=== PATIENT | female | born 1955 | race Caucasian/White ===

== ENCOUNTER 2017-10-01 16:46 | Emergency (ER) | payer OTHER, SELFPAY ==
[~2017-10-01] VITALS: Ht 177.8 cm; Wt 106.6 kg
[~2017-10-01 16:46] MED LIST: ACEASPCAF; ALBU3IS INH; ALBU90OI INH; ALPR.25; ALPR.25 PO; ALUMAG30SU PO; AMIT10; AMIT10 PO; ATEN25; ATEN50; ATOR40TA PO; BUPR100 PO; BUPR100ER PO; CEPH500 PO; CYAN500 PO; CYCL10 PO; DAYQUIL; DEPAKOTE; DIAZ5 PO; DILT240; DILT360ER; DILTIAZEM HCL; DIOVAN; DIVA125EC PO; DOCU100 PO; Detrol1 MG PO; Diovan Hct 1601 EACH PO; EFFEXOR; ERGO400 PO; ESZO3 PO; ETOD500; FAMO20 PO; FLUDROCORT PO; FLUSAL2505 INH; FURO20 PO; FURO40; Fludrocortison0.1 MG PO; GABA600 PO; GLIM2 PO; GLIP5; HYDACE5 PO; LEVFLO500 PO; LEVO750 PO; LEVSOD100 PO; LEVSOD112; LEVSOD125; LEVSOD125 PO; LEVSOD137 PO; LEVSOD150; LEVSOD150 PO; LEVSOD50; LORA.5 PO; LORA1 PO; LUNESTA; LYRICA; MECL25 PO; Micro-K10 MEQ PO; NAPR250 PO; NISO10ER; NISO10ER PO; NISOLDIPINE 34 MG PO; OMEP20ER PO; OXYACE5T; OXYACE5T PO; OXYB5; OXYB5 PO; OXYB5ER; OXYBUTIN; Omeprazole20 M1 PO; PANT20; PARO10 PO; PARO20; PARO20 PO; PAXIL; PIOG15; POTASSIUM PO; POTCHL20ER; POTCHL20ER PO; PRED5; PRED5 PO; PREDNISONE; PREG150 PO; PREG25 PO; PRIM50 PO; PROM25 PO; Percocet 5-3251 EACH PO; Prednisone20 MG; RISP2 PO; SULAR; SYNTHROID; Synthroid112 MCG PO; TOPI100 PO; TOPI25; TRAZ100; TRAZ100 PO; TRAZ150T57 PO; TRAZ50; TRAZADONE; VALS80; VALS80 PO; ZALE10; [UNRECOGNIZED DRUG - OTHER]
[2017-10-01 17:47] LABS: BASOPHILS ABSOLUTE AUTO 0.03 K/mm3 (0.00-0.23); BASOPHILS PERCENT AUTO 0 % (0-2); EOSINOPHILS ABSOLUTE AUTO 0.15 K/mm3 (0.00-0.68); EOSINOPHILS PERCENT AUTO 2 % (0-6); Hematocrit 36.5 % (33.0-51.0); Hemoglobin 11.1 g/dL (11.5-16.0); IMMATURE GRAN ABSOLUTE AUTO 0.04 K/mm3 (0.00-0.10); IMMATURE GRAN PERCENT AUTO 0 % (0-1); LYMPHOCYTES ABSOLUTE AUTO 1.96 K/mm3 (0.84-5.20); LYMPHOCYTES PERCENT AUTO 20 % (21-46); MONOCYTES ABSOLUTE AUTO 0.31 K/mm3 (0.16-1.47); MONOCYTES PERCENT AUTO 3 % (4-13); Mean Corpuscular HGB Conc 30.4 g/dL (31.5-36.5); Mean Corpuscular Volume 89 fL (80-100); Mean Platelet Volume 9.1 fL (9.1-12.4); NEUTROPHILS ABSOLUTE AUTO 7.19 K/mm3 (1.96-9.15); NEUTROPHILS PERCENT AUTO 74 % (41-73); Platelet Count 464 K/mm3 (150-400); RDW Coefficient Variation 15.5 % (11.7-14.2); RDW Standard Deviation 49.8 fL (35.1-46.3); Red Blood Cell Count 4.11 M/mm3 (3.80-5.20); White Blood Cell Count 9.68 K/mm3 (4.00-11.30)
[2017-10-01 18:00] LABS: Alanine Aminotransfer (ALT/SGP 13 U/L (12-78); Albumin, Blood 3.4 g/dL (3.4-5.0); Albumin/Globulin Ratio 0.8 (0.8-1.8); Alk Phos 146 U/L (50-136); Anion Gap 10 mmol/L (6-16); Aspartate Aminotrans (AST/SGOT 13 U/L (12-37); Bilirubin, Total 0.2 mg/dL (0.1-1.0); Blood Urea Nitrogen 14 mg/dL (8-24); Bun/Creatinine Ratio 13.5 (12.0-20.0); CO2, Blood 26 mmol/L (21-32); Calcium, Blood 8.8 mg/dL (8.5-10.1); Chloride, Blood 101 mmol/L (98-108); Creatinine, Blood 1.04 mg/dL (0.40-1.00); Globulin, Blood 4.1 g/dL (2.2-4.0); Glomerular Filtration Rate 57 (60-); Glucose, Blood 109 mg/dL (70-99); Potassium, Blood 3.6 mmol/L (3.5-5.5); Sodium, Blood 137 mmol/L (136-145); Total Protein, Blood 7.5 g/dL (6.4-8.2); Troponin I <0.015 ng/mL (0.000-0.040)
[2017-10-01] MEDS ORDERED: Norco 5-325 Ta1 EACH PO (19:55)
== END 2017-10-01 20:11 | disposition home or self-care (01) ==
LOC: ER 16:46
PROVIDERS: Emergency Medicine
DX: R07.9 Chest pain, unspecified (principal); E11.9 Type 2 diabetes mellitus without complications; I10 Essential (primary) hypertension; E78.5 Hyperlipidemia, unspecified
CPT/HCPCS: 36415; 71046; 71100; 80053; 83880; 84484; 85025; 93005; 93010; 96374; 96375; 99284; J1170; J2405

== ENCOUNTER 2017-11-25 16:25 | Observation (INO) | payer OTHER, SELFPAY ==
[~2017-11-25] VITALS: Ht 177.8 cm; Wt 103.7 kg
[~2017-11-25 16:25] MED LIST changes: +Norco 5-325 Ta1 EACH PO
[2017-11-25 17:07] LABS: BASOPHILS ABSOLUTE AUTO 0.04 K/mm3 (0.00-0.23); BASOPHILS PERCENT AUTO 1 % (0-2); EOSINOPHILS ABSOLUTE AUTO 0.09 K/mm3 (0.00-0.68); EOSINOPHILS PERCENT AUTO 1 % (0-6); Hematocrit 33.3 % (33.0-51.0); Hemoglobin 10.7 g/dL (11.5-16.0); IMMATURE GRAN ABSOLUTE AUTO 0.03 K/mm3 (0.00-0.10); IMMATURE GRAN PERCENT AUTO 0 % (0-1); LYMPHOCYTES ABSOLUTE AUTO 2.01 K/mm3 (0.84-5.20); LYMPHOCYTES PERCENT AUTO 25 % (21-46); MONOCYTES ABSOLUTE AUTO 0.44 K/mm3 (0.16-1.47); MONOCYTES PERCENT AUTO 5 % (4-13); Mean Corpuscular HGB 27.6 pg (26.0-34.0); Mean Corpuscular HGB Conc 32.1 g/dL (31.5-36.5); Mean Corpuscular Volume 86 fL (80-100); Mean Platelet Volume 8.3 fL (9.1-12.4); NEUTROPHILS PERCENT AUTO 68 % (41-73); Platelet Count 448 K/mm3 (150-400); RDW Standard Deviation 50.3 fL (35.1-46.3); Red Blood Cell Count 3.88 M/mm3 (3.80-5.20); White Blood Cell Count 8.21 K/mm3 (4.00-11.30)
[2017-11-25 17:49] LABS: Albumin, Blood 3.2 g/dL (3.4-5.0); Albumin/Globulin Ratio 0.7 (0.8-1.8); Bilirubin, Total 0.2 mg/dL (0.1-1.0); Bun/Creatinine Ratio 10.2 (12.0-20.0); Calcium, Blood 8.8 mg/dL (8.5-10.1); Creatinine, Blood 1.08 mg/dL (0.40-1.00); Globulin, Blood 4.7 g/dL (2.2-4.0); Potassium, Blood 2.7 mmol/L (3.5-5.5); Total Protein, Blood 7.9 g/dL (6.4-8.2)
[2017-11-25 18:20] LABS: Magnesium, Blood 1.9 mg/dL (1.6-2.4); Phosphorus, Blood 1.9 mg/dL (2.5-4.9); Thyroxine (T4) 12.3 ug/dL (4.8-13.9)
[2017-11-25 18:32] LABS: Triiodothyronine, Free 2.28 pg/mL (2.18-3.98)
[2017-11-25 18:34] LABS: Thyroid Stimulating Hormone 0.097 uIU/mL (0.360-4.800)
[2017-11-25] MEDS ORDERED: ATOR40TA PO (22:26)
[2017-11-25] MEDS ORDERED: POTCHL20ER PO (22:27)
[2017-11-25 22:52] LABS: Source, Urine Clean Catch
[2017-11-25 22:57] LABS: Bilirubin, Urine Neg (Neg); Blood, Urine 1+ (Neg); Glucose Qualitative, Urine Neg (Neg); Ketones, Urine Neg (Neg); Leukocyte Esterase, Urine 3+ (Neg); Nitrite, Urine Pos (Neg); Protein, Urine Neg (Neg); Urobilinogen, Urine NORM (Normal)
[2017-11-25 23:04] LABS: Appearance, Urine Clear (Clear); Color, Urine Yellow (P-Yellow)
[2017-11-25 23:05] LABS: Red Blood Cells, Urine 0-2 /hpf (0-2); White Blood Cells, Urine 25-50 /hpf (0-5)
[2017-11-25 23:06] LABS: Bacteria Many /hpf; Squamous Epithelial Cells Few /hpf (Few)
[2017-11-26 05:42] LABS: Magnesium, Blood 2.5 mg/dL (1.6-2.4)
[2017-11-26 05:43] LABS: Anion Gap 10 mmol/L (6-16); Blood Urea Nitrogen 9 mg/dL (8-24); Bun/Creatinine Ratio 9.3 (12.0-20.0); CO2, Blood 26 mmol/L (21-32); Calcium, Blood 8.5 mg/dL (8.5-10.1); Chloride, Blood 98 mmol/L (98-108); Creatinine, Blood 0.97 mg/dL (0.40-1.00); Glomerular Filtration Rate >60 (60-); Glucose, Blood 86 mg/dL (70-99); Potassium, Blood 3.1 mmol/L (3.5-5.5); Sodium, Blood 134 mmol/L (136-145)
[2017-11-27 05:17] LABS: Anion Gap 6 mmol/L (6-16); Blood Urea Nitrogen 13 mg/dL (8-24); Bun/Creatinine Ratio 13.8 (12.0-20.0); CO2, Blood 30 mmol/L (21-32); Calcium, Blood 8.6 mg/dL (8.5-10.1); Chloride, Blood 100 mmol/L (98-108); Creatinine, Blood 0.94 mg/dL (0.40-1.00); Glomerular Filtration Rate >60 (60-); Glucose, Blood 94 mg/dL (70-99); Potassium, Blood 3.5 mmol/L (3.5-5.5); Sodium, Blood 136 mmol/L (136-145)
[2017-11-27] MEDS ORDERED: SPIR25 PO (11:07)
== END 2017-11-27 12:44 | disposition home or self-care (01) ==
LOC: ER 16:25 → MEDS 16:26
PROVIDERS: Emergency Medicine; Internal Medicine
DX: E87.6 Hypokalemia (principal); E87.1 Hypo-osmolality and hyponatremia; E86.0 Dehydration; I12.9 Hypertensive chronic kidney disease with stage 1 through stage 4 chronic kidney disease, or unspecified chronic kidney disease; E11.22 Type 2 diabetes mellitus with diabetic chronic kidney disease; N18.9 Chronic kidney disease, unspecified; N17.9 Acute kidney failure, unspecified; E03.9 Hypothyroidism, unspecified; M81.0 Age-related osteoporosis without current pathological fracture; F32.9 Major depressive disorder, single episode, unspecified; K21.9 Gastro-esophageal reflux disease without esophagitis; E78.5 Hyperlipidemia, unspecified; G62.89 Other specified polyneuropathies; Z88.2 Allergy status to sulfonamides; Z88.5 Allergy status to narcotic agent; Z88.8 Allergy status to other drugs, medicaments and biological substances; Z79.891 Long term (current) use of opiate analgesic; Z90.49 Acquired absence of other specified parts of digestive tract; Z90.710 Acquired absence of both cervix and uterus
CPT/HCPCS: 36415; 80048; 80053; 81001; 82947; 83036; 83735; 84100; 84145; 84436; 84443; 84481; 85025; 85651; 86140; 87077; 87086; 87186; 93005; 93010; 96361; 96365; 96366; 96367; 96368; 96372; 96376; 97116; 97161; 97165; 97530; 97535; 99285; G0378; G8978; G8979; G8987; G8988; G8989; J0696; J1650; J2001; J3475; J3480; J7030; J7040; J7060

== ENCOUNTER 2018-01-26 15:39 | Inpatient (IN) | payer OTHER ==
[~2018-01-26] VITALS: Ht 177.8 cm; Wt 103.0 kg
[~2018-01-26 15:39] MED LIST changes: +SPIR25 PO
[2018-01-26] MEDS ORDERED: Trazodone HCl300 MG PO (15:55)
[2018-01-26 16:46] LABS: BASOPHILS ABSOLUTE AUTO 0.06 K/mm3 (0.00-0.23); BASOPHILS PERCENT AUTO 1 % (0-2); EOSINOPHILS ABSOLUTE AUTO 0.22 K/mm3 (0.00-0.68); EOSINOPHILS PERCENT AUTO 3 % (0-6); Hematocrit 34.2 % (33.0-51.0); Hemoglobin 10.5 g/dL (11.5-16.0); IMMATURE GRAN ABSOLUTE AUTO 0.02 K/mm3 (0.00-0.10); IMMATURE GRAN PERCENT AUTO 0 % (0-1); LYMPHOCYTES ABSOLUTE AUTO 2.81 K/mm3 (0.84-5.20); LYMPHOCYTES PERCENT AUTO 35 % (21-46); MONOCYTES ABSOLUTE AUTO 0.77 K/mm3 (0.16-1.47); MONOCYTES PERCENT AUTO 9 % (4-13); Mean Corpuscular HGB 27.1 pg (26.0-34.0); Mean Corpuscular HGB Conc 30.7 g/dL (31.5-36.5); Mean Corpuscular Volume 88 fL (80-100); Mean Platelet Volume 9.3 fL (9.1-12.4); NEUTROPHILS ABSOLUTE AUTO 4.27 K/mm3 (1.96-9.15); NEUTROPHILS PERCENT AUTO 53 % (41-73); Platelet Count 391 K/mm3 (150-400); RDW Coefficient Variation 14.7 % (11.7-14.2); RDW Standard Deviation 47.3 fL (35.1-46.3); Red Blood Cell Count 3.88 M/mm3 (3.80-5.20); White Blood Cell Count 8.15 K/mm3 (4.00-11.30)
[2018-01-26 17:10] LABS: Alanine Aminotransfer (ALT/SGP 13 U/L (12-78); Albumin, Blood 3.3 g/dL (3.4-5.0); Albumin/Globulin Ratio 0.8 (0.8-1.8); Alk Phos 111 U/L (50-136); Anion Gap 7 mmol/L (6-16); Aspartate Aminotrans (AST/SGOT 15 U/L (12-37); Bilirubin, Total 0.2 mg/dL (0.1-1.0); Blood Urea Nitrogen 8 mg/dL (8-24); Bun/Creatinine Ratio 8.4 (12.0-20.0); CO2, Blood 26 mmol/L (21-32); Calcium, Blood 8.7 mg/dL (8.5-10.1); Chloride, Blood 105 mmol/L (98-108); Creatinine, Blood 0.95 mg/dL (0.40-1.00); Globulin, Blood 3.9 g/dL (2.2-4.0); Glomerular Filtration Rate >60 (60-); Glucose, Blood 86 mg/dL (70-99); Magnesium, Blood 2.1 mg/dL (1.6-2.4); Potassium, Blood 3.6 mmol/L (3.5-5.5); Sodium, Blood 138 mmol/L (136-145); Total Protein, Blood 7.2 g/dL (6.4-8.2)
[2018-01-26 17:17] LABS: Thyroid Stimulating Hormone 0.667 uIU/mL (0.360-4.800); Troponin I <0.015 ng/mL (0.000-0.040)
[2018-01-26 21:54] LABS: Source, Urine Clean Catch
[2018-01-26 21:56] LABS: Bilirubin, Urine Neg (Neg); Blood, Urine Neg (Neg); Glucose Qualitative, Urine Neg (Neg); Ketones, Urine Neg (Neg); Leukocyte Esterase, Urine 3+ (Neg); Nitrite, Urine Neg (Neg); Protein, Urine Neg (Neg); Specific Gravity, Urine 1.005 (1.003-1.022); Urobilinogen, Urine NORM (Normal)
[2018-01-26 22:09] LABS: Appearance, Urine Clear (Clear); Color, Urine Yellow (P-Yellow)
[2018-01-26 22:11] LABS: Amorphous Light (0-Heavy); Bacteria Many /hpf; Red Blood Cells, Urine 0-2 /hpf (0-2); Squamous Epithelial Cells Few /hpf (Few)
[2018-01-27 03:43] LABS: Hemoglobin 9.7 g/dL (11.5-16.0); Mean Corpuscular HGB 27.2 pg (26.0-34.0); Mean Corpuscular HGB Conc 31.3 g/dL (31.5-36.5); Mean Corpuscular Volume 87 fL (80-100); Mean Platelet Volume 9.1 fL (9.1-12.4); Platelet Count 375 K/mm3 (150-400); RDW Coefficient Variation 14.6 % (11.7-14.2); RDW Standard Deviation 47.2 fL (35.1-46.3); Red Blood Cell Count 3.56 M/mm3 (3.80-5.20); White Blood Cell Count 11.08 K/mm3 (4.00-11.30)
[2018-01-27 04:00] LABS: Anion Gap 7 mmol/L (6-16); Blood Urea Nitrogen 8 mg/dL (8-24); Bun/Creatinine Ratio 9.5 (12.0-20.0); CO2, Blood 27 mmol/L (21-32); Calcium, Blood 8.4 mg/dL (8.5-10.1); Chloride, Blood 105 mmol/L (98-108); Creatinine, Blood 0.84 mg/dL (0.40-1.00); Glomerular Filtration Rate >60 (60-); Glucose, Blood 142 mg/dL (70-99); Potassium, Blood 3.7 mmol/L (3.5-5.5); Sodium, Blood 139 mmol/L (136-145)
[2018-01-27] MEDS ORDERED: FOLI400 PO (10:34)
[2018-01-27] MEDS ORDERED: PRAZ1 PO (10:36)
[2018-01-27] MEDS ORDERED: PRIM50 PO (10:38)
[2018-01-27] MEDS ORDERED: ARIP10 PO (10:39)
[2018-01-27] MEDS ORDERED: OMEPRAZOLE MAGN20 MG PO (10:39)
[2018-01-27] MEDS ORDERED: PRED5 PO ×2 (10:41)
[2018-01-27] MEDS ORDERED: SPIR25 PO (10:44)
[2018-01-28 05:26] LABS: Anion Gap 8 mmol/L (6-16); Blood Urea Nitrogen 9 mg/dL (8-24); Bun/Creatinine Ratio 9.4 (12.0-20.0); CO2, Blood 28 mmol/L (21-32); Calcium, Blood 8.9 mg/dL (8.5-10.1); Chloride, Blood 101 mmol/L (98-108); Creatinine, Blood 0.96 mg/dL (0.40-1.00); Glomerular Filtration Rate >60 (60-); Glucose, Blood 139 mg/dL (70-99); Potassium, Blood 3.8 mmol/L (3.5-5.5); Sodium, Blood 137 mmol/L (136-145)
[2018-01-29] MEDS ORDERED: LEVSOD150 PO (11:41)
[2018-01-29] MEDS ORDERED: CIPR250 PO (11:47)
[2018-01-29] MEDS ORDERED: HYDRA25 PO (11:49)
[2018-01-29] MEDS ORDERED: CLON.1 PO (11:49)
[2018-01-29] MEDS ORDERED: LOSA50 PO (11:50)
[2018-01-29] MEDS ORDERED: METO50ER PO (11:50)
[2018-01-29] MEDS ORDERED: Transderm-Scop1 EACH TD (11:51)
== END 2018-01-29 13:08 | disposition home or self-care (01) | DRG 103 ==
LOC: ER 15:39 → ICUE 15:40 → ICUW 15:40 → ICUE 20:24 → MEDS 20:34 → ICUE 01-27 11:15 → MEDS 01-27 17:57 → ENPENDDIS 01-29 09:30 → MEDS 01-29 13:08
PROVIDERS: Emergency Medicine; Internal Medicine; Nurse Practitioner Acute Care
DX: G44.89 Other headache syndrome (principal); N39.0 Urinary tract infection, site not specified; I16.0 Hypertensive urgency; E11.9 Type 2 diabetes mellitus without complications; T38.0X5A Adverse effect of glucocorticoids and synthetic analogues, initial encounter; R51 Headache; E03.9 Hypothyroidism, unspecified; F41.9 Anxiety disorder, unspecified; E78.5 Hyperlipidemia, unspecified; H81.10 Benign paroxysmal vertigo, unspecified ear; E11.65 Type 2 diabetes mellitus with hyperglycemia
CPT/HCPCS: 36415; 70450; 71046; 80048; 80053; 81001; 82947; 83735; 83880; 84443; 84484; 85025; 85027; 87077; 87086; 87186; 93005; 93010; 96361; 96374; 96375; 97162; 97530; 99285; G0378; G8978; G8979; J0360; J1200; J1650; J2060; J2405; J2765; J3010; J7030

== ENCOUNTER 2018-02-25 11:23 | Emergency (ER) | payer OTHER, SELFPAY ==
[~2018-02-25] VITALS: Ht 177.8 cm; Wt 98.0 kg
[~2018-02-25 11:23] MED LIST changes: +ARIP10 PO; +CIPR250 PO; +CLON.1 PO; +FOLI400 PO; +HYDRA25 PO; +LOSA50 PO; +METO50ER PO; +OMEPRAZOLE MAGN20 MG PO; +PRAZ1 PO; +Transderm-Scop1 EACH TD; +Trazodone HCl300 MG PO
[2018-02-25 12:12] LABS: BASOPHILS ABSOLUTE AUTO 0.04 K/mm3 (0.00-0.23); BASOPHILS PERCENT AUTO 0 % (0-2); EOSINOPHILS ABSOLUTE AUTO 0.09 K/mm3 (0.00-0.68); EOSINOPHILS PERCENT AUTO 1 % (0-6); Hematocrit 35.8 % (33.0-51.0); Hemoglobin 11.5 g/dL (11.5-16.0); IMMATURE GRAN ABSOLUTE AUTO 0.04 K/mm3 (0.00-0.10); IMMATURE GRAN PERCENT AUTO 0 % (0-1); LYMPHOCYTES ABSOLUTE AUTO 1.69 K/mm3 (0.84-5.20); LYMPHOCYTES PERCENT AUTO 17 % (21-46); MONOCYTES ABSOLUTE AUTO 0.53 K/mm3 (0.16-1.47); MONOCYTES PERCENT AUTO 5 % (4-13); Mean Corpuscular HGB 26.9 pg (26.0-34.0); Mean Corpuscular HGB Conc 32.1 g/dL (31.5-36.5); Mean Corpuscular Volume 84 fL (80-100); NEUTROPHILS PERCENT AUTO 76 % (41-73); Platelet Count 409 K/mm3 (150-400); RDW Coefficient Variation 13.7 % (11.7-14.2); RDW Standard Deviation 41.7 fL (35.1-46.3); Red Blood Cell Count 4.28 M/mm3 (3.80-5.20); White Blood Cell Count 10.09 K/mm3 (4.00-11.30)
[2018-02-25 12:35] LABS: Alanine Aminotransfer (ALT/SGP 25 U/L (12-78); Albumin, Blood 3.6 g/dL (3.4-5.0); Albumin/Globulin Ratio 0.9 (0.8-1.8); Alk Phos 105 U/L (50-136); Anion Gap 12 mmol/L (6-16); Aspartate Aminotrans (AST/SGOT 24 U/L (12-37); Bilirubin, Total 0.6 mg/dL (0.1-1.0); Blood Urea Nitrogen 15 mg/dL (8-24); Bun/Creatinine Ratio 15.8 (12.0-20.0); CO2, Blood 25 mmol/L (21-32); Calcium, Blood 9.4 mg/dL (8.5-10.1); Chloride, Blood 101 mmol/L (98-108); Creatinine, Blood 0.95 mg/dL (0.40-1.00); Globulin, Blood 4.1 g/dL (2.2-4.0); Glomerular Filtration Rate >60 (60-); Glucose, Blood 179 mg/dL (70-99); Potassium, Blood 3.5 mmol/L (3.5-5.5); Sodium, Blood 138 mmol/L (136-145); Total Protein, Blood 7.7 g/dL (6.4-8.2)
== END 2018-02-25 15:36 | disposition home or self-care (01) ==
LOC: ER 11:23
PROVIDERS: Physician Assistant
DX: R53.1 Weakness (principal); E61.1 Iron deficiency; Z88.2 Allergy status to sulfonamides; Z88.8 Allergy status to other drugs, medicaments and biological substances; Z88.5 Allergy status to narcotic agent; Z79.899 Other long term (current) drug therapy; Z79.52 Long term (current) use of systemic steroids; Z79.2 Long term (current) use of antibiotics; F41.9 Anxiety disorder, unspecified; I10 Essential (primary) hypertension; F32.9 Major depressive disorder, single episode, unspecified; E11.9 Type 2 diabetes mellitus without complications
CPT/HCPCS: 36415; 80053; 85025; 93005; 93010; 99283

== ENCOUNTER → 2019-01-11 | Outpatient (CLI) | payer OTHER ==
[~2019-01-11] MED LIST changes: +CLARITIN10 MG PO; +Ferrous Sulfat325 M2 PO; +INSULANPEN SC; +LEVSOD112 PO; +Novolog100 UNIT/2 SC; +Primidone50 MG PO; +TOLT4 PO
[2019-01-11 15:37] LABS: Protein, Urine Random 39.2 mg/dL (0.0-11.9)
== END | disposition home or self-care (01) ==
LOC: LAB 14:23 → LAB SHORT 14:23
PROVIDERS: Internal Medicine
DX: N18.3 Chronic kidney disease, stage 3 (moderate) (principal)
CPT/HCPCS: 82570; 84156

== ENCOUNTER → 2019-03-29 | Outpatient (CLI) | payer OTHER ==
[2019-03-29 13:56] LABS: Bilirubin, Urine Neg (Neg); Blood, Urine Neg (Neg); Glucose Qualitative, Urine 2+ (Neg); Ketones, Urine 1+ (Neg); Leukocyte Esterase, Urine 1+ (Neg); Nitrite, Urine Neg (Neg); Protein, Urine 1+ (Neg); Urobilinogen, Urine 1+ (Normal)
[2019-03-29 14:18] LABS: Appearance, Urine Hazy (Clear); Color, Urine Yellow (P-Yellow)
[2019-03-29 14:19] LABS: Bacteria Few /hpf; Calcium Oxalate Crystals Many /hpf; Red Blood Cells, Urine 0-2 /hpf (0-2); Squamous Epithelial Cells Mod /hpf (Few); Uric Acid Crystals Few /hpf
== END | disposition home or self-care (01) ==
LOC: LAB 12:40 → LAB SHORT 12:40
PROVIDERS: Internal Medicine
DX: N18.3 Chronic kidney disease, stage 3 (moderate) (principal)
CPT/HCPCS: 81001

== ENCOUNTER 2019-05-11 13:10 | Emergency (ER) | payer OTHER ==
[~2019-05-11] VITALS: Ht 177.8 cm; Wt 95.7 kg
== END 2019-05-11 15:16 | disposition home or self-care (01) ==
LOC: ER 13:10
DX: F32.9 Major depressive disorder, single episode, unspecified (principal); R07.89 Other chest pain; F41.9 Anxiety disorder, unspecified; I10 Essential (primary) hypertension; E11.9 Type 2 diabetes mellitus without complications; Z88.2 Allergy status to sulfonamides; Z88.8 Allergy status to other drugs, medicaments and biological substances; Z88.5 Allergy status to narcotic agent; Z79.899 Other long term (current) drug therapy; Z79.52 Long term (current) use of systemic steroids; Z79.4 Long term (current) use of insulin
CPT/HCPCS: 36415; 82947; 84484; 93005; 93010; 99284-25

== ENCOUNTER → 2019-12-15 | Outpatient (CLI) | payer OTHER ==
[2019-12-15 17:06] LABS: Source, Urine Clean Catch
[2019-12-15 18:51] LABS: Bilirubin, Urine Neg (Neg); Blood, Urine 1+ (Neg); Glucose Qualitative, Urine Neg (Neg); Ketones, Urine Neg (Neg); Leukocyte Esterase, Urine 2+ (Neg); Nitrite, Urine Neg (Neg); Protein, Urine Neg (Neg); Specific Gravity, Urine 1.025 (1.003-1.022); Urobilinogen, Urine 1+ (Normal)
[2019-12-15 19:01] LABS: Appearance, Urine Hazy (Clear); Color, Urine Yellow (P-Yellow)
[2019-12-15 19:02] LABS: Red Blood Cells, Urine 0-2 /hpf (0-2); White Blood Cells, Urine 25-50 /hpf (0-5)
[2019-12-15 19:03] LABS: Bacteria Many /hpf; Mucus Light (0-Heavy); Squamous Epithelial Cells Few /hpf (Few)
== END | disposition home or self-care (01) ==
LOC: LAB 11:45 → LAB SHORT 11:45
PROVIDERS: Obstetrics & Gynecology
DX: N39.41 Urge incontinence (principal)
CPT/HCPCS: 81001; 87077; 87086; 87186

== ENCOUNTER → 2020-12-08 | Outpatient (CLI) | payer MEDICARE, OTHER ==
[~2020-12-08] MED LIST changes: +B COMPLEX FORM0.4 MG; +CLON1; +CLON1 PO; +EUTHYROX88 MCG PO; +GABA100 PO; +HYDHCL25 PO; +HYOS.125; +Halcion0.25 MG; +LATUDA60 M2; -LEVSOD112 PO; +METF500C PO; -OMEPRAZOLE MAGN20 MG PO; +ONDA4; +POTA10T PO; +VITAMIN D325 MC3; +ZOFRAN4 MG PO
== END | disposition home or self-care (01) ==
LOC: LAB EV 15:39 → LAB SHORT 15:39
DX: N39.0 Urinary tract infection, site not specified (principal)
CPT/HCPCS: 87077; 87086; 87186

== ENCOUNTER 2020-12-27 06:09 | Day surgery (SDC) | payer MEDICARE, OTHER ==
[~2020-12-27] VITALS: Ht 177.8 cm; Wt 101.4 kg
[~2020-12-27 06:09] MED LIST changes: -B COMPLEX FORM0.4 MG; -CLON1; -CLON1 PO; -EUTHYROX88 MCG PO; -GABA100 PO; -HYDHCL25 PO; -HYOS.125; -Halcion0.25 MG; -LATUDA60 M2; +LEVSOD112 PO; -METF500C PO; +OMEPRAZOLE MAGN20 MG PO; -ONDA4; -POTA10T PO; -VITAMIN D325 MC3; -ZOFRAN4 MG PO
--- NOTE | 2020-12-27 08:39 | NUR ---
12/27/20 0839 Trudi Escobar LATE ENTRY----ZOFRAN 4MG IV GIVEN AT 0811 IN STEPDOWN FOR NAUSEA. UNABLE TO SCAN THIS INTO EMAR-WOULD NOT COME UP ON PATIENT PROFILE. AFTER ZOFRAN GIVEN THE PATIENT STATED HER NAUSEA HAD RESOLVED
== END 2020-12-27 08:30 | disposition home or self-care (01) ==
LOC: ORSCSDS 06:09
PROVIDERS: Internal Medicine Gastroenterology
PROC: 0D788ZZ Dilation of Small Intestine, Via Natural or Artificial Opening Endoscopic (ICD-10-PCS; principal; 2020-12-27 07:30)
PROC: 0DB78ZX Excision of Stomach, Pylorus, Via Natural or Artificial Opening Endoscopic, Diagnostic (ICD-10-PCS; principal; 2020-12-27 07:30)
DX: R11.2 Nausea with vomiting, unspecified (principal); K21.9 Gastro-esophageal reflux disease without esophagitis; R10.13 Epigastric pain; K29.70 Gastritis, unspecified, without bleeding; K56.699 Other intestinal obstruction unspecified as to partial versus complete obstruction; I10 Essential (primary) hypertension; G47.33 Obstructive sleep apnea (adult) (pediatric); E11.9 Type 2 diabetes mellitus without complications; Z79.899 Other long term (current) drug therapy; Z79.84 Long term (current) use of oral hypoglycemic drugs
CPT/HCPCS: 82947; 88305; 88342; C1726; J0461; J2405; J2704; J7120

== ENCOUNTER → 2021-01-22 | Outpatient (CLI) | payer MEDICARE, OTHER ==
[~2021-01-22] MED LIST changes: +B COMPLEX FORM0.4 MG; +CLON1; +CLON1 PO; +EUTHYROX88 MCG PO; +GABA100 PO; +HYDHCL25 PO; +HYOS.125; +Halcion0.25 MG; +LATUDA60 M2; -LEVSOD112 PO; +METF500C PO; -OMEPRAZOLE MAGN20 MG PO; +ONDA4; +POTA10T PO; +VITAMIN D325 MC3; +ZOFRAN4 MG PO
[2021-01-22 16:13] LABS: BASOPHILS ABSOLUTE AUTO 0.06 K/mm3 (0.00-0.23); BASOPHILS PERCENT AUTO 1 % (0-2); EOSINOPHILS PERCENT AUTO 2 % (0-6); Hematocrit 40.5 % (33.0-51.0); Hemoglobin 13.3 g/dL (11.5-16.0); IMMATURE GRAN ABSOLUTE AUTO 0.02 K/mm3 (0.00-0.10); IMMATURE GRAN PERCENT AUTO 0 % (0-1); LYMPHOCYTES ABSOLUTE AUTO 2.97 K/mm3 (0.84-5.20); LYMPHOCYTES PERCENT AUTO 36 % (21-46); MONOCYTES PERCENT AUTO 6 % (4-13); Mean Corpuscular HGB 29.8 pg (26.0-34.0); Mean Corpuscular HGB Conc 32.8 g/dL (31.5-36.5); Mean Corpuscular Volume 91 fL (80-100); Mean Platelet Volume 9.5 fL (9.1-12.4); NEUTROPHILS ABSOLUTE AUTO 4.56 K/mm3 (1.96-9.15); NEUTROPHILS PERCENT AUTO 55 % (41-73); Platelet Count 285 K/mm3 (150-400); RDW Standard Deviation 46.5 fL (35.1-46.3); Red Blood Cell Count 4.46 M/mm3 (3.80-5.20); White Blood Cell Count 8.31 K/mm3 (4.00-11.30)
[2021-01-22 16:43] LABS: Albumin, Blood 3.1 g/dL (3.4-5.0); Albumin/Globulin Ratio 0.8 (0.8-1.8); Bilirubin, Total 0.4 mg/dL (0.1-1.0); Bun/Creatinine Ratio 9.8 (12.0-20.0); Calcium, Blood 9.1 mg/dL (8.5-10.1); Creatinine, Blood 1.33 mg/dL (0.40-1.00); Globulin, Blood 3.8 g/dL (2.2-4.0); Total Protein, Blood 6.9 g/dL (6.4-8.2)
== END | disposition home or self-care (01) ==
LOC: LAB EV 16:08 → LAB SHORT 16:08
PROVIDERS: Physician Assistant
DX: R10.9 Unspecified abdominal pain (principal)
CPT/HCPCS: 80053; 83690; 85025

== ENCOUNTER 2021-01-26 11:59 | Day surgery (SDC) | payer MEDICARE, OTHER ==
[~2021-01-26] VITALS: Ht 177.8 cm; Wt 100.8 kg
[~2021-01-26 11:59] MED LIST changes: -B COMPLEX FORM0.4 MG; -HYOS.125; -Halcion0.25 MG; -LATUDA60 M2; -ONDA4; -VITAMIN D325 MC3
[2021-01-26] MEDS ORDERED: LATUDA60 M2 (12:32)
[2021-01-26] MEDS ORDERED: OXYB5 (12:33)
[2021-01-26] MEDS ORDERED: Halcion0.25 MG (12:34)
[2021-01-26] MEDS ORDERED: B COMPLEX FORM0.4 MG (12:35)
[2021-01-26] MEDS ORDERED: VITAMIN D325 MC3 (12:35)
[2021-01-26] MEDS ORDERED: HYOS.125 (12:36)
[2021-01-26] MEDS ORDERED: ONDA4 (12:36)
--- NOTE | 2021-01-26 12:57 | NUR ---
01/26/21 1257 PAYTON PYLE ONE ATTEMPT BY OLESYA IN RH MISSED SECOND SUCCESSFUL BY OLESYA IN LH PT TOW
== END 2021-01-26 15:25 | disposition home or self-care (01) ==
LOC: ORSCSDS 11:59
PROVIDERS: Internal Medicine Gastroenterology
PROC: 0D758ZZ Dilation of Esophagus, Via Natural or Artificial Opening Endoscopic (ICD-10-PCS; principal; 2021-01-26 13:30)
PROC: 0DBL8ZX Excision of Transverse Colon, Via Natural or Artificial Opening Endoscopic, Diagnostic (ICD-10-PCS; principal; 2021-01-26 13:30)
PROC: 0DBK8ZX Excision of Ascending Colon, Via Natural or Artificial Opening Endoscopic, Diagnostic (ICD-10-PCS; principal; 2021-01-26 13:30)
DX: K22.2 Esophageal obstruction (principal); R10.9 Unspecified abdominal pain; D12.2 Benign neoplasm of ascending colon; D12.3 Benign neoplasm of transverse colon; Z86.010 Personal history of colon polyps; Z98.84 Bariatric surgery status; K57.30 Diverticulosis of large intestine without perforation or abscess without bleeding; K64.4 Residual hemorrhoidal skin tags; I10 Essential (primary) hypertension; E11.9 Type 2 diabetes mellitus without complications; N18.30 Chronic kidney disease, stage 3 unspecified; Z79.4 Long term (current) use of insulin; Z79.899 Other long term (current) drug therapy
CPT/HCPCS: 82947; 88305; C1726; J2704

== ENCOUNTER 2021-02-13 07:41 | Day surgery (SDC) | payer MEDICARE, OTHER ==
[~2021-02-13] VITALS: Ht 177.8 cm; Wt 98.6 kg
[~2021-02-13 07:41] MED LIST changes: +B COMPLEX FORM0.4 MG; +HYOS.125; +Halcion0.25 MG; +LATUDA60 M2; +ONDA4; +VITAMIN D325 MC3
== END 2021-02-13 09:55 | disposition home or self-care (01) ==
LOC: ORSCSDS 07:41
PROVIDERS: Internal Medicine Gastroenterology
PROC: 0D768ZZ Dilation of Stomach, Via Natural or Artificial Opening Endoscopic (ICD-10-PCS; principal; 2021-02-13 09:00)
DX: K22.2 Esophageal obstruction (principal); K25.9 Gastric ulcer, unspecified as acute or chronic, without hemorrhage or perforation; Z98.84 Bariatric surgery status; G47.33 Obstructive sleep apnea (adult) (pediatric)
CPT/HCPCS: 82947; C1726; J2704; J7120

== ENCOUNTER → 2022-04-05 | Outpatient (CLI) | payer MEDICARE, OTHER ==
[~2022-04-05] MED LIST changes: +LIDO700A20 TOP; +OXAYDO5 M1 PO; +OXYC5 PO
== END | disposition home or self-care (01) ==
LOC: LAB 15:42 → LAB SHORT 15:42
DX: R94.31 Abnormal electrocardiogram [ECG] [EKG] (principal); R79.89 Other specified abnormal findings of blood chemistry
CPT/HCPCS: 84480; 84484

== ENCOUNTER 2022-05-07 12:39 | Day surgery (SDC) | payer MEDICARE, OTHER ==
[~2022-05-07] VITALS: Ht 177.8 cm; Wt 89.7 kg
[~2022-05-07 12:39] MED LIST changes: +DOC250 PO; +TRAM50 PO
--- NOTE | 2022-05-07 15:42 | NUR ---
05/07/22 1542 LETHA RAMON PT NAUSEOUS AFTER FIRST DOSE OF LIDOCAINE VISCOUS. ZOFRAN 4MG GIVEN PER DR HUTCHINSON ORDER. LIDOCAINE 2% SPRAY INTO MOUTH PER DR ORDER, PT BEGAN TO FEEL NAUSEOUS AGAIN. DR HUTCHINSON GRABBING ZOFRAN ADDITIONAL DOSE, RN GAVE PT EMESIS BASIN. NO VOMITING, JUST NAUSEA AT THIS TIME
--- NOTE | 2022-05-07 17:02 | NUR ---
05/07/22 1702 LETHA RAMON LATE CHART- 1616 DR BUITRAGO IN ROOM UPDATING AND PT ON SITUATION. FENTANYL GIVEN ORDERED SEE CHARTING. PT TAKEN TO CT BY RN AND RETURNED AT 1702 PT VITALS 151/74, 60 HR 16 99 O2 WILL CONITUE TO MONITOR
== END 2022-05-07 18:37 ==
LOC: ORSCSDS 12:39
PROVIDERS: Internal Medicine Gastroenterology
PROC: 0D788ZZ Dilation of Small Intestine, Via Natural or Artificial Opening Endoscopic (ICD-10-PCS; principal; 2022-05-07 14:15)
PROC: 0D768ZZ Dilation of Stomach, Via Natural or Artificial Opening Endoscopic (ICD-10-PCS; principal; 2022-05-07 14:15)
DX: R13.10 Dysphagia, unspecified (principal); R11.2 Nausea with vomiting, unspecified; Z98.84 Bariatric surgery status; K94.23 Gastrostomy malfunction; Y83.2 Surgical operation with anastomosis, bypass or graft as the cause of abnormal reaction of the patient, or of later complication, without mention of misadventure at the time of the procedure; I12.9 Hypertensive chronic kidney disease with stage 1 through stage 4 chronic kidney disease, or unspecified chronic kidney disease; E11.22 Type 2 diabetes mellitus with diabetic chronic kidney disease; N18.4 Chronic kidney disease, stage 4 (severe); E03.9 Hypothyroidism, unspecified; Z79.899 Other long term (current) drug therapy; G47.33 Obstructive sleep apnea (adult) (pediatric)
CPT/HCPCS: 71260; 74160; 82947; A9270; C1726; J2405; J2550; J2704; J3010; J7120; Q9967

== ENCOUNTER 2022-07-02 12:04 | Emergency (ER) | payer MEDICARE, OTHER ==
[~2022-07-02] VITALS: Ht 177.8 cm; Wt 81.7 kg
[2022-07-02 13:59] LABS: BASOPHILS ABSOLUTE AUTO 0.07 K/mm3 (0.00-0.23); BASOPHILS PERCENT AUTO 1 % (0-2); EOSINOPHILS ABSOLUTE AUTO 0.07 K/mm3 (0.00-0.68); EOSINOPHILS PERCENT AUTO 1 % (0-6); Hematocrit 51.2 % (33.0-51.0); Hemoglobin 17.6 g/dL (11.5-16.0); IMMATURE GRAN ABSOLUTE AUTO 0.03 K/mm3 (0.00-0.10); IMMATURE GRAN PERCENT AUTO 0 % (0-1); LYMPHOCYTES ABSOLUTE AUTO 3.51 K/mm3 (0.84-5.20); LYMPHOCYTES PERCENT AUTO 36 % (21-46); MONOCYTES ABSOLUTE AUTO 0.66 K/mm3 (0.16-1.47); MONOCYTES PERCENT AUTO 7 % (4-13); Mean Corpuscular HGB 32.3 pg (26.0-34.0); Mean Corpuscular HGB Conc 34.4 g/dL (31.5-36.5); Mean Corpuscular Volume 94 fL (80-100); Mean Platelet Volume 8.9 fL (9.1-12.4); NEUTROPHILS ABSOLUTE AUTO 5.54 K/mm3 (1.96-9.15); NEUTROPHILS PERCENT AUTO 56 % (41-73); Platelet Count 300 K/mm3 (150-400); RDW Coefficient Variation 13.5 % (11.7-14.2); RDW Standard Deviation 46.9 fL (35.1-46.3); Red Blood Cell Count 5.45 M/mm3 (3.80-5.20); White Blood Cell Count 9.88 K/mm3 (4.00-11.30)
[2022-07-02 14:19] LABS: Albumin, Blood 3.4 g/dL (3.4-5.0); Albumin/Globulin Ratio 0.8 (0.8-1.8); Bun/Creatinine Ratio 14.1 (12.0-20.0); Calcium, Blood 9.8 mg/dL (8.5-10.1); Creatinine, Blood 0.78 mg/dL (0.40-1.00); Globulin, Blood 4.1 g/dL (2.2-4.0); Potassium, Blood 3.3 mmol/L (3.5-5.5); Total Protein, Blood 7.5 g/dL (6.4-8.2)
[2022-07-02] MEDS ORDERED: PHENERGAN25 MG PR (16:48)
== END 2022-07-02 17:20 | disposition home or self-care (01) ==
LOC: ER 12:04
PROVIDERS: Physician Assistant
DX: R11.2 Nausea with vomiting, unspecified (principal); E86.0 Dehydration; I12.9 Hypertensive chronic kidney disease with stage 1 through stage 4 chronic kidney disease, or unspecified chronic kidney disease; N18.30 Chronic kidney disease, stage 3 unspecified; Z87.19 Personal history of other diseases of the digestive system; Z88.2 Allergy status to sulfonamides; Z88.5 Allergy status to narcotic agent; Z88.8 Allergy status to other drugs, medicaments and biological substances; Z88.6 Allergy status to analgesic agent; Z79.899 Other long term (current) drug therapy
CPT/HCPCS: 71045; 80053; 83690; 84484; 85025; 93005; 93010; J2550; J7030

== ENCOUNTER 2022-07-05 14:30 | Day surgery (SDC) | payer MEDICARE, OTHER ==
[~2022-07-05] VITALS: Ht 177.8 cm; Wt 82.2 kg
[~2022-07-05 14:30] MED LIST changes: +PHENERGAN25 MG PR
--- NOTE | 2022-07-05 16:49 | NUR ---
07/05/22 1649 SPEEDY LEMONS SCOPE:[id number]
== END 2022-07-05 17:06 | disposition home or self-care (01) ==
LOC: ORSCSDS 14:30
PROVIDERS: Internal Medicine Gastroenterology
PROC: 0DJ08ZZ Inspection of Upper Intestinal Tract, Via Natural or Artificial Opening Endoscopic (ICD-10-PCS; principal; 2022-07-05 15:45)
DX: K28.9 Gastrojejunal ulcer, unspecified as acute or chronic, without hemorrhage or perforation (principal); R11.2 Nausea with vomiting, unspecified; K22.2 Esophageal obstruction; Z98.84 Bariatric surgery status; F32.A Depression, unspecified; E11.9 Type 2 diabetes mellitus without complications; K76.0 Fatty (change of) liver, not elsewhere classified; I10 Essential (primary) hypertension; K21.9 Gastro-esophageal reflux disease without esophagitis; Z79.899 Other long term (current) drug therapy
CPT/HCPCS: 82947; C1726; J0330; J0461; J2405; J2704; J7120

== ENCOUNTER 2022-08-07 14:36 | Day surgery (SDC) | payer MEDICARE, OTHER ==
[~2022-08-07] VITALS: Ht 177.8 cm; Wt 78.9 kg
[2022-08-07] MEDS ORDERED: OMEP20ER (14:55)
[2022-08-07] MEDS ORDERED: EUTHYROX88 MCG (14:55)
[2022-08-07] MEDS ORDERED: PROM12.5S (14:56)
== END 2022-08-07 17:28 | disposition home or self-care (01) ==
LOC: ORSCSDS 14:36
PROVIDERS: Internal Medicine Gastroenterology
PROC: 0D7A8ZZ Dilation of Jejunum, Via Natural or Artificial Opening Endoscopic (ICD-10-PCS; principal; 2022-08-07 15:45)
PROC: 0D768ZZ Dilation of Stomach, Via Natural or Artificial Opening Endoscopic (ICD-10-PCS; principal; 2022-08-07 15:45)
DX: K28.9 Gastrojejunal ulcer, unspecified as acute or chronic, without hemorrhage or perforation (principal); K31.89 Other diseases of stomach and duodenum; Z98.84 Bariatric surgery status; K74.60 Unspecified cirrhosis of liver; E11.9 Type 2 diabetes mellitus without complications; I10 Essential (primary) hypertension; I12.9 Hypertensive chronic kidney disease with stage 1 through stage 4 chronic kidney disease, or unspecified chronic kidney disease; E11.22 Type 2 diabetes mellitus with diabetic chronic kidney disease; N18.31 Chronic kidney disease, stage 3a; E78.5 Hyperlipidemia, unspecified; Z79.899 Other long term (current) drug therapy
CPT/HCPCS: 82947; A9270; C1726; J0330; J0461; J2405; J2704; J7120; Q9968

== ENCOUNTER 2022-09-18 12:55 | Day surgery (SDC) | payer MEDICARE, OTHER ==
[~2022-09-18] VITALS: Ht 177.8 cm; Wt 73.6 kg
[~2022-09-18 12:55] MED LIST changes: +EUTHYROX88 MCG; +OMEP20ER; +PROM12.5S
[2022-09-18] MEDS ORDERED: MYLANTA GAS MIN42 MG (13:51)
--- NOTE | 2022-09-18 16:29 | NUR ---
09/18/22 678William Yusuf UPON ADMISSION TO STEP DOWN PT COMPLAINED OF HEADACHE AT 8/10WORST TO THE BASE OF HER SKULL. DR MUÑOZ NOTIFIED. PER ANESTHESIA ORDERS PT WAS GIVEN FENTANYL 25MCG X4 AT FIVE MINUTE INTERVALS FOR A TOTAL OF 100MCG. GIVEN AT 1520, 1525, 1530 AND 1535 UNTIL PAIN WAS REPORTED TO BE DOWN TO 6/10 AND SHE WAS READY FOR DISCHARGE HOME. PT VERBALIZED IMPROVMENT PRIOR TO DISCHARGE HOME. SHE WAS ENCOURAGED TO EAT, HYDRATE AND REST, SHE VERBALIZED UNDERSTANDING.
== END 2022-09-18 16:10 | disposition home or self-care (01) ==
LOC: ORSCSDS 12:55
PROVIDERS: Internal Medicine Gastroenterology
PROC: 0D768ZZ Dilation of Stomach, Via Natural or Artificial Opening Endoscopic (ICD-10-PCS; principal; 2022-09-18 13:30)
PROC: 0D7A8ZZ Dilation of Jejunum, Via Natural or Artificial Opening Endoscopic (ICD-10-PCS; principal; 2022-09-18 13:30)
DX: K28.9 Gastrojejunal ulcer, unspecified as acute or chronic, without hemorrhage or perforation (principal); K28.1 Acute gastrojejunal ulcer with perforation; Z98.84 Bariatric surgery status; K21.9 Gastro-esophageal reflux disease without esophagitis; I12.9 Hypertensive chronic kidney disease with stage 1 through stage 4 chronic kidney disease, or unspecified chronic kidney disease; E11.22 Type 2 diabetes mellitus with diabetic chronic kidney disease; N18.2 Chronic kidney disease, stage 2 (mild); E87.6 Hypokalemia; E03.9 Hypothyroidism, unspecified; G47.33 Obstructive sleep apnea (adult) (pediatric); K74.60 Unspecified cirrhosis of liver; Z79.899 Other long term (current) drug therapy
CPT/HCPCS: 82947; A9270; C1726; J2704; J3010; J7120

== ENCOUNTER → 2022-11-04 | Outpatient (CLI) | payer MEDICARE, OTHER ==
[~2022-11-04] MED LIST changes: +CLON.5; +CYMBALTA30 M2 PO; +MYLANTA GAS MIN42 MG; +OLANZAPINE5 M1 PO
[2022-11-04 15:54] LABS: BASOPHILS ABSOLUTE AUTO 0.04 K/mm3 (0.00-0.23); BASOPHILS PERCENT AUTO 1 % (0-2); EOSINOPHILS ABSOLUTE AUTO 0.02 K/mm3 (0.00-0.68); EOSINOPHILS PERCENT AUTO 0 % (0-6); Hematocrit 42.2 % (33.0-51.0); Hemoglobin 15.4 g/dL (11.5-16.0); IMMATURE GRAN ABSOLUTE AUTO 0.02 K/mm3 (0.00-0.10); IMMATURE GRAN PERCENT AUTO 0 % (0-1); LYMPHOCYTES ABSOLUTE AUTO 2.53 K/mm3 (0.84-5.20); LYMPHOCYTES PERCENT AUTO 40 % (21-46); MONOCYTES ABSOLUTE AUTO 0.49 K/mm3 (0.16-1.47); MONOCYTES PERCENT AUTO 8 % (4-13); Mean Corpuscular HGB 36.4 pg (26.0-34.0); Mean Corpuscular HGB Conc 36.5 g/dL (31.5-36.5); Mean Corpuscular Volume 100 fL (80-100); Mean Platelet Volume 9.5 fL (9.1-12.4); NEUTROPHILS ABSOLUTE AUTO 3.26 K/mm3 (1.96-9.15); NEUTROPHILS PERCENT AUTO 51 % (41-73); Platelet Count 236 K/mm3 (150-400); RDW Coefficient Variation 15.9 % (11.7-14.2); Red Blood Cell Count 4.23 M/mm3 (3.80-5.20); White Blood Cell Count 6.36 K/mm3 (4.00-11.30)
[2022-11-04 16:09] LABS: Albumin, Blood 2.5 g/dL (3.4-5.0); Albumin/Globulin Ratio 0.7 (0.8-1.8); Bilirubin, Total 1.5 mg/dL (0.1-1.0); Bun/Creatinine Ratio 12.3 (12.0-20.0); Calcium, Blood 9.2 mg/dL (8.5-10.1); Creatinine, Blood 1.14 mg/dL (0.40-1.00); Globulin, Blood 3.8 g/dL (2.2-4.0); Potassium, Blood 3.2 mmol/L (3.5-5.5); Total Protein, Blood 6.3 g/dL (6.4-8.2)
== END ==
LOC: LAB SHORT 15:45
PROVIDERS: Internal Medicine
DX: E11.42 Type 2 diabetes mellitus with diabetic polyneuropathy (principal); E87.8 Other disorders of electrolyte and fluid balance, not elsewhere classified
CPT/HCPCS: 80053; 83036; 83735; 85025

== ENCOUNTER 2022-11-06 10:58 | Day surgery (SDC) | payer MEDICARE, OTHER ==
[~2022-11-06 10:58] MED LIST changes: -CYMBALTA30 M2 PO; -OLANZAPINE5 M1 PO
[2022-11-06] MEDS ORDERED: OLANZAPINE5 M1 PO (16:46)
[2022-11-06] MEDS ORDERED: CYMBALTA30 M2 PO (16:46)
== END 2022-11-06 17:53 | disposition home or self-care (01) ==
LOC: ATC 10:58
DX: E87.6 Hypokalemia (principal); E11.42 Type 2 diabetes mellitus with diabetic polyneuropathy; K21.9 Gastro-esophageal reflux disease without esophagitis; F31.9 Bipolar disorder, unspecified; I12.9 Hypertensive chronic kidney disease with stage 1 through stage 4 chronic kidney disease, or unspecified chronic kidney disease; N18.9 Chronic kidney disease, unspecified; F41.9 Anxiety disorder, unspecified
CPT/HCPCS: 96365; 96366; J2001; J3480; J7040

== ENCOUNTER 2022-11-09 16:36 | Emergency (ER) | payer MEDICARE, OTHER ==
[~2022-11-09] VITALS: Ht 177.8 cm; Wt 66.7 kg
[~2022-11-09 16:36] MED LIST changes: -CLON.5; +CLON.5 PO; +CYMBALTA30 M2 PO; -EUTHYROX88 MCG; +OLANZAPINE5 M1 PO; -PROM12.5S
[2022-11-09 16:54] LABS: BASOPHILS ABSOLUTE AUTO 0.04 K/mm3 (0.00-0.23); BASOPHILS PERCENT AUTO 0 % (0-2); EOSINOPHILS ABSOLUTE AUTO 0.03 K/mm3 (0.00-0.68); EOSINOPHILS PERCENT AUTO 0 % (0-6); Hematocrit 34.7 % (33.0-51.0); Hemoglobin 12.4 g/dL (11.5-16.0); IMMATURE GRAN ABSOLUTE AUTO 0.04 K/mm3 (0.00-0.10); IMMATURE GRAN PERCENT AUTO 0 % (0-1); LYMPHOCYTES ABSOLUTE AUTO 2.87 K/mm3 (0.84-5.20); LYMPHOCYTES PERCENT AUTO 28 % (21-46); MONOCYTES ABSOLUTE AUTO 0.86 K/mm3 (0.16-1.47); MONOCYTES PERCENT AUTO 9 % (4-13); Mean Corpuscular HGB Conc 35.7 g/dL (31.5-36.5); Mean Corpuscular Volume 104 fL (80-100); Mean Platelet Volume 9.7 fL (9.1-12.4); NEUTROPHILS ABSOLUTE AUTO 6.26 K/mm3 (1.96-9.15); NEUTROPHILS PERCENT AUTO 62 % (41-73); NRBC ABSOLUTE 0.03 K/mm3 (0.00-0.02); NRBC Auto 0.3 /100 WBC (0.0-0.2); Platelet Count 214 K/mm3 (150-400); RDW Coefficient Variation 16.9 % (11.7-14.2); RDW Standard Deviation 63.8 fL (35.1-46.3); Red Blood Cell Count 3.35 M/mm3 (3.80-5.20)
[2022-11-09 17:07] LABS: Source, Urine Voided
[2022-11-09 17:11] LABS: Appearance, Urine Hazy (Clear); Blood, Urine Neg (Neg); Color, Urine Amber (P-Yellow); Glucose Qualitative, Urine Neg (Neg); Ketones, Urine Neg (Neg); Leukocyte Esterase, Urine 2+ (Neg); Nitrite, Urine Neg (Neg); Protein, Urine 2+ (Neg); Urobilinogen, Urine 4+ (Normal)
[2022-11-09 17:13] LABS: Albumin/Globulin Ratio 0.6 (0.8-1.8); Bun/Creatinine Ratio 19.5 (12.0-20.0); Calcium, Blood 8.1 mg/dL (8.5-10.1); Creatinine, Blood 0.62 mg/dL (0.40-1.00); Globulin, Blood 3.3 g/dL (2.2-4.0); Potassium, Blood 3.5 mmol/L (3.5-5.5); Total Protein, Blood 5.3 g/dL (6.4-8.2)
[2022-11-09 17:17] LABS: Bilirubin, Urine 2+ (Neg)
[2022-11-09 17:19] LABS: Bacteria Many /hpf; Red Blood Cells, Urine 0-2 /hpf (0-2); Squamous Epithelial Cells Few /hpf (Few)
[2022-11-09] MEDS ORDERED: CEFD300 PO (18:37)
== END 2022-11-09 19:13 | disposition home or self-care (01) ==
LOC: ER 16:36
PROVIDERS: Emergency Medicine
DX: N39.0 Urinary tract infection, site not specified (principal); R11.10 Vomiting, unspecified; I10 Essential (primary) hypertension; J44.9 Chronic obstructive pulmonary disease, unspecified; E11.9 Type 2 diabetes mellitus without complications; Z88.2 Allergy status to sulfonamides; Z88.5 Allergy status to narcotic agent; Z79.899 Other long term (current) drug therapy; Z79.890 Hormone replacement therapy
CPT/HCPCS: 36415; 51701; 80053; 81001; 82140; 85025; 87077; 87086; 87186; 96365; 99285-25; J0696; J7030

== ENCOUNTER 2022-11-10 14:30 | Inpatient (IN) | payer MEDICARE, OTHER ==
[~2022-11-10] VITALS: Ht 152.4 cm; Wt 85.2 kg
[~2022-11-10 14:30] MED LIST changes: +CEFD300 PO
[2022-11-10 15:09] LABS: BASOPHILS ABSOLUTE AUTO 0.04 K/mm3 (0.00-0.23); BASOPHILS PERCENT AUTO 0 % (0-2); EOSINOPHILS ABSOLUTE AUTO 0.03 K/mm3 (0.00-0.68); EOSINOPHILS PERCENT AUTO 0 % (0-6); Hematocrit 39.3 % (33.0-51.0); Hemoglobin 13.8 g/dL (11.5-16.0); IMMATURE GRAN ABSOLUTE AUTO 0.05 K/mm3 (0.00-0.10); IMMATURE GRAN PERCENT AUTO 1 % (0-1); LYMPHOCYTES ABSOLUTE AUTO 2.61 K/mm3 (0.84-5.20); LYMPHOCYTES PERCENT AUTO 25 % (21-46); MONOCYTES ABSOLUTE AUTO 0.85 K/mm3 (0.16-1.47); MONOCYTES PERCENT AUTO 8 % (4-13); Mean Corpuscular HGB 36.9 pg (26.0-34.0); Mean Corpuscular HGB Conc 35.1 g/dL (31.5-36.5); Mean Corpuscular Volume 105 fL (80-100); Mean Platelet Volume 9.6 fL (9.1-12.4); NEUTROPHILS ABSOLUTE AUTO 6.73 K/mm3 (1.96-9.15); NEUTROPHILS PERCENT AUTO 65 % (41-73); NRBC ABSOLUTE 0.03 K/mm3 (0.00-0.02); NRBC Auto 0.3 /100 WBC (0.0-0.2); Platelet Count 237 K/mm3 (150-400); RDW Coefficient Variation 17.2 % (11.7-14.2); Red Blood Cell Count 3.74 M/mm3 (3.80-5.20); White Blood Cell Count 10.31 K/mm3 (4.00-11.30)
[2022-11-10 15:25] LABS: Albumin, Blood 2.2 g/dL (3.4-5.0); Albumin/Globulin Ratio 0.6 (0.8-1.8); Bilirubin, Total 2.2 mg/dL (0.1-1.0); Bun/Creatinine Ratio 21.3 (12.0-20.0); Calcium, Blood 8.5 mg/dL (8.5-10.1); Creatinine, Blood 0.52 mg/dL (0.40-1.00); Potassium, Blood 3.5 mmol/L (3.5-5.5); Total Protein, Blood 6.2 g/dL (6.4-8.2)
[2022-11-10 17:13] LABS: Source, Urine Straight Cath
[2022-11-10 17:18] LABS: Blood, Urine Neg (Neg); Color, Urine Amber (P-Yellow); Glucose Qualitative, Urine Neg (Neg); Ketones, Urine Neg (Neg); Leukocyte Esterase, Urine Neg (Neg); Nitrite, Urine Neg (Neg); Protein, Urine 1+ (Neg); Urobilinogen, Urine 3+ (Normal)
[2022-11-10 17:58] LABS: Bilirubin, Urine 1+ (Neg)
[2022-11-10 17:59] LABS: Appearance, Urine Hazy (Clear)
[2022-11-10 18:13] LABS: Bacteria Many /hpf; Hyaline Casts 0-2 /lpf (0-2); Mucus Light (0-Heavy); Red Blood Cells, Urine 0-2 /hpf (0-2); Squamous Epithelial Cells Rare /hpf (Few)
--- NOTE | 2022-11-10 19:57 | NUR ---
ADMIT NOTE- PT ADMITTED THROUGH THE ED ARRIVED ON MEDICAL FLOOR AT 182, ADMIT COMPLETED, PT SPOUSE AT THE BEDSIDE AND PROVIDED A WRITTEN MED LIST TO RECONCILE WITH. TWO RN SKIN CHECK PERFORMED PT HAS MULTIPLE BRUISES AND A TINY SKIN TEAR ON HER RIGHT FORE ARM, COVERED WITH A BANDAID. UPON ADMIT ASSESSMENT THE PT STATES SHE HAS NOT BEEN EATING FOOD UNLESS SHE HAS TO BECAUSE FOOD TASTES LIKE VOMIT SINCE HER LAST EGD WITH DILATION. NOTED THE PT TOUNG AND MOUTH IS COVERED IN THICK WHITE PATCHES THAT HAS THE APPEARANCE OF THRUSH. PASSED ON TO NIGHT RN SO MD CAN BE UPDATED. NO MENTION IN MD NOTE. PT STATES SHE HAS LOST NEARLY 50 POUNDS SINCE WITHOUT TRYING. PT IS IN BED, FULL TIME PARAMEDIC IS GOING TO PERFORM A LINNEN CHANGE AT THIS TIME THERE WAS A WATER SPILL AND THE LINNENS ARE WET. CALL LIGHT IN REACH, SPOUSE AT THE BEDSIDE, BEDSIDE REEPORT COMPLETED WITH NIGHT ZABRINA DIAZ. NO S&S OF DISTRESS AT THIS TIME.
--- NOTE | 2022-11-10 20:04 | NUR ---
DR BURNS NEEDS TO BE UPDATED- NOTED THE PT HAS A THICK WHITE COATING ON HER TOUNG AND THR ROOF OF HER MOUTH THAT HAS THE APPEARANCE OF THRUSH, SHE MAY BENNIFIT FROM SOME SWISH AND SWALLOW MEDS. ONCOMING RN AWARE, UPDATED IN BEDSIDE REPORT.
--- NOTE | 2022-11-10 23:41 | NUR ---
CRITICAL LAB: cH LACTIC ACID 2.5. HOSPITALIST DR CULVER REPORTS CONTINUE TO MONITOR. LAST LACTIC 2.4
--- NOTE | 2022-11-11 04:43 | NUR ---
SHIFT SUMMARY PATIENT HAD NO ACUTE CHANGES. AXOX 4 WITH SPOUSE PRESENT FOR THE FIRST FEW HOURS OF SHIFT AT BEDSIDE. ONE ASSIST W/FWW TO BSC. CBG 106. PIV REMAINS INTACT. LR INFUSING @ 75mL/HR. cH LATIC ACID 2.5 PER LAB AND HOSPITALIST DR CULVER REPORTS CONTINUE TO MONITOR. DENIES PAIN, SOB, AND N/V. SLEPT MOST OF THE SHIFT. CALL LIGHT IN REACH. BED IN LOWEST POSITION. WILL CONTINUE TO MONITOR UNTIL DAY SHIFT NURSE ASSUMES CARE.
[2022-11-11 05:00] LABS: BASOPHILS ABSOLUTE AUTO 0.03 K/mm3 (0.00-0.23); BASOPHILS PERCENT AUTO 0 % (0-2); EOSINOPHILS ABSOLUTE AUTO 0.07 K/mm3 (0.00-0.68); EOSINOPHILS PERCENT AUTO 1 % (0-6); Hematocrit 32.5 % (33.0-51.0); Hemoglobin 11.2 g/dL (11.5-16.0); IMMATURE GRAN ABSOLUTE AUTO 0.05 K/mm3 (0.00-0.10); IMMATURE GRAN PERCENT AUTO 1 % (0-1); LYMPHOCYTES ABSOLUTE AUTO 2.28 K/mm3 (0.84-5.20); LYMPHOCYTES PERCENT AUTO 21 % (21-46); MONOCYTES ABSOLUTE AUTO 0.94 K/mm3 (0.16-1.47); MONOCYTES PERCENT AUTO 9 % (4-13); Mean Corpuscular HGB 36.6 pg (26.0-34.0); Mean Corpuscular HGB Conc 34.5 g/dL (31.5-36.5); Mean Corpuscular Volume 106 fL (80-100); Mean Platelet Volume 9.5 fL (9.1-12.4); NEUTROPHILS ABSOLUTE AUTO 7.62 K/mm3 (1.96-9.15); NEUTROPHILS PERCENT AUTO 69 % (41-73); NRBC ABSOLUTE 0.03 K/mm3 (0.00-0.02); NRBC Auto 0.3 /100 WBC (0.0-0.2); Platelet Count 184 K/mm3 (150-400); RDW Coefficient Variation 17.2 % (11.7-14.2); RDW Standard Deviation 66.1 fL (35.1-46.3); Red Blood Cell Count 3.06 M/mm3 (3.80-5.20); White Blood Cell Count 10.99 K/mm3 (4.00-11.30)
[2022-11-11 05:25] LABS: Albumin, Blood 1.6 g/dL (3.4-5.0); Albumin/Globulin Ratio 0.5 (0.8-1.8); Bilirubin, Total 1.7 mg/dL (0.1-1.0); Bun/Creatinine Ratio 19.5 (12.0-20.0); Calcium, Blood 8.1 mg/dL (8.5-10.1); Creatinine, Blood 0.51 mg/dL (0.40-1.00); Globulin, Blood 3.5 g/dL (2.2-4.0); Potassium, Blood 3.2 mmol/L (3.5-5.5); Total Protein, Blood 5.1 g/dL (6.4-8.2)
--- NOTE | 2022-11-11 05:47 | NUR ---
PATIENT NAUSEOUS AFTER DRINKING WATER. HX OF NAUSEA AFTER PO INTAKE. HOSPITALIST DR FOREMAN ORDERED IV ZOFRAN 4 MG Q6 PRN FOR N/V. WCTM
--- NOTE | 2022-11-11 15:45 | NUR ---
Upon receiving a referral for spiritual care, I visited the patient. The patient's spouse, Fito is bedside. They both openly share about patient's long medical history and the complications moving forward. 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 She explains about the strength, hope and encouragement her connection to Joaquin has given her and how challenging medical circumstances tend to bring out great the best and worst in her. Fito is very supportive and attentive and engaged in the conversation. They explain their worries about what might be necessary to find answer and relief to her medical problems. I normalize their concerns, reinforce helpful attitudes and perspectives and provide therapeutic listening and prayer. Patient and Fito responded well and showed signs of reduced stress. I will continue to remain available to patient and family.
--- NOTE | 2022-11-11 17:58 | NUR ---
SHIFT SUMMARY: PT A&O X3. PT IS FORGETFUL OF PAST EVENTS. IN ROOM TO REMIND AND REORIENT. PLEASANT AND COOPERATIVE WITH CARE. RECEIVED cH VALUE LACTIC ACID OF 3.3. REPORTED TO DR. SIMONS AND DISTRIBUTION LEAD JOY. LR CHANGED TO 1/2NS @100/HR. PT WORKED WITH PHYSICAL THERAPY TODAY. PT IS VERY WEAK IN ALL EXTREMITIES. PT IS CURRENTLY ON BEDREST W/PUREWICK IN PLACE. PT STATED SEVERAL TIMES SHE FEELS SHE NEEDS TO URINATE BUT HAS NOT BEEN ABLE TO. BLADDER SCANNED PT WHICH SHOWED 134CC OF URINE IN BLADDER. ROCEPHIN GIVEN AT 1600 FOR UTI. PT STILL VERY NAUSEOUS AND DOES NOT HAVE APPETITE. PT ATE PROTEIN JELLO AT LUNCHTIME. CALL LIGHT IN REACH. BED IN LOWEST POSITION. WILL CONTINUE TO MONITOR.
[2022-11-12 05:26] LABS: BASOPHILS ABSOLUTE AUTO 0.03 K/mm3 (0.00-0.23); BASOPHILS PERCENT AUTO 0 % (0-2); EOSINOPHILS ABSOLUTE AUTO 0.09 K/mm3 (0.00-0.68); EOSINOPHILS PERCENT AUTO 1 % (0-6); Hematocrit 28.7 % (33.0-51.0); Hemoglobin 9.9 g/dL (11.5-16.0); IMMATURE GRAN ABSOLUTE AUTO 0.04 K/mm3 (0.00-0.10); IMMATURE GRAN PERCENT AUTO 1 % (0-1); LYMPHOCYTES ABSOLUTE AUTO 2.76 K/mm3 (0.84-5.20); LYMPHOCYTES PERCENT AUTO 36 % (21-46); MONOCYTES ABSOLUTE AUTO 0.58 K/mm3 (0.16-1.47); MONOCYTES PERCENT AUTO 8 % (4-13); Mean Corpuscular HGB 36.8 pg (26.0-34.0); Mean Corpuscular HGB Conc 34.5 g/dL (31.5-36.5); Mean Corpuscular Volume 107 fL (80-100); Mean Platelet Volume 10.3 fL (9.1-12.4); NEUTROPHILS ABSOLUTE AUTO 4.12 K/mm3 (1.96-9.15); NEUTROPHILS PERCENT AUTO 54 % (41-73); NRBC ABSOLUTE 0.06 K/mm3 (0.00-0.02); NRBC Auto 0.8 /100 WBC (0.0-0.2); Platelet Count 146 K/mm3 (150-400); RDW Coefficient Variation 17.1 % (11.7-14.2); RDW Standard Deviation 66.1 fL (35.1-46.3); Red Blood Cell Count 2.69 M/mm3 (3.80-5.20); White Blood Cell Count 7.62 K/mm3 (4.00-11.30)
--- NOTE | 2022-11-12 05:44 | NUR ---
Shift Summary Pt unable to void early in the shift and stated no voids since the previous morning. Performed bladder scan and got 690 mL. Per hospitalist pt was straight cath'd and 625 mL was drained. Pt was able to void on her own twice later in the shift. Pt is very weak, she has a difficult time handling a cup of water, bedrest at this time. Q2 turns and pillows under legs for comfort. She C/O R knee and back pain, given PRN tylenol per EMAR. Pt did hallucinate a black cat early in the shift, no further hallucinations after that. Pt AOx4, pleasant and cooperative, VSS. Slept through some of the night but had difficulty due to pain and discomfort.
[2022-11-12 07:34] LABS: Albumin, Blood 1.4 g/dL (3.4-5.0); Albumin/Globulin Ratio 0.4 (0.8-1.8); Bilirubin, Total 1.1 mg/dL (0.1-1.0); Bun/Creatinine Ratio 23.3 (12.0-20.0); Calcium, Blood 7.6 mg/dL (8.5-10.1); Creatinine, Blood 0.56 mg/dL (0.40-1.00); Globulin, Blood 3.4 g/dL (2.2-4.0); Magnesium, Blood 1.7 mg/dL (1.6-2.4); Phosphorus, Blood 1.3 mg/dL (2.5-4.9); Potassium, Blood 3.2 mmol/L (3.5-5.5); Total Protein, Blood 4.8 g/dL (6.4-8.2)
--- NOTE | 2022-11-12 12:45 | NUR ---
Upon receiving a request for spiritual care, I visit patient. She tells me that she received some challenging medical news this morning and was feeling deflatted. We talk about the information, her personal struggles and her jump from hope to no hope. We talk about what the physicians are actually saying and the new directions that actually do have specific goals and strategies. We explore sources of hope and dig a bit into her own spiritual beliefs. We move toward her inner strength and pull up some great reasons for hope and resilience. I provide therapeutic listening and prayer. Patient responds well and shows signs of increase in hope and rubi.
--- NOTE | 2022-11-12 16:00 | NUR ---
UNABLE TO PLACE PICC LINE IN L UPPER ARM. VEINS ARE VERY SMALL. SPOKE WITH NIKOLAS GERBER. ATTEMPTED 3 X'S.
--- NOTE | 2022-11-12 16:09 | NUR ---
Second spiritual care visit. Patient's spouse, Fito is in the lobby waiting as patient is undergoing a procedure. 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 We explore possible ideas for self-care and discuss the importance of it so he is able to sustain a high level of care for his . Fito responds well and and voices his appreciation for the visit and encouragement.
--- NOTE | 2022-11-12 17:25 | NUR ---
SHIFT SUMMARY: PT A&O X3-4. SOME FORGETFULNESS WITH OCCASIONAL VISUAL HALLUCINATIONS. PT LACTIC ACID DROPPED FROM 3.3 TO 2.6 FROM PREVIOUS SHIFT. CRITICAL CALLED TO DR. SIMONS AND SUBSTANCE ABUSE PREVENTION COORDINATOR NIGHAT. LABS DRAWN THIS AM WHICH SHOWED LOW POTASSIUM AND PHOSPHORUS. PT GIVEN IV POTASSIUM PHOSPHATE WELL IV MAGNESIUM SULFATE AND IV FOLIC ACID. PT HAS BEEN VERY UPSET THIS SHIFT KNOWING SHE HAS MANY PROBLEMS WITH HER AND "IT'S ONE THING AFTER ANOTHER." PT DOES NOT HAVE APPETITE. WOULD EAT ONE BITE OF EVERYTHING ON TRAY AND NOT WANT AGAIN. PICC LINE IN PLACE TO START TPN. CALL LIGHT IN REACH. BED IN LOWEST POSITION. WILL CONTINUE TO MONITOR.
[2022-11-12] MEDS ORDERED: Mirtazapine15 M1 SL (19:58)
[2022-11-12] MEDS ORDERED: POTCHL20ER PO (19:58)
[2022-11-12 21:27] LABS: Albumin, Blood 1.5 g/dL (3.4-5.0); Anion Gap 7 mmol/L (6-16); Blood Urea Nitrogen 13 mg/dL (8-24); CO2, Blood 23 mmol/L (21-32); Calcium, Blood 7.7 mg/dL (8.5-10.1); Chloride, Blood 108 mmol/L (98-108); Creatinine, Blood 0.52 mg/dL (0.40-1.00); Glomerular Filtration Rate 102 (60-); Glucose, Blood 105 mg/dL (70-99); Phosphorus, Blood 2.4 mg/dL (2.5-4.9); Potassium, Blood 3.7 mmol/L (3.5-5.5); Sodium, Blood 138 mmol/L (136-145)
[2022-11-13 04:46] LABS: BASOPHILS ABSOLUTE AUTO 0.05 K/mm3 (0.00-0.23); BASOPHILS PERCENT AUTO 1 % (0-2); EOSINOPHILS ABSOLUTE AUTO 0.08 K/mm3 (0.00-0.68); EOSINOPHILS PERCENT AUTO 1 % (0-6); Hematocrit 26.5 % (33.0-51.0); Hemoglobin 9.6 g/dL (11.5-16.0); IMMATURE GRAN ABSOLUTE AUTO 0.06 K/mm3 (0.00-0.10); IMMATURE GRAN PERCENT AUTO 1 % (0-1); LYMPHOCYTES ABSOLUTE AUTO 3.06 K/mm3 (0.84-5.20); LYMPHOCYTES PERCENT AUTO 48 % (21-46); MONOCYTES ABSOLUTE AUTO 0.44 K/mm3 (0.16-1.47); MONOCYTES PERCENT AUTO 7 % (4-13); Mean Corpuscular HGB 37.4 pg (26.0-34.0); Mean Corpuscular HGB Conc 36.2 g/dL (31.5-36.5); Mean Corpuscular Volume 103 fL (80-100); NEUTROPHILS ABSOLUTE AUTO 2.67 K/mm3 (1.96-9.15); NEUTROPHILS PERCENT AUTO 42 % (41-73); NRBC ABSOLUTE 0.12 K/mm3 (0.00-0.02); NRBC Auto 1.9 /100 WBC (0.0-0.2); RDW Coefficient Variation 16.8 % (11.7-14.2); RDW Standard Deviation 62.2 fL (35.1-46.3); Red Blood Cell Count 2.57 M/mm3 (3.80-5.20); White Blood Cell Count 6.36 K/mm3 (4.00-11.30)
[2022-11-13 05:01] LABS: Mean Platelet Volume 9.9 fL (9.1-12.4); Platelet Count 175 K/mm3 (150-400)
[2022-11-13 05:04] LABS: Albumin, Blood 1.5 g/dL (3.4-5.0); Albumin/Globulin Ratio 0.5 (0.8-1.8); Bilirubin, Total 0.8 mg/dL (0.1-1.0); Bun/Creatinine Ratio 27.6 (12.0-20.0); Calcium, Blood 7.4 mg/dL (8.5-10.1); Creatinine, Blood 0.54 mg/dL (0.40-1.00); Globulin, Blood 3.1 g/dL (2.2-4.0); Magnesium, Blood 2.2 mg/dL (1.6-2.4); Phosphorus, Blood 2.2 mg/dL (2.5-4.9); Potassium, Blood 3.9 mmol/L (3.5-5.5); Total Protein, Blood 4.6 g/dL (6.4-8.2)
--- NOTE | 2022-11-13 05:44 | NUR ---
Shift Summary Pt continent voids in bedpan, calls appropriatly. AOx4. Very weak, very little PO intake. She tried some vanilla yogurt this AM and enjoys the taste and seems to be tolerating it well. Rcving IV infusion of 1/2 NS @ 100 ml/hr. AOx4, no hallucinations, VSS, pleasant and cooperative.
--- NOTE | 2022-11-13 17:12 | NUR ---
SHIFT SUMMARY: PT A&O X4. PT PLEASANT AND COOPERATIVE WITH ALL CARE. PT RECEIVED ONE TIME BAG OF SODIUM PHOSPHATE. NS @100 AND CLINIMIX CURRENTLY RUNNING. PT RECEIVED POWERGLIDE IN LEFT UPPER ARM BY INSPECTOR CANNED FOOD RECONDITIONINGZABRINA DISLA. PT TOLERATED POWERGLIDE INSERTION WELL. D/C IV IN RAC. PT STATED IV WAS PAINFUL, SWOLLEN, AND RED. PT TO RECEIVE FAT EMULSION TOMORROW DAY SHIFT. PT ATE MORE FOOD TODAY THAN I HAVE SEEN IN PREVIOUS DAYS. PT HAS THE START OF PRESSURE ULCER ON SACRUM. PLACED SACRAL MEPILEX AND FLOATED PT ON PILLOWS. PT CURRENTLY RESTING. CALL LIGHT IN REACH. BED IN LOWEST POSITION. WILL CONTINUE TO MONITOR.
--- NOTE | 2022-11-14 06:00 | NUR ---
END OF SHIFT NURSING REPORT - PM Admitted following a ground level fall at home with UTI and elevated lactic acid. She is AOX4, clear lungs and vitals WNL. Bilateral LE edema -pitting +2. Skin pale and dry, with branch able redness to coccyx. She is AOX4, room air and declines ant pain or discomfort. States weakness and using bedpan for voiding. Clinimix E infusing at 42ml/hr and 1/2NS infusing at 100ml/hr.
[2022-11-14 06:08] LABS: Alanine Aminotransfer (ALT/SGP 19 U/L (12-78); Albumin, Blood 1.4 g/dL (3.4-5.0); Albumin/Globulin Ratio 0.4 (0.8-1.8); Alk Phos 82 U/L (50-136); Anion Gap 5 mmol/L (6-16); Aspartate Aminotrans (AST/SGOT 31 U/L (12-37); Bilirubin, Total 0.6 mg/dL (0.1-1.0); Blood Urea Nitrogen 16 mg/dL (8-24); Bun/Creatinine Ratio 34.3 (12.0-20.0); CO2, Blood 22 mmol/L (21-32); Calcium, Blood 7.4 mg/dL (8.5-10.1); Chloride, Blood 114 mmol/L (98-108); Creatinine, Blood 0.47 mg/dL (0.40-1.00); Globulin, Blood 3.2 g/dL (2.2-4.0); Glomerular Filtration Rate 104 (60-); Glucose, Blood 83 mg/dL (70-99); Magnesium, Blood 2.5 mg/dL (1.6-2.4); Phosphorus, Blood 3.1 mg/dL (2.5-4.9); Potassium, Blood 3.7 mmol/L (3.5-5.5); Sodium, Blood 141 mmol/L (136-145); Total Protein, Blood 4.6 g/dL (6.4-8.2); Triglycerides 205 mg/dL (30-160)
--- NOTE | 2022-11-14 16:09 | NUR ---
Patient is lying in bed and alert. Patient's spouse Fito is bedside. Patient is tearful about [place] I She talks about her fears of not coming back alive. We explore sources of hope and, with the help of Fito, review the facts of what the doctor actually said. We also talk about her fears concerning her Granddaughter Hugo and broke down what the issues were and how we could reframe some of those fears and sit healthily with others. I provide therapeutic listening, gentle school counselor and prayer. Patient displayed evidence of significant improvement in her mood and a reduction of stress. I will continue to remain available to patient and family.
--- NOTE | 2022-11-14 17:17 | NUR ---
SHIFT SUMMARY/TRANSFER PATIENT MEDICATED X2 FOR PAIN, PATIENT REPORTS MILD NAUSEA BUT DENIES MEDICATION. PATIENT DENIES SHORTNESS OF BREATH. PATIENT IS A 2P FOR REPOSITIONING AND PERSONAL CARE IN BED. PATIENT IS A LIFT FOR TRANSFERS. PATIENT WORKED WITH OT TODAY, WITH 2 MAX ASSIST, PATIENT WAS ABLE TO SIT ON SIDE OF BED. PATIENT HAD PICC LINE PLACED TODAY AND TPN STARTED. PER INSTRUCTIONS, TPN STARTED AT 45MLS/HR FOR 8HRS. WILL PASS ONTO NIGHTSHIFT TO INCREASE TO GOAL RATE OF 95MLS/HR AT 0100 IF PATIENT TOLERATES FEEDING. PATIENT AT BEDSIDE ENTIRE SHIFT. PATIENT ATE VERY LITTLE TODAY, BUT DRANK A DECENT AMOUNT. PATIENT IS VERY PLEASANT AND COOPERATIVE WITH CARE. PATIENT TRANSFERED TO ROOM 325. PT/OT REQUESTING PATIENT BE IN A LIFT ROOM TO HELP PATIENT MOBILIZE. RECLINER ALSO PLACED IN NEW ROOM. PATIENT INFORMED OF ROOM CHANGE AND AGREEABLE. REPORT GIVEN TO NKECHI MICHAEL RN. BELONGINGS SENT WITH PATIENT.
[2022-11-15 05:11] LABS: BASOPHILS ABSOLUTE AUTO 0.03 K/mm3 (0.00-0.23); BASOPHILS PERCENT AUTO 1 % (0-2); EOSINOPHILS ABSOLUTE AUTO 0.07 K/mm3 (0.00-0.68); EOSINOPHILS PERCENT AUTO 1 % (0-6); Hematocrit 25.4 % (33.0-51.0); Hemoglobin 8.6 g/dL (11.5-16.0); IMMATURE GRAN ABSOLUTE AUTO 0.05 K/mm3 (0.00-0.10); IMMATURE GRAN PERCENT AUTO 1 % (0-1); LYMPHOCYTES ABSOLUTE AUTO 3.15 K/mm3 (0.84-5.20); LYMPHOCYTES PERCENT AUTO 52 % (21-46); MONOCYTES ABSOLUTE AUTO 0.53 K/mm3 (0.16-1.47); MONOCYTES PERCENT AUTO 9 % (4-13); Mean Corpuscular HGB 36.4 pg (26.0-34.0); Mean Corpuscular HGB Conc 33.9 g/dL (31.5-36.5); Mean Platelet Volume 9.6 fL (9.1-12.4); NEUTROPHILS PERCENT AUTO 37 % (41-73); NRBC ABSOLUTE 0.07 K/mm3 (0.00-0.02); NRBC Auto 1.2 /100 WBC (0.0-0.2); Platelet Count 187 K/mm3 (150-400); RDW Coefficient Variation 16.8 % (11.7-14.2); RDW Standard Deviation 66.1 fL (35.1-46.3); Red Blood Cell Count 2.36 M/mm3 (3.80-5.20); White Blood Cell Count 6.03 K/mm3 (4.00-11.30)
[2022-11-15 05:15] LABS: Mean Corpuscular Volume 108 fL (80-100)
[2022-11-15 05:33] LABS: Magnesium, Blood 2.4 mg/dL (1.6-2.4)
[2022-11-15 05:34] LABS: Albumin, Blood 1.5 g/dL (3.4-5.0); Albumin/Globulin Ratio 0.5 (0.8-1.8); Bilirubin, Total 0.6 mg/dL (0.1-1.0); Bun/Creatinine Ratio 34.9 (12.0-20.0); Calcium, Blood 7.8 mg/dL (8.5-10.1); Creatinine, Blood 0.49 mg/dL (0.40-1.00); Globulin, Blood 3.2 g/dL (2.2-4.0); Phosphorus, Blood 2.8 mg/dL (2.5-4.9); Potassium, Blood 3.8 mmol/L (3.5-5.5); Total Protein, Blood 4.7 g/dL (6.4-8.2)
--- NOTE | 2022-11-15 06:35 | NUR ---
PATIENT ALERT AND ORIENTED, ROOM AIR, SR ON TELE, ATE DINNER, HAD BEDTIME SNACKS, REPLACED MAGNESIUM AND POTASSIUM ON 11/14 AFTER ADMISSION, CALLED THIS AM ABOUT 3.3 K+ AND 6.7 CALCIUM BUT HE STATED THAT HE WOULD HAVE TO CALL BACK BECAUSE HE WAS IN THE MIDDLE OF SOMETHING. NO EVENTS OVERNIGHT
--- NOTE | 2022-11-15 18:25 | NUR ---
SHIFT SUMMARY PT IS IN BED. AXO 3 CURRENTLY BUT CAN BECOME EASILY CONFUSED AND IS VERY FORGETFUL, REPEATING STORIES AND CQUESTIONS TO STAFF AND HSUBAND WHO IS AT BEDSIDE. SHE WAS ABLE TO EAT A BIT OF EACH MEAL AND IS FEELING "MORE LIKE MYSELF". PT ABLE TO STAND PIVOT TO THE CHAIR, BUT REQUIRED A LOT OF HELP TO STAND UP AND NEEDED TO BE LIFTED BACK INTO BED. PT ENCOURAGE TO CONTINEU TO WORK WITH PT. BED IN LOWEST POSITION AND CALL LIGHT IN REACH.
[2022-11-16 06:28] LABS: Albumin, Blood 1.5 g/dL (3.4-5.0); Anion Gap 0 mmol/L (6-16); Blood Urea Nitrogen 23 mg/dL (8-24); CO2, Blood 31 mmol/L (21-32); Calcium, Blood 8.1 mg/dL (8.5-10.1); Chloride, Blood 106 mmol/L (98-108); Creatinine, Blood 0.44 mg/dL (0.40-1.00); Glomerular Filtration Rate 106 (60-); Glucose, Blood 125 mg/dL (70-99); Magnesium, Blood 2.3 mg/dL (1.6-2.4); Phosphorus, Blood 1.8 mg/dL (2.5-4.9); Potassium, Blood 3.7 mmol/L (3.5-5.5); Sodium, Blood 137 mmol/L (136-145)
--- NOTE | 2022-11-16 06:34 | NUR ---
NO EVENTS OVERNIGHT. PATIENT SLEPT WELL. PUREWICK IN PLACE
[2022-11-16 13:55] LABS: BASOPHILS ABSOLUTE AUTO 0.01 K/mm3 (0.00-0.23); BASOPHILS PERCENT AUTO 0 % (0-2); EOSINOPHILS ABSOLUTE AUTO 0.05 K/mm3 (0.00-0.68); EOSINOPHILS PERCENT AUTO 1 % (0-6); Hematocrit 18.4 % (33.0-51.0); Hemoglobin 6.1 g/dL (11.5-16.0); IMMATURE GRAN ABSOLUTE AUTO 0.14 K/mm3 (0.00-0.10); IMMATURE GRAN PERCENT AUTO 2 % (0-1); LYMPHOCYTES ABSOLUTE AUTO 4.22 K/mm3 (0.84-5.20); LYMPHOCYTES PERCENT AUTO 57 % (21-46); MONOCYTES ABSOLUTE AUTO 0.54 K/mm3 (0.16-1.47); MONOCYTES PERCENT AUTO 7 % (4-13); Mean Corpuscular HGB 37.4 pg (26.0-34.0); Mean Corpuscular HGB Conc 33.2 g/dL (31.5-36.5); Mean Platelet Volume 10.2 fL (9.1-12.4); NEUTROPHILS ABSOLUTE AUTO 2.44 K/mm3 (1.96-9.15); NEUTROPHILS PERCENT AUTO 33 % (41-73); NRBC ABSOLUTE 0.41 K/mm3 (0.00-0.02); NRBC Auto 5.5 /100 WBC (0.0-0.2); Platelet Count 204 K/mm3 (150-400); RDW Coefficient Variation 16.8 % (11.7-14.2); RDW Standard Deviation 66.4 fL (35.1-46.3); Red Blood Cell Count 1.63 M/mm3 (3.80-5.20)
[2022-11-16 13:57] LABS: Mean Corpuscular Volume 113 fL (80-100)
--- NOTE | 2022-11-16 14:22 | NUR ---
TRANSFER NOTE PT HAS BEEN LETHARGIC AND PALE TODAY. AXO 2. ATE A SMALL PORTION OF BREAKFAST AND REFUSED LUNCH SAYING SHE FELT NAUSEOUS. BEGAN DRY HEAVING AROUND 1300 AND WHILE i WENT TO GET ZOFRAN THE PT BEGAN TO CVOMIT SMALL QUANTITIES OF BLOOD. WAS NOTIFIED AND CAME TO BEDSIDE. PTS BP WAS FOUND TO BE 53/48 WITH A MAP OF 50. DR GAVE VERBAL ORDERS OF LABS AND 2 UNITS RBS AND TRANSFERRED HER TO ICU RM 7. VERBAL REPORT GIVEN TO RNS AT BEDSIDE. BELONGINGS BROUGHT DOWN AND AT BEDSIDE.
--- NOTE | 2022-11-16 15:04 | NUR ---
Received report Pt being tranfered to ICU and family may benefit from supportive visit. Pt resting in bed on non rebreather receiving blood transfusion. Spouse at bedside. Offered supportive visit and reviewed plan of care with spouse. Continued supportive visit. He reports sons on their way in to offer more support. Spouse reports having established good rapport with animal shelter supervisor Mj. Spoke with Nursing Seam Rubbing Machine Operator Oni and requested animal shelter supervisor to visit. Palliative Care will remain available.
[2022-11-16 16:30] LABS: Hematocrit 30.9 % (33.0-51.0); Hemoglobin 10.2 g/dL (11.5-16.0); Mean Corpuscular HGB 30.8 pg (26.0-34.0); Mean Corpuscular Volume 93 fL (80-100); Mean Platelet Volume 9.9 fL (9.1-12.4); NRBC ABSOLUTE 1.21 K/mm3 (0.00-0.02); NRBC Auto 9.6 /100 WBC (0.0-0.2); Platelet Count 184 K/mm3 (150-400); RDW Coefficient Variation 23.1 % (11.7-14.2); Red Blood Cell Count 3.31 M/mm3 (3.80-5.20); White Blood Cell Count 12.55 K/mm3 (4.00-11.30)
--- NOTE | 2022-11-16 16:31 | NUR ---
Call back - Spoke initially with pt and son and daughter. Pt was in good spirits and displayed humor as a coping mechanism. She reports not knowing what's wrong with her, but daughter able to articulate the pt needs to stablize before they can do a scan. Janelle is most concerned about her GD, since she is unable to enter ICU (underage). Verbal prayer extended to those present. Spouse enters the ER shortly thereafter and rapport was built with him as he reflected on their lives together. Pt able to add to conversation as they spoke about travel while Fito was in the . Pastoral presence, words of encouragement, assuagement provided.
[2022-11-16 17:57] LABS: Hematocrit 30.6 % (33.0-51.0); Hemoglobin 10.2 g/dL (11.5-16.0)
[2022-11-16 18:02] LABS: BAND PERCENT MAN 5 % (0-8); BASOPHILS PERCENT MAN 0 % (0-2); EOSINOPHILS PERCENT MAN 0 % (0-6); LYMPHOCYTES ABSOLUTE MAN 5.64 K/mm3 (0.84-5.20); LYMPHOCYTES PERCENT MAN 45 % (21-46); METAMYELOCYTE ABSOLUTE MAN 0.12 K/mm3 (0.00-0.00); METAMYELOCYTE PERCENT MAN 1 % (0-0); MONOCYTES PERCENT MAN 12 % (4-13); MYELOCYTE ABSOLUTE MAN 0.25 K/mm3 (0.00-0.00); MYELOCYTE PERCENT MAN 2 % (0-0); NEUTROPHILS ABSOLUTE MAN 5.02 K/mm3 (1.96-9.15); SEG NEUTROPHILS PERCENT MAN 35 % (41-73); TOTAL CELLS COUNTED 100
--- NOTE | 2022-11-16 18:12 | NUR ---
ICU SUMMARY PT TRANSFERED FROM MEDICAL FLOOR AT 1400. PT COULD NOT ANSWER QUESTIONS APPROPRIATELY BUT WOULD MUMBLE "I'M COLD". COULD NOT STATE OR WHERE SHE WAS. EXTREMELY HYPOSTENSIVE. BOLUS RUNNING ON ARRIVAL. LEVOPHED ADDED AND BLOOD WAS STARTED WITH WARMER SOON AVAILABLE. BLOOD WAS GIVEN QUICKLY FOR EMERGENT SITUATION. 2 UNITS PRBC'S TOTAL. ONCE MAP WAS 65 OR GREATER PT WOKE UP AND WAS ANSWERING QUESTIONS APPROPRIATELY. DR. BUITRAGO IN TO SEE PT AND IS CALLING OR CREW IN FOR EGD. VASOPRESSIN AVAILABLE FOR PROCEDURE. RECHECKING H&H AND MONITORING FOR MENTAL STATUS CHANGES. AND FAMILY AT BEDSIDE.
--- NOTE | 2022-11-16 19:19 | NUR ---
11/16/221918 Kimi Garcia EQUIPMENT TO ICU7. DR SHAH HERE, ANESTHESIOLOGIST. IV FLUID BOLUS STARTED PER HER ORDER. O2 VIA POM MASK AT 15LPM INTACT AT THIS TIME AND THROUGHOUT PROCEDURE. MONITOR INTACT WITH CONTINUOUS PULSE OXIMETRY AND INTERMITTENT BP.
--- NOTE | 2022-11-16 19:20 | NUR ---
ASSUMED CARE. PT CURRENTLY GETTING PREPPED TO BE SCOPED BY DR. BUITRAGO. THE SCOPE TEAM IS IN THE ROOM WITH ALL THE EQUIPMENT AWAITING DR. BUITRAGO TO ARRIVE. PT IS AOX4, ABLE TO ANSWER ALL QUESTIONS APPROPRIATLY. DENIES ANY PAIN OR DISCOMFORT. PT GAVE BACK HISTORY THAT SHE GOT THE GASTRO-BYPASS SURGERY OVER 20 YEARS AGO. SHE DID HAVE SOME ISSUES OF VOMITING AFTERWARDS BUT NOTHING LIKE THE PAST YEAR. STATES SHE HAS HAD 14 SCOPES AT WHICH THEY FOUND HER TO HAVE A STRICTURE AND NEEDED IT TO BE STRETCHED. STATES SHE TYPICALLY VOMITS RIGHT AFTER EATING AND HAS NOT BEEN ABLE TO EAT MUCH. SHE STARTED TO VOMIT BLOOD YESTERDAY. ANESTHESIOLOGIST IS PRESENT AND HAS PLACED HER ON 2L MASK SATS >90%. LS CLEAR BILATERALLY BUT SHE DOES FEEL DYSPENIC WITH MOVEMENT. HR SINUS ON MONITOR RATE IN THE 80'S-90'S. BP CURRENTLY UNSTABLE NEEDING VASO AT 0.4MCQ AND LEVO AT 12 WHICH I INCREASED TO 13MCQ. PULSES STRONG. MILD EDEMA TO BLE AND BUE. SKIN IS PALE, COOL TO TOUCH. ABD DISTENDED, TENDER, BT HYPOACTIVE. HAS BEEN INCONTIENT PLAN IS TO PLACE FLAHERTY.
--- NOTE | 2022-11-16 19:40 | NUR ---
PT JUST HAD 80CC OF BRIGHT RED BLOODY MUCUS LIKE EMESIS WITNESS BY THE SCOPE TEAM. ORAL CARE PROVIDED, NEW EMESIS BAG GIVEN.
[2022-11-16 19:51] LABS: Hematocrit 28.1 % (33.0-51.0); Hemoglobin 9.2 g/dL (11.5-16.0)
--- NOTE | 2022-11-16 20:15 | NUR ---
BRONCOSCOPE STARTED AT 1999 AND COMPLETED AT 2011. SHE RECEIVED 2 OF VERSED AND 100MG OF KATAMINE. AFTER RECEIVING MEDS SHE WAS PLACED ON HER LEFT SIDE AND BLOCK WAS PLACED IN HER MOUTH AT WHICH SHE VOMITED AGAIN BRIGHT RED EMESIS, NEEDING SUCTION IMMEDIATLY BUT IT DID SOUND LIKE SHE POSSIBLY ASPIRATED SOME OF THE VOMIT. SATS REMAINED STABLE. SEE DR. BUITRAGO PROCEDURE NOTE.
--- NOTE | 2022-11-16 21:00 | NUR ---
DR. CARTER CONSULTED AFTER CONCERNS WERE BROUGHT UP FOR POSSIBLE AIRWAY COMPROMISE. WAS BROUGHT TO THE ROOM AND GIVEN SOME TIME WITH PRIOR TO PROCEDURE. DR. BUITRAGO AND DR. CARTER BOTH EXPLAINED SPOKE WITH AND INFORMED HIM OF NEEDING TRANSFER TO [facility] FOR FUTHER CARE. PT WAS GIVEN 20 OF ETOMIDATE AND ETT TUBE WAS PLACED AT 2041. ETT TUBE 7.5 AND 24 AT THE GUMS. HER JAW CLAMPED DOWN AND RT WAS HAVING TROUBLE GETTING THE BITE BLOCK IN PLACE, THEREFORE 2MG OF ATIVAN WAS GIVEN AT 2044 AND PROPOFOL WAS STARTED AT 25MCQ AT 2048. VENT SETTINGS ARE 15/450/8/35%. RESTRAINTS SOFT WRIST WERE INITIATED. PT TOLERATING VENT AND IS CALMING DOWN.
[2022-11-16 21:48] LABS: Hematocrit 25.5 % (33.0-51.0); Hemoglobin 8.6 g/dL (11.5-16.0)
--- NOTE | 2022-11-16 23:15 | NUR ---
PT TAKEN TO CT TOLERATED EXAM, NOW IS BACK IN ROOM, AT BEDSIDE. PT CHILDREN WILL BE ARRIVING.
[2022-11-16 23:54] LABS: Source, Urine Foley catheter
--- NOTE | 2022-11-17 00:07 | NUR ---
PT SPIKED A FEVER AROUND 2315 OF 100.8 AND HAS SLOWLY CLIMBED UP WITH IT CURRENTLY 101.6. SPOKE TO DR. WALKER GOT NEW ORDERS FOR CULTURES, ANTIBOTICS.
[2022-11-17 00:26] LABS: Appearance, Urine Hazy (Clear); Blood, Urine 1+ (Neg); Color, Urine Yellow (P-Yellow); Glucose Qualitative, Urine Neg (Neg); Ketones, Urine Neg (Neg); Leukocyte Esterase, Urine 3+ (Neg); Nitrite, Urine Neg (Neg); Protein, Urine 2+ (Neg); Urobilinogen, Urine NORM (Normal)
[2022-11-17 00:33] LABS: Bilirubin, Urine 1+ (Neg)
[2022-11-17 00:35] LABS: Bacteria Many /hpf; Red Blood Cells, Urine 0-2 /hpf (0-2); Squamous Epithelial Cells Few /hpf (Few); White Blood Cells, Urine 50-100 /hpf (0-5)
[2022-11-17 00:36] LABS: Hyaline Casts 0-2 /lpf (0-2); Mucus Light (0-Heavy)
--- NOTE | 2022-11-17 01:00 | NUR ---
FAMILY IS ALL AT THE BEDSIDE. PATIENT CONTINUES TO RIDE THE VENT WITH NO COMPLICATIONS. SHE HAS HAD 1 EPISODE OF EMESIS OF BRIGHT RED THAT CAME UP AROUND THE ETT TUBE. WAS ABLE TO SUCTION AND CLEAR HER MOUTH BUT IT WAS DIFFICULT SHE WAS CLAMPED DOWN ON THE BITE BLOCK. PROPOFOL INCREASED TO 30MCQ.
--- NOTE | 2022-11-17 01:43 | NUR ---
CALLED DR. BUITRAGO AND INFORMED OF CORTISOL LEVELS AND CT REPORT. STATES TO KEEP BLOOD PRESSURE AROUND 110 SBP AND IF HBG DROPS BELOW 7 TO GIVE 2 UNITS OF PRBC.
--- NOTE | 2022-11-17 04:15 | NUR ---
FAMILY WENT HOME FOR THE NIGHT, THEY PLAN ON BEING BACK IN AM.
[2022-11-17 04:52] LABS: Base Excess Venous -2.4 mmol/L; Bicarbonate Venous 21.3 mmol/L (24.0-30.0); PO2 Venous 31.3 mmHg (38-42)
[2022-11-17 04:53] LABS: pH Blood Venous 7.26 (7.34-7.37)
[2022-11-17 04:56] LABS: BASOPHILS ABSOLUTE AUTO 0.08 K/mm3 (0.00-0.23); BASOPHILS PERCENT AUTO 1 % (0-2); EOSINOPHILS ABSOLUTE AUTO 0.01 K/mm3 (0.00-0.68); EOSINOPHILS PERCENT AUTO 0 % (0-6); Hematocrit 29.3 % (33.0-51.0); Hemoglobin 9.8 g/dL (11.5-16.0); IMMATURE GRAN ABSOLUTE AUTO 0.79 K/mm3 (0.00-0.10); IMMATURE GRAN PERCENT AUTO 5 % (0-1); LYMPHOCYTES ABSOLUTE AUTO 3.48 K/mm3 (0.84-5.20); LYMPHOCYTES PERCENT AUTO 21 % (21-46); MONOCYTES PERCENT AUTO 6 % (4-13); Mean Corpuscular HGB 30.8 pg (26.0-34.0); Mean Corpuscular HGB Conc 33.4 g/dL (31.5-36.5); Mean Corpuscular Volume 92 fL (80-100); Mean Platelet Volume 11.1 fL (9.1-12.4); NEUTROPHILS ABSOLUTE AUTO 11.05 K/mm3 (1.96-9.15); NEUTROPHILS PERCENT AUTO 68 % (41-73); NRBC ABSOLUTE 2.39 K/mm3 (0.00-0.02); NRBC Auto 14.7 /100 WBC (0.0-0.2); Platelet Count 254 K/mm3 (150-400); RDW Coefficient Variation 25.5 % (11.7-14.2); RDW Standard Deviation 79.1 fL (35.1-46.3); Red Blood Cell Count 3.18 M/mm3 (3.80-5.20); White Blood Cell Count 16.31 K/mm3 (4.00-11.30)
[2022-11-17 05:15] LABS: Albumin, Blood 1.5 g/dL (3.4-5.0); Albumin/Globulin Ratio 0.5 (0.8-1.8); Bilirubin, Total 0.6 mg/dL (0.1-1.0); Calcium, Blood 7.3 mg/dL (8.5-10.1); Creatinine, Blood 0.64 mg/dL (0.40-1.00); Phosphorus, Blood 3.1 mg/dL (2.5-4.9); Potassium, Blood 5.4 mmol/L (3.5-5.5); Total Protein, Blood 4.5 g/dL (6.4-8.2)
--- NOTE | 2022-11-17 06:00 | NUR ---
SHIFT SUMMARY: PT CONTINUES TO BE SEDATED ON PROPOFOL. PROPOFOL PLACED ON SB TO SEE IF PATIENT WILL WAKE UP AND RESPOND. AT THIS TIME SHE GRIMACES TO PAINFUL STIMULI AND ATTEMPTS TO OPEN HER EYES TO VERBAL STIMULI. PROPOFOL WAS AT 20 MCQ WHEN PLACED ON HOLD. REMAINS ON VENT WITH SETTINGS OF 15/450/8/35%, ETT TUBE 7.5/ 24 AT THE GUMS. LS REMAIN CLEAR BUT THERE IS CONCERNS FOR POSSIBLE ASPIRATION DURING THE SCOPE PROCEDURE. SHE SPIKED A FEVER WITH TMAX 101.8 AT WHICH ICE BAGS AND TYLENOL WERE GIVEN. TMAX NOW 101.5. SINUS TACH ON MONITOR 110'S. VASO 0.4MCQ AND LEVO AT 15 MCQ, CONTINUES TO MAINTAIN BP WITH SBP IN THE 110'S. DID HAVE TO TAKE BP ON RIGHT CALF SHE HAD DEVELOPED THIRD SPACING OF 2+. BLOOD CULTURES WERE DRAWN AND UA PENDING. LACTIC ACID CRITICAL AT 3.8. ZOSYN 4.5 GRAMS STARTED ALONG WITH PROTONIX GTT. CPN IS ON HOLD DUE TO MINIMAL AMOUNT OF IV ACCESS. IV IN RIGHT ARM INFILTRATED. ABD DISTENDED HYPOACTIVE BT. TEMP FLAHERTY PLACED AND DRAINED 200CC OF YELLOW SEDIMENT URINE. SKIN IS PALE, COOL TO TOUGH. BRUISING TO BLE AND THERE IS REDNESS BETWEEN VAGINAL AREA AND ANUS. PLAN IS FOR TRANSFER TO [facility]. SHE HAS HAD ESTIMATE OF 150CC OF BRIGHT RED EMESIS.
--- NOTE | 2022-11-17 06:40 | NUR ---
DR. SIMONS IN TO SEE PATIENT, GAVE UPDATE OF EVENTS T/O THE NIGHT. DISCUSSED NEED FOR BETTER IV ACCESS AND POSSIBLE CENTRAL LINE.
[2022-11-17 09:22] LABS: Hematocrit 28.7 % (33.0-51.0); Hemoglobin 9.7 g/dL (11.5-16.0)
--- NOTE | 2022-11-17 14:30 | NUR ---
PT HAD MED RED CLOT BM. DR. CARTER MADE AWARE AND SHE WILL CONTACT DR. BUITRAGO TO INFORM HIM. TITRATING PRESSORS DOWN. H&H DRAWN.
[2022-11-17 15:07] LABS: Hematocrit 23.1 % (33.0-51.0); Hemoglobin 8.1 g/dL (11.5-16.0)
[2022-11-17 16:08] LABS: Hematocrit 22.5 % (33.0-51.0); Hemoglobin 7.8 g/dL (11.5-16.0)
--- NOTE | 2022-11-17 18:09 | NUR ---
SUMMARY PT INTUBATED AND SEDATED WITH PROPOFOL. PROPOFOL OFF THIS AM. PT WILL GRIMACE TO PAIN AND RAISES EYEBROWS TO VOICE. KEEPING PT SEDATED TODAY D/T RISK OF GI BLEEDING IF PT STARTS RETCHING OR SEVERE COUGHING. PT HAD ONE BM TODAY THAT WAS RED CLOTS, DR. BUITRAGO AWARE. H&H DROPPED TODAY AND ONE UNIT OF PRBC'S RUNNING NOW. TITRATING PRESSORS DOWN TODAY THOUGH. CENTRAL LINE PLACED TODAY FOR MORE IV ACCESS. RECHECKING H&H TONIGHT. AT BEDSIDE.
--- NOTE | 2022-11-17 19:20 | NUR ---
ASSUMED CARE PATIENT INTUBATED/SEDATED AT BEDSIDE. BLOOD TRANSFUSING. PROPOFOL, LEVO, TPN, PROTONIX INFUSING.
[2022-11-18 00:22] LABS: Hematocrit 30.1 % (33.0-51.0); Hemoglobin 10.8 g/dL (11.5-16.0)
[2022-11-18 04:21] LABS: BASOPHILS ABSOLUTE AUTO 0.04 K/mm3 (0.00-0.23); BASOPHILS PERCENT AUTO 0 % (0-2); EOSINOPHILS PERCENT AUTO 0 % (0-6); Hematocrit 27.5 % (33.0-51.0); Hemoglobin 9.8 g/dL (11.5-16.0); IMMATURE GRAN ABSOLUTE AUTO 0.42 K/mm3 (0.00-0.10); IMMATURE GRAN PERCENT AUTO 3 % (0-1); LYMPHOCYTES PERCENT AUTO 19 % (21-46); MONOCYTES ABSOLUTE AUTO 1.32 K/mm3 (0.16-1.47); MONOCYTES PERCENT AUTO 9 % (4-13); Mean Corpuscular HGB 31.3 pg (26.0-34.0); Mean Corpuscular HGB Conc 35.6 g/dL (31.5-36.5); Mean Corpuscular Volume 88 fL (80-100); Mean Platelet Volume 10.7 fL (9.1-12.4); NEUTROPHILS PERCENT AUTO 69 % (41-73); NRBC ABSOLUTE 0.47 K/mm3 (0.00-0.02); NRBC Auto 3.2 /100 WBC (0.0-0.2); Platelet Count 164 K/mm3 (150-400); RDW Coefficient Variation 20.5 % (11.7-14.2); RDW Standard Deviation 54.8 fL (35.1-46.3); Red Blood Cell Count 3.13 M/mm3 (3.80-5.20); White Blood Cell Count 14.88 K/mm3 (4.00-11.30)
[2022-11-18 04:43] LABS: Magnesium, Blood 2.1 mg/dL (1.6-2.4)
[2022-11-18 04:51] LABS: Bun/Creatinine Ratio 60.8 (12.0-20.0); Calcium, Blood 7.5 mg/dL (8.5-10.1); Creatinine, Blood 0.63 mg/dL (0.40-1.00); Phosphorus, Blood 0.9 mg/dL (2.5-4.9); Potassium, Blood 3.7 mmol/L (3.5-5.5)
--- NOTE | 2022-11-18 06:28 | NUR ---
PATIENT INTUBTATED/SEDATED OFF OF LEVO. X2 BLOODY/CLOTTED BOWEL MOVEMENTS. PHOS 0.9 REPLACEING WITH KPHOS PER ORDER.
--- NOTE | 2022-11-18 07:15 | NUR ---
ASSUMPTION OF CARE PT IS RECEIVING PROTONIX AND CPN. PROPOFOL AND LEVOPHED ON STANDBY. SHE REMAINS INTUBATED AND IS CURRENTLY ON SPONT. RR 14-18, TV 360S-550S. PT IS ABLE TO OPEN EYES TO VERBAL STIMULI, NOD/SHAKE HEAD. SHE MAKES SOME MOVEMENT WITH EXTREMITIES BUT NOT TO COMMAND. SHE DENIES PAIN AND IS TOLERATING SEDATION VACATION WELL. NRS ON MONITOR WITH RATE IN 80S, SBP 100S. BOWEL TONES ACTIVE, ABDOMEN SOFT. PT HAD LARGE DARK RED/BROWN LIQUID STOOL. RECTAL TUBE PLACED. SEE SHIFT ASSESSMENT.
--- NOTE | 2022-11-18 12:14 | NUR ---
EXTUBATION PT OPENS EYES TO VERBAL STIMULI AND TRACKS MOVEMENTS. SHE ANSWERS QUESTIONS BY NODDING/SHAKING HER HEAD. SHE DOES NOT FOLLOW COMMANDS TO SQUEEZE HANDS OR WIGGLE TOES, BUT DOES MAKE PURPOSEFUL MOVEMENTS WITH EXTREMITIES. FRONT OFFICE MEDICAL ASSISTANT AT BEDSIDE FOR EVAL AND PLAN TO EXTUBATE. 1214: RT AND THIS RN AT BEDSIDE TO EXTUBATE. PT TOLERATED WELL. SPO2 >94% ON RA. RR 13-20.
--- NOTE | 2022-11-18 13:46 | NUR ---
Spiritual care visit conducted. I provide encouragement and prayer while patient is on the vent. She looks me in the eyes but does not follow verbal commands. They are prepping pt for extubation as I leave the rm. I will continue to remain available to patient and family.
--- NOTE | 2022-11-18 18:37 | NUR ---
SHIFT SUMMARY PT IS RECEIVING PROTONIX AND TPN. SHE WAS EXTUBATED AT 1214. SINCE THEN SHE HAS BEEN ON RA SINCE THEN WITH SPO2 >95%. SHE REMAINS DROWSY, OCCASIONALLY ABLE TO NOD/SHAKE HEAD TO ANSWER QUESTIONS. SHE MAKES SMALL MOVEMENTS WITH HER UPPER EXTREMITIES BUT DOES NOT SQUEEZE HANDS OR FOLLOW COMMANDS. BOWEL TONES HYPOACTIVE, ABDOMEN SOFT. RECTAL TUBE PLACED THIS AM. VSS THROUGHOUT SHIFT. FAMILY MEMBERS AT BEDSIDE AND UPDATED.
[2022-11-19 04:08] LABS: Hemoglobin 8.3 g/dL (11.5-16.0); Mean Corpuscular HGB 31.6 pg (26.0-34.0); Mean Corpuscular HGB Conc 34.6 g/dL (31.5-36.5); Mean Corpuscular Volume 91 fL (80-100); NRBC ABSOLUTE 0.29 K/mm3 (0.00-0.02); NRBC Auto 2.2 /100 WBC (0.0-0.2); Platelet Count 147 K/mm3 (150-400); RDW Coefficient Variation 22.1 % (11.7-14.2); RDW Standard Deviation 59.4 fL (35.1-46.3); Red Blood Cell Count 2.63 M/mm3 (3.80-5.20); White Blood Cell Count 13.37 K/mm3 (4.00-11.30)
[2022-11-19 04:27] LABS: Bun/Creatinine Ratio 51.4 (12.0-20.0); Calcium, Blood 7.7 mg/dL (8.5-10.1); Creatinine, Blood 0.62 mg/dL (0.40-1.00); Phosphorus, Blood 2.1 mg/dL (2.5-4.9); Potassium, Blood 3.9 mmol/L (3.5-5.5)
--- NOTE | 2022-11-19 06:49 | NUR ---
PATIENT MENTATION IMPROVING OVERNIGHT. AOX1 AND MORE RESPONSIVE TO ANSWERING QUESTIONS AND FOLLOWING COMMANDS. MOVES EXTREMITIES X4. SR WITH STABLE BP. ROOM AIR. RECTAL TUBE IN PLACE WITH SMALL AMOUNT OR DARK RED STOOL. FLAHERTY WITH GOOD URINE OUTPUT.
--- NOTE | 2022-11-19 10:04 | NUR ---
ASSUMED CARE AT 0715 BEDSIDE REPORT REVIEVED FROM NOC RN, PT IS A/O X2, APPEARS TO BE RESTING COMFORTABLY, RECTAL TUBE IN PLACE DRAINING MAROON STOOL, SOME STOOL LEAKING AROUND TUBE. HGB DROPPED THIS AM, DR. WYATT AWARE, WILL RECHECK H/H LATER TODAY PER MD. ON ROOM AIR, O2 SAT > 95%, HR AND BP STABLE. PT DENIES PAIN/DISCOMFORT. RN TO CONTINUE TO FOLLOW.
[2022-11-19 13:08] LABS: Hematocrit 24.1 % (33.0-51.0); Hemoglobin 8.1 g/dL (11.5-16.0)
--- NOTE | 2022-11-19 14:52 | NUR ---
SHIFT SUMMARY REPORT GIVEN TO ZABRINA CABALLERO. NEURO CONTINUING TO IMPROVE, ORIENTED X2, CONSISTENTLY FOLLOWING COMMANDS. SR, BP WNL. ROOM AIR, LUNGS CTA, DIMISHED BASES. DENIES NAUSEA, NO VOMITING. RECTAL TUBE REMAINS IN PLACE, DRAINING MAROON LIQUID STOOL, NO LEAKING NOTED AROUND TUBE. REPOSITIONED EVERY 2 HOURS AND PRN. FLAHERTY PATENT AND DRAINING CLEAR YELLOW URINE, DECREASED OUTPUT. SKIN INTACT. PT PICKING AT RIGHT IJ DRESSING, REINFORCED. SKIN AROUND DRESSING IRRITATED DUE TO MULTIPLE DRESSING CHANGES. H/H SENT AT 1300, RESULTS NEARLY THE SAME PREVIOUS. REPEAT H/H ORDERED FOR THIS EVENING. AT BEDSIDE, UPDATED ON CURRENT CONDITION AND POC. PT BEING FOLLOWED BY EFM MD DR. BURNS AND DR. WYATT.
--- NOTE | 2022-11-19 15:06 | NUR ---
ASSUMED CARE: REPORT RECEIVED FROM JARAD Hand RN. ASSUMED CARE OF THIS PT AT APPROX 1500. PT APPEARS COMFORTABLE & IS RESTING QUIETLY AT THIS TIME. FAMILY AT BEDSIDE.
--- NOTE | 2022-11-19 15:36 | NUR ---
Spiritual care visit conducted. Patient is lying in bed and alert. She talks in small sentences but is fully engaged in the conversation. Patient's spouse, Fito is bedside and we have several moments in which the patient smiles and even jokes around alittle. We talk about their family, their funny hazel-names for all their kids and grandkids and the rubi the family brings to them. THey also share about their Taoism anup and how they continue to gain strength from it. I provide levity, healthy distracting conversation and prayer. Patient and Fito respond well and show signs of uplifted spirits. I will continue to remain available to patient and family.
--- NOTE | 2022-11-19 17:20 | NUR ---
DR BUITRAGO: PROVIDER AT BEDSIDE TO EVAL PT THIS EVENING. INFORMED HIM OF PT's MAROON LIQUID STL OUTPUT & HE IS AWARE OF PT's H&H LEVELS TRENDING DOWN SINCE YESTERDAY. HE WOULD LIKE TO CONTINUE TRENDING LABS & OBSERVE PT FOR FURTHER BLEEDING. HE WOULD LIKE GAS ENGINE REPAIRER TO CHANGE PT's RECTAL TUBE BAG IN AM WHEN COMPLETING I&Os SO THAT HE MAY VISUALIZE THE STL OUTPUT FOR THE DAY ONLY WHEN EVALUATING THE PT TOMORROW EVENING. NO OTHER CHANGES AT THIS TIME.
--- NOTE | 2022-11-19 17:48 | NUR ---
SHIFT SUMMARY: NO ACUTE CHANGES SINCE ASSUMPTION OF CARE. PT IS SPEAKING MORE THIS EVENING & IS MORE CLEARLY ABLE TO EXPRESS NEEDS. SHE DOES OCCASIONALLY FIDGET & PULL AT LINES/ TUBES, IS FAIRLY REDIRECTABLE. SHE HAS C/O HEADACHE THAT IS RESOLVED W/ FENTANYL PER EMAR. PT ON RA W/ O2 SATS > 95% ON AVG, OCCASIONAL DRY COUGH NOTED. MONITOR SHOWS SR W/ HR 70s, BP STABLE. PT NPO R/T AMS & POSSIBLE GI BLEEDING. RECTAL TUBE IN PLACE, DRAINING MAROON COLORED, LIQUID STLS, APPROX 75 ML OUTPUT NOTED THIS SHIFT. FLAHERTY PATENT/ DRAINING DARK YELLOW URINE W/ POOR OUTPUT. THIS HAS BEEN DISCUSSED W/ DR WYATT THIS EVENING & HE WOULD LIKE TO CONTINUE MONITORING THE PT IS RECEIVING ADEQUATE FLUID INTAKE VIA IV INFUSIONS. SKIN CONDITION OVERALL FRAGILE, ECCHYMOTIC. Q2H REPOSITIONING TO MAINTAIN SKIN INTEGRITY. WILL CONTINUE TO MONITOR & REPORT OFF TO ONCOMING RN.
[2022-11-19 21:07] LABS: Hematocrit 25.1 % (33.0-51.0); Hemoglobin 8.5 g/dL (11.5-16.0)
--- NOTE | 2022-11-19 21:31 | NUR ---
ASSUMED CARE. PT IS ALERT, ABLE TO STATE SHE IS IN PAIN WHEN PALPATING STOMACH BUT WILL NOT STATE NAME OR WHO HER IS WHEN ASKED. SHE JUST HAS A BLANK LOOK ON HER FACE. SHE HAS ONLY STATED A FEW WORDS. DOES FOLLOW DIRECTION WHEN ASKED. VORTEX OPERATOR ARE UNEQUAL WITH LEFT GREATER THAN RIGHT. BILATERAL FEET FLEXTION/EXTENTION EQUAL. VERY WEAK WITH SLOW MOVEMENTS. LS EXP. WHEEZES IN UPPER LOBES, DIM IN BASES. SATS IN HIGH 90'S ON RA. SINUS ON MONITOR. DENIES ANY CHEST PAIN. ABD SOFT TENDER TO PALPITATION MID SECTION. RECTAL TUBE WITH MARROON STOOL, THICK. LINEN CHANGE AND PARTIAL BATH GIVEN DUE TO LEAKAGE OF TUBE. TENDER ON BUTTOCKS WHEN CLEANSING, NO BREAKDOWN. CATH PATENT AND DRAINING CLEAR YELLOW. EDEMA NOTED TO BLE AND BUE. PROTONIX, CPN AND NS INFUSING. WAS AT BEDSIDE BUT NOW HAS LEFT FOR THE EVENING.
--- NOTE | 2022-11-19 23:39 | NUR ---
HEARD NEFTALI MOANING AND WHAT SOUNDED LIKE CRYING. WHEN IN ROOM, SHE DENIED PAIN AT FIRST THEN SHE POINTED TO HER STOMACH HURTING. GAVE FENTANYL FOR PAIN. MIDNIGHT MEDS GIVEN. DENIED NAUSEA. CONTINUES TO HAVE MARROON STOOL IN RECTAL BAG.
[2022-11-20 03:40] LABS: Hematocrit 25.2 % (33.0-51.0); Hemoglobin 8.5 g/dL (11.5-16.0); Mean Corpuscular HGB 31.8 pg (26.0-34.0); Mean Corpuscular HGB Conc 33.7 g/dL (31.5-36.5); Mean Corpuscular Volume 94 fL (80-100); Mean Platelet Volume 10.9 fL (9.1-12.4); NRBC ABSOLUTE 0.28 K/mm3 (0.00-0.02); NRBC Auto 2.5 /100 WBC (0.0-0.2); Platelet Count 150 K/mm3 (150-400); RDW Coefficient Variation 23.5 % (11.7-14.2); RDW Standard Deviation 59.7 fL (35.1-46.3); Red Blood Cell Count 2.67 M/mm3 (3.80-5.20); White Blood Cell Count 11.29 K/mm3 (4.00-11.30)
[2022-11-20 04:03] LABS: Anion Gap 6 mmol/L (6-16); Blood Urea Nitrogen 31 mg/dL (8-24); CO2, Blood 27 mmol/L (21-32); Chloride, Blood 109 mmol/L (98-108); Glomerular Filtration Rate 95 (60-); Glucose, Blood 163 mg/dL (70-99); Phosphorus, Blood 4.2 mg/dL (2.5-4.9); Potassium, Blood 4.3 mmol/L (3.5-5.5); Sodium, Blood 142 mmol/L (136-145); Triglycerides 198 mg/dL (30-160)
--- NOTE | 2022-11-20 06:36 | NUR ---
SHIFT SUMMARY: AOX1, SPEAKS VERY LITTLE WORDS, 1-2 PHRASES AT A TIME. WILL STATE IF SHE IS IN PAIN OR NEED OF PAIN MEDS BUT HAS DIFFICULTY ANSWERING ORIENTATION QUESTIONS. LS DID HAVE EXP WHEEZES AT START OF SHIFT THEN CLEARED UP MY MIDNIGHT. COUGH OCCATIONAL MOIST NON-PRODUCTIVE. HAS REMAINED SINUS WITH RATE IN THE 80'S. PAIN IS BACK AND IN THE EPIGASTRIC REGION OF THE ABD, TENDER TO PALPATION, NO NAUSEA OR VOMITING. RECTAL TUBE WITH 275 OF MARROON COFFEE GROUNDS. FLAHERTY OUTPUT 300 YELLOW CLEAR. CONTINUES ON PROTONIX GTT, CPN AT 55ML/HR, NS @ TKO. SKIN PALE WITH SCATTERED BRUISES THAT ARE HEALING. VS HAVE REMAINED STABLE. HBG THIS AM 8.5 AND HOLDING.
--- NOTE | 2022-11-20 08:04 | NUR ---
CARE OF PT ASSUMED AT 0700. PT AWAKE, ORIENTED ONLY TO SELF. VERY SLOW TO RESPOND. FOLLOWS SIMPLE COMMANDS BUT AGAIN VERY SLOW TO RESPOND. WEAK, ABLE TO LIFT ARMS TO HEAD, ABLE TO MOVE LEGS. PROTONIX GTT INFUSING, CPN INFUSING. DARK MAROON OUTPUT FROM RECTAL TUBE, BP STABLE, HBG 8.5. PT GIVES BLANK STARE WHEN ASKED IF SHE'S HAVING PAIN, ABD DOES NOT APPEAR TENDER WITH PALP. PLAN OOB TO CHAIR USING LIFT.
--- NOTE | 2022-11-20 09:30 | NUR ---
CARE OF PT GIVEN TO JEROME GERBER
--- NOTE | 2022-11-20 13:21 | NUR ---
ASSUMED CARE OF PT AT 0930. PT IS A/O TO PERSON. SLOW TO RESPOND BUT WILL FOLLOW SIMPLE COMMANDS TO MOVE ARMS. GRIMACES AT TIMES BUT DENIES PAIN. NO SOB OR N/V. HAS RECTAL TUBE THAT HAS LIQUID MAROON STOOL. VSS. NO SIGN OF DISTRESS.
--- NOTE | 2022-11-20 16:16 | NUR ---
Spiritual care visit conducted. Patient is more alert and conversive today. Patient's spouse, Fito is bedside and continues to be very supportive. We talk about her progress, her concerns and what is happening with the family. I provide therapeutic listening, pastoral auto travel counselor and prayer. I cut my visit short as they are anxious to her what their doctor has to say. He is waiting patiently outside the . They responded well to the interventions and showed signs of being uplifted. I will continue to remain available to patient and family.
--- NOTE | 2022-11-20 18:01 | NUR ---
SUMMARY PT A/O TO PERSON. VERY SLOW TO RESPOND BUT WILL FOLLOW SIMPLE COMMANDS WITH HANDS. MORE INTERACTIVE NOW, WORKED WITH PHYSICAL THERAPY AND OT. STILL HAVING MAROON LIQUID STOOL. H&H STAYED THE SAME TODAY AND BP STABLE. DR. BUITRAGO WILL EVAL IN AM TO SEE IF PT NEEDS ANOTHER EGD. NO SIGN OF DISTRESS.
--- NOTE | 2022-11-20 20:59 | NUR ---
ASSUMED CARE. ALERT AND SAYS FEW WORDS BUT IS COMPERHENDING THE CONVERSATION. SHE DOES USE GESTURES MOST OF THE TIME. LS WITH EXP WHEEZERS IN UPPER LOBES, ON RA, NO COUGH AT THIS TIME. REST OF LUNGS ARE CLEAR. HR SINUS. FAMILY WAS AT BEDSIDE TILL 30 MINUTES AGO WHEN THEY LEFT. LINEN CHANGED, RECTAL TUBE LEAKING SLIGHTLY. RECTAL TUBE WITH MARROON TO BROWN LIQUID STOOL. SHE DENIES PAIN AT THIS TIME. LICENSED MORTICIAN IN THE MID ABD. FLAHERTY PATENT AND DRAINING. REPOSITIONED ON SIDE, CALL LIGHT IS IN REACH.
--- NOTE | 2022-11-21 01:19 | NUR ---
NEFTALI IS SOB AND SATS DROPPED TO 85-86%, REPLACED PROP WITH SAME RESULTS. LS EXP WHEEZES AND TIGHT, LOWER LEFT IS DIMINISHED. PLACED ON 2L NC. GOT ORDER FOR BD PROTOCOL, RT CALLED AND IS IN ROOM GIVING BREATHING TREATMENT.
--- NOTE | 2022-11-21 01:38 | NUR ---
NEFTALI HAS SMALL RUN OF TACHYCARDIA AFTER THE BREATHING TREATMENT WITH RATE OF 150'S. SHE DID NOT SUSTAIN. SHE DOES STATE SHE IS ABLE TO BREATH BETTER.
[2022-11-21 04:03] LABS: BASOPHILS ABSOLUTE AUTO 0.02 K/mm3 (0.00-0.23); BASOPHILS PERCENT AUTO 0 % (0-2); EOSINOPHILS ABSOLUTE AUTO 0.11 K/mm3 (0.00-0.68); EOSINOPHILS PERCENT AUTO 1 % (0-6); Hematocrit 26.9 % (33.0-51.0); Hemoglobin 8.8 g/dL (11.5-16.0); IMMATURE GRAN ABSOLUTE AUTO 0.16 K/mm3 (0.00-0.10); IMMATURE GRAN PERCENT AUTO 1 % (0-1); LYMPHOCYTES ABSOLUTE AUTO 3.78 K/mm3 (0.84-5.20); LYMPHOCYTES PERCENT AUTO 28 % (21-46); MONOCYTES ABSOLUTE AUTO 0.89 K/mm3 (0.16-1.47); MONOCYTES PERCENT AUTO 7 % (4-13); Mean Corpuscular HGB Conc 32.7 g/dL (31.5-36.5); Mean Corpuscular Volume 98 fL (80-100); Mean Platelet Volume 10.5 fL (9.1-12.4); NEUTROPHILS ABSOLUTE AUTO 8.78 K/mm3 (1.96-9.15); NEUTROPHILS PERCENT AUTO 64 % (41-73); NRBC ABSOLUTE 0.14 K/mm3 (0.00-0.02); Platelet Count 168 K/mm3 (150-400); RDW Coefficient Variation 25.2 % (11.7-14.2); RDW Standard Deviation 65.4 fL (35.1-46.3); Red Blood Cell Count 2.75 M/mm3 (3.80-5.20); White Blood Cell Count 13.74 K/mm3 (4.00-11.30)
[2022-11-21 04:27] LABS: Alanine Aminotransfer (ALT/SGP 78 U/L (12-78); Albumin/Globulin Ratio 0.7 (0.8-1.8); Alk Phos 50 U/L (50-136); Anion Gap 2 mmol/L (6-16); Aspartate Aminotrans (AST/SGOT 88 U/L (12-37); Bilirubin, Total 0.6 mg/dL (0.1-1.0); Blood Urea Nitrogen 34 mg/dL (8-24); Bun/Creatinine Ratio 49.4 (12.0-20.0); CO2, Blood 29 mmol/L (21-32); Chloride, Blood 110 mmol/L (98-108); Creatinine, Blood 0.69 mg/dL (0.40-1.00); Globulin, Blood 2.7 g/dL (2.2-4.0); Glomerular Filtration Rate 95 (60-); Glucose, Blood 135 mg/dL (70-99); Potassium, Blood 3.8 mmol/L (3.5-5.5); Sodium, Blood 141 mmol/L (136-145); Total Protein, Blood 4.7 g/dL (6.4-8.2); Triglycerides 264 mg/dL (30-160)
--- NOTE | 2022-11-21 05:03 | NUR ---
SHIFT SUMMARY: PT MORE ALERT AND TALKATIVE AT TIMES. DENIED PAIN MOST OF SHIFT. WHEN HURTING SHE REFUSED TO HAVE PAIN MEDS. REPOSITIONED FOR COMFORT. LS WITH EXP WHEEZES, DROP IN SATS TO 85%. C/O SOB. O2 PLACED, BD PROTOCOL ORDERED. AFTER NEB TREATMENT WHEEZES WERE GONE AND O2 WAS ABLE TO COME OFF. CONTINUES TO HAVE NON-PRODUCTIVE COUGH. VERY STIFF MOVEMENTS THIS SHIFT, ROM SEBAS SEVERAL TIMES T/O NIGHT. FLAHERTY OUTPUT 300. RECTAL TUBE COFFEE GROUNDS MARROON ONLY 25CC OUTPUT NOT INCLUDING WHAT IS IN TUBING. LEAKED ONLY ONCE. VS REMAINED STABLE EXCEPT FOR ABOVE O2 SATS. TENDERNESS IN ABDOMIN IMPROVED. CONTINUES ON PROTONIX GTT, TKO NS, AND CPN.
--- NOTE | 2022-11-21 14:30 | NUR ---
Spiritual care visit conducted. Patient is sleeping and Fito is bedside. Fito expresses the challenges he is having due to patient's mental status. He talks about the exhaustion he is feeling and the guilt he has for even thinking of himself. When the patient wakes up, I talk with her about how much Fito is here for her and how so many patient's have no one by there side. She gets tearful and reaches out to sqeeze his hand and nods in gratitude. I listen empathically, encourage self-care, and provide gentle program counselor and prayer. Fito responds well and shows signs of being encouraged in his quest to be there for his spouse.
--- NOTE | 2022-11-21 18:27 | NUR ---
SUMMARY PT IS DROWSY TODAY. OOB TO CHAIR FOR ABOUT 2 HOURS USING THE LIFT. PT IS NOT INTERACTIVE TODAY. WILL MOVE UPPER EXTREMITIES AND RUN HANDS THROUGH HER HAIR. OPENS EYE'S ON COMMAND. LS WHEEZY THIS AFTERNOON AND BREATHING TX GIVEN. OUTPUT FROM RECTAL TUBE IS DARK BROWN/BLACK NOW. DR. BUITRAGO ROUNDED THIS EVENING AND IS AWARE OF OUTPUT. NO OTHER CHANGES. AND DAUGHTER AT BEDSIDE.
--- NOTE | 2022-11-21 20:00 | NUR ---
ASSUMED CARE PT IS ALERT AND ORIENTED TO SELF. SPO2 >92% ON RA; MAP >65. PT HAS C/O OF SOB PREVIOUS SHIFT W/ X-RAY ORDERED. PT CONTINUES TO HAVE MILD SOB, BUT NO INCREASE WOB NOTED. SMALL CRACKLES NOTED IN LEFT LUNG BASES. NO C/O OF CP OR NAUSEA. PT IS NOT VERY VERBAL AND MOUTHS SINGLE WORD SENTENCES. WHEN ASKED IF SHE WAS IN PAIN D/T HER GRIMACING PT NODDED HEAD YES AND POINTED AT HEAD AND STOMACH. PT FOLLOWS COMMANDS APPROPRIATELY, BUT REQUIRES SOME EXTRA PROMPTING. BILATERAL SOUNDSCRIBER MECHANIC STRENGTH IS EQUAL, PERLLA, AND NO DRIFTING OF TONGUE. FAMILY AT BEDSIDE AND VERY INTERESTED IN CARE, EDUCATION PERFORMED ON EACH INTERVENTION BEING DONE. FLAHERTY CATHETER AND RECTAL TUBE PATENT AND DRAINING TO GRAVITY.
--- NOTE | 2022-11-22 03:19 | NUR ---
UPDATE WHILE TALKING W/ PT DURING AM ASSESSMENT, PT INFORMED THIS RN THAT SHE SEE'S SOMETHING OUTSIDE HER DOOR. WHEN ASKED WHAT SHE WAS SEEING SHE JUST GESTURED W/ HER THUMB/INDEX FINGER (I.E., SOMETHING SMALL). NO OTHER NEURO CHANGES NOTED AT THIS TIME.
[2022-11-22 03:59] LABS: BASOPHILS ABSOLUTE AUTO 0.01 K/mm3 (0.00-0.23); BASOPHILS PERCENT AUTO 0 % (0-2); EOSINOPHILS ABSOLUTE AUTO 0.02 K/mm3 (0.00-0.68); EOSINOPHILS PERCENT AUTO 0 % (0-6); Hematocrit 25.1 % (33.0-51.0); Hemoglobin 8.1 g/dL (11.5-16.0); IMMATURE GRAN PERCENT AUTO 1 % (0-1); LYMPHOCYTES ABSOLUTE AUTO 1.43 K/mm3 (0.84-5.20); LYMPHOCYTES PERCENT AUTO 17 % (21-46); MONOCYTES ABSOLUTE AUTO 0.34 K/mm3 (0.16-1.47); MONOCYTES PERCENT AUTO 4 % (4-13); Mean Corpuscular HGB 32.7 pg (26.0-34.0); Mean Corpuscular HGB Conc 32.3 g/dL (31.5-36.5); Mean Corpuscular Volume 101 fL (80-100); Mean Platelet Volume 10.4 fL (9.1-12.4); NEUTROPHILS ABSOLUTE AUTO 6.49 K/mm3 (1.96-9.15); NEUTROPHILS PERCENT AUTO 77 % (41-73); NRBC ABSOLUTE 0.05 K/mm3 (0.00-0.02); NRBC Auto 0.6 /100 WBC (0.0-0.2); Platelet Count 176 K/mm3 (150-400); RDW Coefficient Variation 25.3 % (11.7-14.2); RDW Standard Deviation 89.5 fL (35.1-46.3); Red Blood Cell Count 2.48 M/mm3 (3.80-5.20); White Blood Cell Count 8.39 K/mm3 (4.00-11.30)
[2022-11-22 04:15] LABS: Bun/Creatinine Ratio 45.3 (12.0-20.0); Calcium, Blood 7.7 mg/dL (8.5-10.1); Creatinine, Blood 0.62 mg/dL (0.40-1.00); Potassium, Blood 3.7 mmol/L (3.5-5.5)
--- NOTE | 2022-11-22 05:03 | NUR ---
SHIFT SUMMARY PT NO LONGER REPORTING SEEING ANYTHING, WATCHING TV AND HAS RESUMED INITIAL MENTATION. BESIDES THE HALLUCINATIONS (SEE PREVIOUS NOTE), NO NEW NEURO CHANGES. NO NEW C/O'S OF PAIN, EXCEPT FOR INITIAL [place] AND ABDOMINAL PAIN. MINIMAL OUTPUT INTO RECTAL TUBE. PT SEEMS MORE ALERT THIS AM. FLAHERTY CATHETER AND RECTAL TUBE PATENT AND DRAINING TO GRAVITY.
--- NOTE | 2022-11-22 12:57 | NUR ---
SUMMARY PT REMAINS A/O X2, V/S STABLE. C/O INCREASED SOB, LUNGS CLEAR, O2 SAT > 95%, MD AWARE, LASIX ORDERED AND ADMINISTERED. REMAINS NPO, RECTAL TUBE IN PLACE DRAINING BLACK LIQUID STOOL, FLUSHED. SKIN UNCHANGED, NO BREAKDOWN R/T PRESSURE NOTED. REYNOLD D/C'D. RN TO CONTINUE TO MONITOR. REPORT GIVEN TO ZABRINA NICHOLE.
--- NOTE | 2022-11-22 14:11 | NUR ---
Assumed care of pt at 1245 from Naomi GERBER. Pt resting in bed. Changed patient due to incontinent void of urine. Hector STEELE'd today. Placed purewick catheter after cleaning patient and there was immediately 200 mL urine collected.
--- NOTE | 2022-11-22 18:16 | NUR ---
SUMMARY PCU patient. Pt A&O x 2. Answers questions, follows commands, verbalizes needs. Pleasant and cooperative with care. Soft, whispery voice. SpO2 90% or greater RA. SR per monitor; some transient episodes of narrow QRS tachycardia that resolve spontaneously. Pt asymptomatic. BP stable. Young removed today. Purewick in place for management of incontinent urine voids after lasix administration. Skin is overall C/D/I. Lifted patient into a new bed as previous bed was not inflating. Pt states new bed is more comfortable. Rectal tube remains in place, draining liquid brown stool. Pt's spouse and son in to visit, update provided. Pt received final dose of ampicillin today. Able to add IVPB folic acid into CPN. This means RIJ central line can now be removed.
--- NOTE | 2022-11-22 20:30 | NUR ---
ASSUMED CARE PT IS CONFUSED AND ORIENTED TO SELF AND SURROUNDINGS (ABLE TO TELL ME BIRTHDATE AND THAT SHE IS IN THE HOSPITAL; CONTINUES TO SPEAK IN WHISPERS/MOUTHING WORDS. PT IS PLEASANT AND DOES NO C/O OF ANY CP OR NAUSEA, BUT CONTINUES TO HAVE SOME SOB. SPO2 >92% ON RA; MAP >65. NO C/O'S OF ANY ABDOMINAL PAIN AT TIME OF THIS NOTE. ABDOMEN IS SALES DEVELOPMENT SPECIALIST W/ PALPATION. FOLLOWS COMMANDS APPROPRIATELY. PUREWICK IN PLACE AND DRAINING TO GRAVITY.
--- NOTE | 2022-11-23 01:26 | NUR ---
UPDATE PT IS CONSIDERABLY MORE DISORIENTED AND CONFUSED AT NIGHT. PULLS AT GOWN/LEADS, DIFFICULT TO REORIENT.
[2022-11-23 03:58] LABS: BASOPHILS ABSOLUTE AUTO 0.03 K/mm3 (0.00-0.23); BASOPHILS PERCENT AUTO 0 % (0-2); EOSINOPHILS ABSOLUTE AUTO 0.22 K/mm3 (0.00-0.68); EOSINOPHILS PERCENT AUTO 1 % (0-6); Hematocrit 23.5 % (33.0-51.0); Hemoglobin 7.5 g/dL (11.5-16.0); IMMATURE GRAN ABSOLUTE AUTO 0.14 K/mm3 (0.00-0.10); IMMATURE GRAN PERCENT AUTO 1 % (0-1); LYMPHOCYTES ABSOLUTE AUTO 3.96 K/mm3 (0.84-5.20); LYMPHOCYTES PERCENT AUTO 24 % (21-46); MONOCYTES ABSOLUTE AUTO 0.66 K/mm3 (0.16-1.47); MONOCYTES PERCENT AUTO 4 % (4-13); Mean Corpuscular HGB 32.8 pg (26.0-34.0); Mean Corpuscular HGB Conc 31.9 g/dL (31.5-36.5); Mean Corpuscular Volume 103 fL (80-100); Mean Platelet Volume 10.5 fL (9.1-12.4); NEUTROPHILS ABSOLUTE AUTO 11.39 K/mm3 (1.96-9.15); NEUTROPHILS PERCENT AUTO 70 % (41-73); NRBC ABSOLUTE 0.08 K/mm3 (0.00-0.02); NRBC Auto 0.5 /100 WBC (0.0-0.2); Platelet Count 251 K/mm3 (150-400); RDW Coefficient Variation 25.6 % (11.7-14.2); RDW Standard Deviation 93.1 fL (35.1-46.3); Red Blood Cell Count 2.29 M/mm3 (3.80-5.20)
[2022-11-23 04:16] LABS: Albumin, Blood 1.8 g/dL (3.4-5.0); Albumin/Globulin Ratio 0.7 (0.8-1.8); Bilirubin, Total 0.4 mg/dL (0.1-1.0); Calcium, Blood 8.1 mg/dL (8.5-10.1); Creatinine, Blood 0.65 mg/dL (0.40-1.00); Globulin, Blood 2.7 g/dL (2.2-4.0); Potassium, Blood 3.4 mmol/L (3.5-5.5); Total Protein, Blood 4.5 g/dL (6.4-8.2)
--- NOTE | 2022-11-23 06:10 | NUR ---
SHIFT SUMMARY CHECKED IN ON PT AT 0354 W/ NO ACUTE CHANGES, SBP, SPO2 CONSISTENT WITH EARLIER IN THE NIGHT. AT 0500 WENT IN W/ PCT TO START MORNING MEDS AND NOTED THAT PT HAD BRIGHT RED BLOODY MUCOUS ON HER CHEST AND A MODERATE AMOUNT OF BRIGHT RED BLOODY MUCOUS ON HER SIDE/BED. LEVEL VIAL CURVATURE GAUGER CALLED INTO ROOM TO HELP ASSESS PT AND SBP WAS NOTED TO BE IN THE 80'S W/ THE MAP TRENDING DOWNWARDS. DR FOREMAN NOTIFIED W/ ORDERS ORDERS FOR 500ML BOLUS, 2 PRBC'S, TXA, FROZEN PLASMA. DR EDMOND NOTIFIED; CONCURRED W/ DR FOREMAN'S ORDERS. AFTER BOLUS INFUSED W/ SOME EPINEPHRINE (ORDER GIVEN TO LEVEL VIAL CURVATURE GAUGER), PT BECAME SLIGHTLY MORE ALERT, BUT STILL NOT RESPONDING TO QUESTIONS. PT VOMITED ONE MORE TIME AFTER INITIAL BOUT.
[2022-11-23 06:29] LABS: Hematocrit 16.7 % (33.0-51.0); Hemoglobin 5.2 g/dL (11.5-16.0)
--- NOTE | 2022-11-23 06:29 | NUR ---
DR HASSAN CALLED CALLED DR HASSAN AT DR FOREMAN'S REQUESTS. MADE AWARE SO THEY CAN COME SEE PT EARLY.
--- NOTE | 2022-11-23 08:00 | NUR ---
ASSUMED CARE OF PT AT 0715 BEDSIDE REPORT RECIEVED FROM ZABRINA HICKS. PT HAS STARTED VOMITING BRIGHT RED BLOOD AND HAVING MAROON OUTPUT VIA RECTAL TUBE FOR LAST APPROX [address] EDMOND NOTIFIED BY ZABRINA HICKS. LIMITED IV ACCESS, CURRENTLY WITH LEVOPHED INFUSING TO MAINTAIN SBP > 90 AND MAP > 65 (SEE ICU-C FLOWSHEET FOR TITRATIONS). ON ROOM AIR, ORIENTED X2, ST 100-110, AT BEDSIDE. RN TO CONTINUE TO MONITOR.
--- NOTE | 2022-11-23 09:33 | NUR ---
PICC LINE #2 INSERTION SECOND PICC LINE PLACED TO DUE NEED FOR MORE ACCESS, VASOPRESSORS, BLOOD TRANSFUSIONS, COMPATABILITY ISSUES AND INABILITY TO OBTAIN OTHER SUFFICIENT ACCESS. TRIPLE LUMEN 5FR CATHETER PLACED TO LEFT BRACHIAL VEIN WITH TOTAL CATHETER LENGTH OF 45 CM, 1 CM EXPOSED AFTER INSERTION. LOT #[id number]. PLACEMENT CONFIRMED WITH SAPIENS TIP LOCATION DEVICE, EKG PLACEMENT, AND CONFIRMATION BY CHEST XRAY READ BY DR. CARTER. PT PREVIOUSLY HAD SINGLE LUMEN PICC TO JASON WHICH REMAINS IN PLACE.
[2022-11-23 10:09] LABS: International Normalized Ratio 1.38; Prothrombin Time Results 14.2 Sec (9.7-11.5)
[2022-11-23 10:33] LABS: PO2 Arterial 384 mmHg (80-100); pH Blood Arterial 7.46 (7.35-7.45)
[2022-11-23 12:10] LABS: Source, Urine Foley catheter
[2022-11-23 12:16] LABS: Appearance, Urine Clear (Clear); Bilirubin, Urine Neg (Neg); Blood, Urine 2+ (Neg); Color, Urine Yellow (P-Yellow); Glucose Qualitative, Urine Neg (Neg); Ketones, Urine Neg (Neg); Leukocyte Esterase, Urine Neg (Neg); Nitrite, Urine Neg (Neg); Protein, Urine 1+ (Neg); Urobilinogen, Urine NORM (Normal)
[2022-11-23 12:35] LABS: Bacteria Mod /hpf; Red Blood Cells, Urine 0-2 /hpf (0-2); Squamous Epithelial Cells Few /hpf (Few)
[2022-11-23 12:36] LABS: Mucus Light (0-Heavy)
[2022-11-23 12:37] LABS: Amorphous Light (0-Heavy); Transitional Epithelial Cells Rare /hpf (0-Rare)
--- NOTE | 2022-11-23 12:37 | NUR ---
SUMMARY HGB & HCT DROPEED, PT VOMITING BRIGHT RED BLOOD AND HAVING MAROON OUTPUT FROM RECTAL TUBE. 1ST UNIT OF PRBC'S UP AT 0723. DR. EDMOND NOTIFIED OF INCREASED BLEEDING, DECISION TO INTUBATE MADE BY DR. EDMOND AND DR. CARTER. INTUBATED AT 0828, HAD APPROX 300ML BRIGHT RED BLOOD VIA MOUTH DURING INTUBATION. TRIPLE LUMEN PICC PLACED BY MEDICATION AIDE DUE TO LIMITED IV ACCESS AND NEED FOR PRESSORS AT 0845. LEVO TITRATED TO MAX, 1 LITER NS BOLUS GIVEN TO MAINTAIN MAP > 65. 2ND UNIT OF PRBC'S STARTED AT 0915 AFTER PICC PLACED. 1 UNIT OF FFP GIVEN AT 0954 AND 3RD UNIT OF BLOOD GIVEN AT 1031. ALL BLOOD PRODUCTS TRANSFUSED AT 999ML/HR PER DR. CARTER. FREQUENT V/S AND 1:1 MONITORING OF PT DURING TRANSFUSIONS, NO TRANFUSION REACTION NOTED. PROPOFOL AND PROTONIX DRIPS STARTED, SEE ICU-C FLOWSHEET FOR TITIRATIONS APPROPRIATE. PT ACCEPTED FOR TRANSFER TO [facility], REPORT CALLED TO RAMA, ICU MEDICATION AIDE AT 1115. REACH LEFT WITH PT VIA GURNEY TO BE TRANSPORTED VIA HELICOPTER AT 1135. AT BEDSIDE, EMOTIONAL SUPPORT PROVIDED BY PALLIATIVE CARE RN. REYNOLD PLACED PRIOR TO TRANSPORT, PT TOLERATED WELL. RETURN PHONE NUMBER PROVIDED TO RECEIVING MEDICATION AIDE AND ENCOURAGED TO CALL WITH ANY QUESTIONS.
== END 2022-11-23 11:50 | disposition short-term general hospital (02) | DRG 640 ==
LOC: ER 14:30 → MEDS 14:31 → ICUE 11-12 15:16 → MEDS 11-12 15:17 → ICUE 11-16 14:06
PROVIDERS: Emergency Medicine; Family Medicine; Internal Medicine; Internal Medicine Critical Care Medicine; Internal Medicine Gastroenterology; ADMIT Internal Medicine
PROC: 0DJ08ZZ Inspection of Upper Intestinal Tract, Via Natural or Artificial Opening Endoscopic (ICD-10-PCS; 2022-11-13)
PROC: 3E033XZ Introduction of Vasopressor into Peripheral Vein, Percutaneous Approach (ICD-10-PCS; 2022-11-16)
PROC: 0BH18EZ Insertion of Endotracheal Airway into Trachea, Via Natural or Artificial Opening Endoscopic (ICD-10-PCS; 2022-11-16)
PROC: 5A1945Z Respiratory Ventilation, 24-96 Consecutive Hours (ICD-10-PCS; 2022-11-16)
PROC: 02HV33Z Insertion of Infusion Device into Superior Vena Cava, Percutaneous Approach (ICD-10-PCS; 2022-11-16)
PROC: 0T9B70Z Drainage of Bladder with Drainage Device, Via Natural or Artificial Opening (ICD-10-PCS; 2022-11-16)
PROC: 30233N1 Transfusion of Nonautologous Red Blood Cells into Peripheral Vein, Percutaneous Approach (ICD-10-PCS; principal; 2022-11-16 19:00)
PROC: 30233L1 Transfusion of Nonautologous Fresh Plasma into Peripheral Vein, Percutaneous Approach (ICD-10-PCS; 2022-11-23)
PROC: 30233K1 Transfusion of Nonautologous Frozen Plasma into Peripheral Vein, Percutaneous Approach (ICD-10-PCS; 2022-11-23)
PROC: 4A033R1 Measurement of Arterial Saturation, Peripheral, Percutaneous Approach (ICD-10-PCS; 2022-11-23)
DX: E43 Unspecified severe protein-calorie malnutrition (principal); J96.01 Acute respiratory failure with hypoxia; R57.8 Other shock; N39.0 Urinary tract infection, site not specified; E87.20 Acidosis, unspecified; K92.0 Hematemesis; E27.40 Unspecified adrenocortical insufficiency; K21.9 Gastro-esophageal reflux disease without esophagitis; G47.33 Obstructive sleep apnea (adult) (pediatric); M19.90 Unspecified osteoarthritis, unspecified site; G43.909 Migraine, unspecified, not intractable, without status migrainosus; E03.9 Hypothyroidism, unspecified; F31.9 Bipolar disorder, unspecified; E66.9 Obesity, unspecified; K22.2 Esophageal obstruction; N18.9 Chronic kidney disease, unspecified; E11.22 Type 2 diabetes mellitus with diabetic chronic kidney disease; G47.00 Insomnia, unspecified; M81.0 Age-related osteoporosis without current pathological fracture; E11.40 Type 2 diabetes mellitus with diabetic neuropathy, unspecified; Z68.28 Body mass index [BMI] 28.0-28.9, adult; Z98.51 Tubal ligation status; R13.10 Dysphagia, unspecified; F41.1 Generalized anxiety disorder; E53.8 Deficiency of other specified B group vitamins; E86.0 Dehydration; T17.998A Other foreign object in respiratory tract, part unspecified causing other injury, initial encounter; B96.20 Unspecified Escherichia coli [E. coli] as the cause of diseases classified elsewhere; Z86.010 Personal history of colon polyps; Z98.84 Bariatric surgery status; Z90.49 Acquired absence of other specified parts of digestive tract; Z98.890 Other specified postprocedural states; Z98.891 History of uterine scar from previous surgery; Z88.2 Allergy status to sulfonamides; Z88.8 Allergy status to other drugs, medicaments and biological substances; Z79.890 Hormone replacement therapy; Z79.899 Other long term (current) drug therapy
CPT/HCPCS: 31500; 36415; 36430; 36556; 36569; 36573; 36600; 51702; 71045; 74176; 80048; 80053; 80069; 81001; 82330; 82533; 82607; 82746; 82803; 82947; 83605; 83735; 84100; 84478; 85014; 85018; 85025; 85027; 85384; 85610; 85730; 86850; 86900; 86901; 86923; 87040; 87077; 87086; 87186; 93005; 93010; 93306; 94002; 94003; 94640; 94664; 96361; 96367; 96372; 96374; 96375; 96376; 97110; 97110-CQ; 97162; 97164; 97166; 97530; 97535; 99285-25; A9270; C1751; C9113; G0378; J0171; J0290; J0696; J1430; J1650; J1720; J1815; J1885; J1940; J2001; J2060; J2250; J2405; J2543; J2704; J3010; J3411; J3475; J7030; J7050; J7060; J7120; P9016; P9059

== ENCOUNTER 2023-04-20 01:53 | Emergency (ER) | payer MEDICARE, OTHER ==
[~2023-04-20] VITALS: Ht 177.8 cm; Wt 74.8 kg
[~2023-04-20 01:53] MED LIST changes: +Mirtazapine15 M1 SL
[2023-04-20 05:18] VITALS: BP 126/80
[2023-04-20 06:34] LABS: Albumin, Blood 3.6 g/dL (3.4-5.0); Albumin/Globulin Ratio 0.8 (0.8-1.8); Bilirubin, Total 0.5 mg/dL (0.1-1.0); Bun/Creatinine Ratio 43.2 (12.0-20.0); Calcium, Blood 9.7 mg/dL (8.5-10.1); Creatinine, Blood 0.76 mg/dL (0.40-1.00); Globulin, Blood 4.3 g/dL (2.2-4.0); Potassium, Blood 4.5 mmol/L (3.5-5.5); Total Protein, Blood 7.9 g/dL (6.4-8.2)
== END 2023-04-20 07:43 | disposition home or self-care (01) ==
LOC: ER 01:53
PROVIDERS: Emergency Medicine
DX: K94.23 Gastrostomy malfunction (principal); J44.9 Chronic obstructive pulmonary disease, unspecified; I10 Essential (primary) hypertension; E11.9 Type 2 diabetes mellitus without complications; E07.9 Disorder of thyroid, unspecified; F17.200 Nicotine dependence, unspecified, uncomplicated; Z88.2 Allergy status to sulfonamides; Z88.8 Allergy status to other drugs, medicaments and biological substances; Z88.5 Allergy status to narcotic agent; Z88.6 Allergy status to analgesic agent; Z79.899 Other long term (current) drug therapy
CPT/HCPCS: 49465; 80053; 99284-25; A9270; J7120; Q9963

== ENCOUNTER → 2023-05-02 | Outpatient (CLI) | payer MEDICARE, OTHER | LOC: LAB SHORT 15:27 → LAB 15:27 | DX: N39.0 Urinary tract infection, site not specified (principal) | CPT/HCPCS: 87077; 87086; 87186 ==

== ENCOUNTER 2023-05-21 21:38 | Emergency (ER) | payer MEDICARE, OTHER ==
[~2023-05-21] VITALS: Ht 162.6 cm; Wt 72.6 kg
[2023-05-22 03:13] LABS: BASOPHILS ABSOLUTE AUTO 0.04 K/mm3 (0.00-0.23); BASOPHILS PERCENT AUTO 1 % (0-2); EOSINOPHILS ABSOLUTE AUTO 0.21 K/mm3 (0.00-0.68); EOSINOPHILS PERCENT AUTO 3 % (0-6); Hematocrit 34.8 % (33.0-51.0); Hemoglobin 10.8 g/dL (11.5-16.0); IMMATURE GRAN ABSOLUTE AUTO 0.02 K/mm3 (0.00-0.10); IMMATURE GRAN PERCENT AUTO 0 % (0-1); LYMPHOCYTES ABSOLUTE AUTO 2.45 K/mm3 (0.84-5.20); LYMPHOCYTES PERCENT AUTO 31 % (21-46); MONOCYTES ABSOLUTE AUTO 0.78 K/mm3 (0.16-1.47); MONOCYTES PERCENT AUTO 10 % (4-13); Mean Corpuscular Volume 81 fL (80-100); Mean Platelet Volume 9.2 fL (9.1-12.4); NEUTROPHILS ABSOLUTE AUTO 4.47 K/mm3 (1.96-9.15); NEUTROPHILS PERCENT AUTO 56 % (41-73); Platelet Count 233 K/mm3 (150-400); RDW Coefficient Variation 15.8 % (11.7-14.2); RDW Standard Deviation 46.4 fL (35.1-46.3); Red Blood Cell Count 4.32 M/mm3 (3.80-5.20); White Blood Cell Count 7.97 K/mm3 (4.00-11.30)
[2023-05-22 03:39] VITALS: BP 139/81
[2023-05-22 03:42] LABS: Albumin, Blood 3.2 g/dL (3.4-5.0); Albumin/Globulin Ratio 0.8 (0.8-1.8); Bilirubin, Total 0.3 mg/dL (0.1-1.0); Bun/Creatinine Ratio 35.2 (12.0-20.0); Calcium, Blood 9.4 mg/dL (8.5-10.1); Creatinine, Blood 0.65 mg/dL (0.40-1.00); Magnesium, Blood 2.2 mg/dL (1.6-2.4); Phosphorus, Blood 3.7 mg/dL (2.5-4.9); Potassium, Blood 3.9 mmol/L (3.5-5.5); Thyroid Stimulating Hormone 1.11 uIU/mL (0.360-4.800); Total Protein, Blood 7.2 g/dL (6.4-8.2)
[2023-05-26] MEDS ORDERED: CYAN1000I IM (11:22)
[2023-05-26] MEDS ORDERED: ACET500 PO (11:22)
[2023-05-26] MEDS ORDERED: GABA100 PO (11:23)
[2023-05-26] MEDS ORDERED: DOCU100 PO (11:23)
[2023-05-26] MEDS ORDERED: HYOS.125 SL (11:24)
[2023-05-26] MEDS ORDERED: OMEP20ER PO (11:24)
[2023-05-26] MEDS ORDERED: ONDA4ODT MM (11:25)
[2023-05-26] MEDS ORDERED: SENNA LAXATIVE8.6 MG PO (11:25)
[2023-05-26] MEDS ORDERED: MIRALAX17 GM PO (11:25)
[2023-05-26] MEDS ORDERED: TRAZ50 PO (11:26)
[2023-05-26] MEDS ORDERED: TRAZ100 PO (11:26)
== END 2023-05-22 03:54 | disposition home or self-care (01) ==
LOC: ER 21:38
PROVIDERS: Emergency Medicine
DX: K94.23 Gastrostomy malfunction (principal); J44.9 Chronic obstructive pulmonary disease, unspecified; G47.30 Sleep apnea, unspecified; I10 Essential (primary) hypertension; E11.9 Type 2 diabetes mellitus without complications; G43.909 Migraine, unspecified, not intractable, without status migrainosus; Z88.2 Allergy status to sulfonamides; Z88.5 Allergy status to narcotic agent; Z88.6 Allergy status to analgesic agent; Z88.8 Allergy status to other drugs, medicaments and biological substances; Z79.890 Hormone replacement therapy; Z79.899 Other long term (current) drug therapy
CPT/HCPCS: 43762; 49465; 80053; 83735; 84100; 84443; 85025; 93005; 93010; 96360-59; 99283-25; J7030; Q9963

== ENCOUNTER 2023-05-27 08:36 | Day surgery (SDC) | payer MEDICARE, OTHER ==
[~2023-05-27] VITALS: Ht 177.8 cm; Wt 76.0 kg
[~2023-05-27 08:36] MED LIST changes: +ACET500 PO; +CYAN1000I IM; +HYOS.125 SL; +MIRALAX17 GM PO; +ONDA4ODT MM; +SENNA LAXATIVE8.6 MG PO; +TRAZ50 PO
[2023-05-27 09:00] VITALS: BP 127/81
[2023-05-27 10:47] VITALS: BP 103/81
--- NOTE | 2023-05-27 11:50 | NUR ---
PT AND SPOUSE GIVEN DC INSTRUCTIONS AND FOLLOW UP INFORMATION, VERBALIZED UNDERSTANDING. PT DENIES ANY PAIN OR DISCOMFORT AT TIME OF DISCHARGE, OUT TO CAR VIA WHEELCHAIR. ACCOMPANIED BY .
== END 2023-05-27 11:50 | disposition home or self-care (01) ==
LOC: MHTC 08:36
DX: T85.598A Other mechanical complication of other gastrointestinal prosthetic devices, implants and grafts, initial encounter (principal); E11.22 Type 2 diabetes mellitus with diabetic chronic kidney disease; I12.9 Hypertensive chronic kidney disease with stage 1 through stage 4 chronic kidney disease, or unspecified chronic kidney disease; N18.30 Chronic kidney disease, stage 3 unspecified; E78.5 Hyperlipidemia, unspecified; Z88.2 Allergy status to sulfonamides; Y83.8 Other surgical procedures as the cause of abnormal reaction of the patient, or of later complication, without mention of misadventure at the time of the procedure; Z98.84 Bariatric surgery status
CPT/HCPCS: 49451; C1729; C1769; C1887; Q9967

== ENCOUNTER → 2023-07-10 | Outpatient (CLI) | payer MEDICARE, OTHER ==
[2023-07-10 15:28] LABS: BASOPHILS ABSOLUTE AUTO 0.04 K/mm3 (0.00-0.23); BASOPHILS PERCENT AUTO 1 % (0-2); EOSINOPHILS PERCENT AUTO 1 % (0-6); Hematocrit 44.7 % (33.0-51.0); Hemoglobin 14.6 g/dL (11.5-16.0); IMMATURE GRAN ABSOLUTE AUTO 0.02 K/mm3 (0.00-0.10); IMMATURE GRAN PERCENT AUTO 0 % (0-1); LYMPHOCYTES ABSOLUTE AUTO 2.53 K/mm3 (0.84-5.20); LYMPHOCYTES PERCENT AUTO 37 % (21-46); MONOCYTES ABSOLUTE AUTO 0.39 K/mm3 (0.16-1.47); MONOCYTES PERCENT AUTO 6 % (4-13); Mean Corpuscular HGB Conc 32.7 g/dL (31.5-36.5); Mean Corpuscular Volume 92 fL (80-100); Mean Platelet Volume 9.4 fL (9.1-12.4); NEUTROPHILS ABSOLUTE AUTO 3.82 K/mm3 (1.96-9.15); NEUTROPHILS PERCENT AUTO 55 % (41-73); Platelet Count 275 K/mm3 (150-400); RDW Coefficient Variation 21.5 % (11.7-14.2); RDW Standard Deviation 70.8 fL (35.1-46.3); Red Blood Cell Count 4.86 M/mm3 (3.80-5.20)
[2023-07-10 15:36] LABS: Albumin, Blood 3.7 g/dL (3.4-5.0); Albumin/Globulin Ratio 0.9 (0.8-1.8); Bilirubin, Total 0.5 mg/dL (0.1-1.0); Calcium, Blood 9.7 mg/dL (8.5-10.1); Creatinine, Blood 0.96 mg/dL (0.40-1.00); Globulin, Blood 4.2 g/dL (2.2-4.0); Magnesium, Blood 2.2 mg/dL (1.6-2.4); Potassium, Blood 3.9 mmol/L (3.5-5.5); Total Protein, Blood 7.9 g/dL (6.4-8.2)
== END ==
LOC: LAB SHORT 15:20 → LAB 15:20
PROVIDERS: Chiropractor
DX: R10.32 Left lower quadrant pain (principal); R82.79 Other abnormal findings on microbiological examination of urine
CPT/HCPCS: 80053; 83735; 85025; 87086

== ENCOUNTER → 2023-07-15 | Outpatient (CLI) | payer MEDICARE, OTHER | LOC: PLD 07:56 → LAB SHORT 07:56 | DX: D48.5 Neoplasm of uncertain behavior of skin (principal) | CPT/HCPCS: 88312 ==

== ENCOUNTER 2024-01-06 07:49 | Day surgery (SDC) | payer MEDICARE, OTHER ==
[~2024-01-06] VITALS: Ht 177.8 cm; Wt 79.0 kg
[~2024-01-06 07:49] MED LIST changes: +METO25 PO
[2024-01-06 08:12] VITALS: BP 153/94
[2024-01-06 08:16] VITALS: BP 153/94
[2024-01-06] MEDS ORDERED: NS 500 ML IV ONE (08:50)
[2024-01-06] MEDS ORDERED: FentaNYL Citrate 50 MCG/ML 2 ML Injection ONE (08:50)
[2024-01-06 09:45] VITALS: BP 155/93
--- NOTE | 2024-01-06 10:10 | NUR ---
PT AND S/O VERBALIZES UNDERSTANDING WRITTEN AND VERBAL INSTRUCTIONS. PT DENIES QUESTIONS. PT IV DC'D. CATH INTACT. PRESSURE DSG APPLIED. PT DRESSES SELF WITH MINIMAL ASSISTANCE. PT DC TO HOME VIA S/O BY PATIENTS W/C
== END 2024-01-06 10:15 | disposition home or self-care (01) ==
LOC: MHTC 07:49
DX: Z46.59 Encounter for fitting and adjustment of other gastrointestinal appliance and device (principal); K31.1 Adult hypertrophic pyloric stenosis; R13.10 Dysphagia, unspecified; Z93.4 Other artificial openings of gastrointestinal tract status; Z88.2 Allergy status to sulfonamides; Z88.8 Allergy status to other drugs, medicaments and biological substances; E11.9 Type 2 diabetes mellitus without complications; E78.5 Hyperlipidemia, unspecified
CPT/HCPCS: 49451; 99152; 99153; C1729; C1769; J3010; J7040; Q9967

== ENCOUNTER 2024-01-19 22:07 | Emergency (ER) | payer MEDICARE, OTHER ==
[~2024-01-19] VITALS: Ht 177.8 cm; Wt 86.2 kg
[2024-01-19 22:14] VITALS: BP 169/80
== END 2024-01-20 00:59 | disposition home or self-care (01) ==
LOC: ER 22:07
DX: S83.91XA Sprain of unspecified site of right knee, initial encounter (principal); M17.11 Unilateral primary osteoarthritis, right knee; I10 Essential (primary) hypertension; X50.1XXA Overexertion from prolonged static or awkward postures, initial encounter; Z88.2 Allergy status to sulfonamides; Z88.8 Allergy status to other drugs, medicaments and biological substances; Z79.890 Hormone replacement therapy; Z79.899 Other long term (current) drug therapy

== ENCOUNTER 2024-05-10 15:21 | Inpatient (IN) | payer MEDICARE, OTHER ==
[~2024-05-10] VITALS: Ht 177.8 cm; Wt 100.0 kg
[2024-05-10] MEDS ORDERED: NS 1,000 ML IV SCH ×2 (15:40→17:00)
[2024-05-10] MEDS ORDERED: Hydrocortisone Sod Succinate 100 MG Vial IV ONE (15:40)
[2024-05-10 16:23] LABS: Hematocrit 40.5 % (33.0-51.0); Hemoglobin 13.2 g/dL (11.5-16.0); Mean Corpuscular HGB 31.1 pg (26.0-34.0); Mean Corpuscular HGB Conc 32.6 g/dL (31.5-36.5); Mean Corpuscular Volume 95 fL (80-100); Mean Platelet Volume 10.2 fL (9.1-12.4); Platelet Count 223 K/mm3 (150-400); RDW Coefficient Variation 16.7 % (11.7-14.2); RDW Standard Deviation 59.3 fL (35.1-46.3); Red Blood Cell Count 4.25 M/mm3 (3.80-5.20); White Blood Cell Count 18.98 K/mm3 (4.00-11.30)
[2024-05-10 16:38] LABS: Source, Urine Foley catheter
[2024-05-10 16:42] LABS: Appearance, Urine Clear (Clear); Bilirubin, Urine Neg (Neg); Blood, Urine 2+ (Neg); Color, Urine Yellow (P-Yellow); Glucose Qualitative, Urine Neg (Neg); Ketones, Urine Neg (Neg); Leukocyte Esterase, Urine 2+ (Neg); Nitrite, Urine Neg (Neg); Protein, Urine 2+ (Neg); Specific Gravity, Urine 1.015 (1.003-1.022); Urobilinogen, Urine 2+ (Normal)
[2024-05-10 16:46] LABS: Magnesium, Blood 2.2 mg/dL (1.6-2.4)
[2024-05-10 16:49] LABS: Albumin, Blood 2.1 g/dL (3.4-5.0); Albumin/Globulin Ratio 0.4 (0.8-1.8); Bilirubin, Total 1.7 mg/dL (0.1-1.0); Bun/Creatinine Ratio 35.3 (12.0-20.0); Calcium, Blood 9.4 mg/dL (8.5-10.1); Creatinine, Blood 1.73 mg/dL (0.40-1.00); Globulin, Blood 5.4 g/dL (2.2-4.0); Potassium, Blood 3.7 mmol/L (3.5-5.5); Thyroid Stimulating Hormone 0.197 uIU/mL (0.360-4.800); Total Protein, Blood 7.5 g/dL (6.4-8.2)
[2024-05-10 16:53] LABS: BAND PERCENT MAN 4 % (0-8); BASOPHILS PERCENT MAN 0 % (0-2); EOSINOPHILS PERCENT MAN 0 % (0-6); LYMPHOCYTES ABSOLUTE MAN 0.94 K/mm3 (0.84-5.20); LYMPHOCYTES PERCENT MAN 5 % (21-46); MONOCYTES ABSOLUTE MAN 1.13 K/mm3 (0.16-1.47); MONOCYTES PERCENT MAN 6 % (4-13); NEUTROPHILS ABSOLUTE MAN 16.89 K/mm3 (1.96-9.15); SEG NEUTROPHILS PERCENT MAN 85 % (41-73); TOTAL CELLS COUNTED 100
[2024-05-10 16:56] LABS: White Blood Cells, Urine 25-50 /hpf (0-5)
[2024-05-10 16:57] LABS: Bacteria Many /hpf
[2024-05-10 16:58] LABS: Squamous Epithelial Cells Few /hpf (Few)
[2024-05-10] MEDS ORDERED: CefTRIAXone Sodium 1,000 MG in NS 100 ML IV ONE ×2 (17:00→19:15)
[2024-05-10] MEDS ORDERED: Azithromycin 500 MG in NS 250 ML IV ONE ×3 (17:30→21:20)
[2024-05-10 17:35] LABS: Influenza A, PCR NEGATIVE (NEGATIVE); Influenza B, PCR NEGATIVE (NEGATIVE); Resp Syncytial Virus, PCR NEGATIVE (NEGATIVE); SARS-Cov-2 (COVID-19) PCR, MMC NEGATIVE (NEGATIVE)
[2024-05-10] MEDS ORDERED: Lactated Ringer's 1,000 ML IV SCH (19:00)
[2024-05-10] MEDS ORDERED: Ondansetron HCl 2 MG / ML 2ML Vial IV PRN (19:00)
[2024-05-10] MEDS ORDERED: Albuterol 2.5 MG/3 ML VIAL INH PRN (19:05)
[2024-05-10] MEDS ORDERED: MetroNIDAZOLE 500MG/NS 100 ml 100 ML IV ONE (19:15)
[2024-05-10 20:00] VITALS: BP 139/74
[2024-05-10 20:21] LABS: International Normalized Ratio 1.26; Prothrombin Time Results 13.3 Sec (9.7-11.5)
[2024-05-10] MEDS ORDERED: NS 1,000 ML IV ONE (20:50)
[2024-05-10] MEDS ORDERED: Lactobacil 2-S.Thermo-Bifido 1 1 Cap PO SCH (21:00)
[2024-05-10] MEDS ORDERED: NS 250 ML IV PRN (21:00)
[2024-05-10 23:07] VITALS: BP 125/71
[2024-05-11] MEDS ORDERED: MetroNIDAZOLE 500MG/NS 100 ml 100 ML IV SCH (02:01)
[2024-05-11 04:04] LABS: Hematocrit 33.7 % (33.0-51.0); Mean Corpuscular HGB 30.9 pg (26.0-34.0); Mean Corpuscular HGB Conc 32.6 g/dL (31.5-36.5); Mean Corpuscular Volume 95 fL (80-100); Mean Platelet Volume 9.7 fL (9.1-12.4); Platelet Count 247 K/mm3 (150-400); RDW Coefficient Variation 17.1 % (11.7-14.2); RDW Standard Deviation 59.8 fL (35.1-46.3); Red Blood Cell Count 3.56 M/mm3 (3.80-5.20); White Blood Cell Count 17.42 K/mm3 (4.00-11.30)
[2024-05-11 04:31] LABS: International Normalized Ratio 1.25; Prothrombin Time Results 13.2 Sec (9.7-11.5)
[2024-05-11 04:35] LABS: Magnesium, Blood 2.5 mg/dL (1.6-2.4)
[2024-05-11 04:36] LABS: Albumin, Blood 1.7 g/dL (3.4-5.0); Albumin/Globulin Ratio 0.4 (0.8-1.8); Bilirubin, Total 1.3 mg/dL (0.1-1.0); Bun/Creatinine Ratio 37.9 (12.0-20.0); Creatinine, Blood 1.16 mg/dL (0.40-1.00); Globulin, Blood 4.5 g/dL (2.2-4.0); Potassium, Blood 3.5 mmol/L (3.5-5.5); Total Protein, Blood 6.2 g/dL (6.4-8.2)
[2024-05-11 04:53] VITALS: BP 162/82
--- NOTE | 2024-05-11 05:28 | NUR ---
SHIFT SUMMARY- VITALS STABLE NEURO: PT IS ALERT, BUT ORIENTED TO ONLY SELF. PT IS AWARE THEY ARE CONFUSED AND EXPERIENCING AUDITORY HALLUCINATIONS. PERLLA. ALL EXTREMETIES EQUAL STRENGTH. GENERALIZED WEAKNESS. USES WALKER AT BASELINE. CARDIAC: PT IS NOW HYPERTENSIVE WITH SYSTOLIC IN THE 160'S. SPOUSE STATED PT MISSED THEIR MORNING BLOOD PRESSURE MEDICINE PRIOR TO ARRIVAL. TRACE EDEMA BLE. LUNGS: DIMINISHED BASES. ON 4LNC. PT IS ON RA BASELINE PER SPOUSE. GI: J TUBE PRESENT WITH FOUL ODOR WHEN CAP REMOVED. PT HAD GREEN GASTRIC CONTENTS GUSH AROUND STOMA, BUT THERE WAS NO OUTPUT FROM THE J TUBE WHEN CAP REMOVED. ABD IS DISTENDED. ABSENT BOWEL TONES- PROVIDER NOTIFIED. SPOUSE REPORTS NO BM IN ALMOST A WEEK AND NO FOOD INTAKE IN A COUPLE DAYS. LARGE DROP IN WEIGHT COMPARED TO LAST RECORDED. SPOUSE STATED INFUSION CLINIC WEIGHED HER LAST WEEK FOR COMPARISION. : FLAHERTY PLACED IN ER, DRAINING TO GRAVITY BELOW LEVEL OF BLADDER. CLEAR YELLOW. URINE LAB SHOWS MANY BACTERIA. SKIN: PHOTOS TAKEN AND PLACED IN CHART. SMALL PRESSURE AND EXCORIATION AROUND STOMA. SMALL ABRASION UNDER LEFT PANNUS, AND A LEFT KNEE ABRAISION NOTED WELL. SCD'S IN PLACE SEE LABS FOR RESULTS.
[2024-05-11 05:41] LABS: BAND PERCENT MAN 5 % (0-8); BASOPHILS PERCENT MAN 0 % (0-2); EOSINOPHILS PERCENT MAN 0 % (0-6); LYMPHOCYTES ABSOLUTE MAN 1.04 K/mm3 (0.84-5.20); LYMPHOCYTES PERCENT MAN 6 % (21-46); MONOCYTES ABSOLUTE MAN 1.04 K/mm3 (0.16-1.47); MONOCYTES PERCENT MAN 6 % (4-13); NEUTROPHILS ABSOLUTE MAN 15.32 K/mm3 (1.96-9.15); SEG NEUTROPHILS PERCENT MAN 83 % (41-73); TOTAL CELLS COUNTED 100
[2024-05-11] MEDS ORDERED: Levothyroxine Sodium 0.088 MG Tab PO SCH (06:00)
[2024-05-11 08:25] VITALS: BP 143/79
[2024-05-11 13:20] VITALS: BP 155/78
[2024-05-11 15:54] VITALS: BP 148/79
[2024-05-11 16:54] LABS: Glucose, Body Fluid 20 mg/dL
[2024-05-11 17:14] LABS: Protein, Body Fluid 1.3 g/dL
[2024-05-11 17:57] LABS: Lactate Dehydrogenase, Body Fl 6094 U/L
--- NOTE | 2024-05-11 19:34 | NUR ---
SHIFT SUMMARY: NEURO: PT ALERT AND ORIENTED TO SELF AND . OPENS EYES WHEN ASKED BUT US UNABLE TO FOLLOW ANY OTHER COMMANDS. CARDIAC: WNL RESP: ON 4L NC. TACHYPENIC. GI/: PT HAS A FLAHERTY. DRAINING WELL. G TUBE TO MIDLINE ABD. PT DID NOT EAT ANY FOOD TODAY DUE TO AMS. PT NOT SAFE TO SWOLLOW ANY FOOD DUE TO DECREASED ALERTNESS. SKIN: SEE PICTURES IN CART. PT HAD A LIVER BIOPSY THIS AFTERNOON. NO SIGNIFICANT CHANGES HAPPENED DURING THIS SHIFT.
[2024-05-11 20:15] VITALS: BP 169/82
[2024-05-11] MEDS ORDERED: Azithromycin 500 MG in NS 250 ML IV SCH (21:00)
[2024-05-11] MEDS ORDERED: CefTRIAXone Sodium 1,000 MG in NS 100 ML IV SCH (21:00)
--- NOTE | 2024-05-11 21:30 | NUR ---
PATIENT REQUESTING TYLENOL FOR GENERALIZED PAIN T/O. MD SAM CONTACTED. TO PLACE ORDER
[2024-05-11] MEDS ORDERED: Acetaminophen 325 MG TABLET PO PRN (21:35)
[2024-05-11 23:32] VITALS: BP 140/77
[2024-05-12 03:42] VITALS: BP 130/69
[2024-05-12 04:27] LABS: Hematocrit 31.8 % (33.0-51.0); Hemoglobin 10.7 g/dL (11.5-16.0); Mean Corpuscular HGB 31.6 pg (26.0-34.0); Mean Corpuscular HGB Conc 33.6 g/dL (31.5-36.5); Mean Corpuscular Volume 94 fL (80-100); Mean Platelet Volume 9.7 fL (9.1-12.4); Platelet Count 263 K/mm3 (150-400); RDW Coefficient Variation 17.2 % (11.7-14.2); RDW Standard Deviation 59.8 fL (35.1-46.3); Red Blood Cell Count 3.39 M/mm3 (3.80-5.20); White Blood Cell Count 14.48 K/mm3 (4.00-11.30)
[2024-05-12 05:02] LABS: Albumin, Blood 1.6 g/dL (3.4-5.0); Albumin/Globulin Ratio 0.4 (0.8-1.8); Bun/Creatinine Ratio 44.5 (12.0-20.0); Calcium, Blood 9.1 mg/dL (8.5-10.1); Creatinine, Blood 0.79 mg/dL (0.40-1.00); Globulin, Blood 4.3 g/dL (2.2-4.0); Potassium, Blood 3.2 mmol/L (3.5-5.5); Total Protein, Blood 5.9 g/dL (6.4-8.2)
[2024-05-12 05:28] LABS: BAND PERCENT MAN 6 % (0-8); BASOPHILS PERCENT MAN 0 % (0-2); EOSINOPHILS PERCENT MAN 0 % (0-6); LYMPHOCYTES % ATYPICAL MANUAL 2 % (0-0); LYMPHOCYTES ABSOLUTE MAN 1.15 K/mm3 (0.84-5.20); LYMPHOCYTES PERCENT MAN 6 % (21-46); METAMYELOCYTE ABSOLUTE MAN 0.43 K/mm3 (0.00-0.00); METAMYELOCYTE PERCENT MAN 3 % (0-0); MONOCYTES ABSOLUTE MAN 1.15 K/mm3 (0.16-1.47); MONOCYTES PERCENT MAN 8 % (4-13); MYELOCYTE ABSOLUTE MAN 0.14 K/mm3 (0.00-0.00); MYELOCYTE PERCENT MAN 1 % (0-0); NEUTROPHILS ABSOLUTE MAN 11.58 K/mm3 (1.96-9.15); SEG NEUTROPHILS PERCENT MAN 74 % (41-73); TOTAL CELLS COUNTED 100
--- NOTE | 2024-05-12 05:49 | NUR ---
Shift summary- Janelle had a good night- she complained of a headache and stomach ache- was able to communicate this to the RN and ask for tylenol. Able to swallow this medication and her levothyroxine medication early this morning. This was a significant improvement from the start of shift- as she was not alert enough at that point to take her probiotic medication when performing beginning of shift assessments and performing med-pass. Vitals stable throughout the night, good urine output. Still having noticable drainage from around the J-tube. Dressings changed at least twice during the night as they were saturated with purulent drainage. Janelle does not complain of pain during the cleansing of the site or the changing of the gauze during this. Antibiotics and fluids given as scheduled- no other needs noted throughout the shift.
[2024-05-12] MEDS ORDERED: Levothyroxine Sodium 0.075 MG Tab PO SCH (06:00)
[2024-05-12 07:45] VITALS: BP 135/72
[2024-05-12] MEDS ORDERED: Potassium Chl 20MEQ/Water100ML 100 ML IV SCH (09:25)
[2024-05-12] MEDS ORDERED: OxyCODONE HCL 10 MG TABCR PO SCH (10:00)
[2024-05-12 11:43] VITALS: BP 135/72
--- NOTE | 2024-05-12 15:54 | NUR ---
[facility] Patient is sleeping and so I visit with patient's spouse, Fito. Therapeutic alliance is already established from previous visits, so Fito tells me about the struggles, the tears and the victories. He speaks about the spiritual distress the patient's medical journey and the very recent of his brother's has caused. He is easily encouraged by spiritual guidance and prayer. He also responded well to the warmth and kindness from [facility] care. I will continue to remain available to patient and family.
[2024-05-12 16:12] VITALS: BP 134/71
--- NOTE | 2024-05-12 16:18 | NUR ---
MET WITH PATIENT AND MEG. WE REVIEWED HER HEALTH HISTORY. HE EXPRESSED THAT THE HAD A FEEDING TUBE PLACED A FEW YEARS AGO. HE REPORTED THAT NEFTALI HAD NEVER HAD MUCH OF AN APPETITE. NEFTALI WAS VERY TIRED DURING MY VISIT AND KEPT FALLING ASLEEP. PC WILL REMAIN AVALIABLE.
--- NOTE | 2024-05-12 18:21 | NUR ---
SHIFT SUMMARY NEURO: PT ALERT AND ORIENTED TO SELF. PT HAS BEEN SLEEPING ALL DAY AND OPENS HER EYES WHEN BEING TALKED TO BUT HER RESPONSES DO NOT MAKE SENSE. SHE DOES MOVE ARMS WHEN ASKED. CARDIAC: SINUS BOO IN THE 40'S-50'S WHICH IS NEW FROM YESTERDAY. PT IS NOT SYMPTOMATIC AND HER BLOOD PRESSURE IS WNL. DENIES ANY CP OR SOB. PROVIDER AWARE OF HR AND TALKED ABOUT CONSULTING CARDIOLOGY. AWAITING FURTHER ORDERS. RESP: LUNG SOUNDS CLEAR THROUGOUT. REMAINS ON 4L NC. PROVIDER WOULD LIKE TO TRY TO WEAN OFF OXYGEN SHE IS ON RA AT HOME. DENIES ANY SOB. NO RESP DISTRESSES NOTED. GI/: PT HAS A G TUBE TO LEFT LOWER ABD. EXCORIATION NOTED AROUND TUBE WITH A MODERATE AMOUNT OF DRAINAGE. SURGERY CONSULTED AND STATED THAT IT IS TOO COMPLEX AND NEEDS TO CONTINUE TO BE MANAGED BY [facility]. THIS RN CONSULTED WITH CHARGE NURSE. EXCORIATED SKIN CLEAN AND PROTECTIVE DRESSING APPLIED TO THIS RNS BEST ABILITY. PT HAS A FLAHERTY CATHETER THAT IS DRAINING JARAD COLORED URINE. SKIN. SEE CHART FOR PICTURES. IV'S: 20G LAC, 29G RHA. BOTH PATENT. NO OTHER SIGNIFICANT CHANGES DURING SHIFT.
[2024-05-12 20:52] VITALS: BP 148/85
[2024-05-12 23:24] VITALS: BP 145/74
[2024-05-13 03:03] VITALS: BP 140/71
[2024-05-13 04:38] LABS: Mean Corpuscular HGB 31.7 pg (26.0-34.0); Mean Corpuscular HGB Conc 33.3 g/dL (31.5-36.5); Mean Corpuscular Volume 95 fL (80-100); Mean Platelet Volume 9.8 fL (9.1-12.4); Platelet Count 288 K/mm3 (150-400); RDW Standard Deviation 62.9 fL (35.1-46.3); Red Blood Cell Count 3.47 M/mm3 (3.80-5.20); White Blood Cell Count 17.26 K/mm3 (4.00-11.30)
[2024-05-13 04:57] LABS: Albumin, Blood 1.6 g/dL (3.4-5.0); Albumin/Globulin Ratio 0.4 (0.8-1.8); Bilirubin, Total 0.7 mg/dL (0.1-1.0); Bun/Creatinine Ratio 40.2 (12.0-20.0); Creatinine, Blood 0.67 mg/dL (0.40-1.00); Globulin, Blood 4.3 g/dL (2.2-4.0); Potassium, Blood 3.7 mmol/L (3.5-5.5); Total Protein, Blood 5.9 g/dL (6.4-8.2)
[2024-05-13 05:03] LABS: BAND PERCENT MAN 8 % (0-8); BASOPHILS PERCENT MAN 0 % (0-2); EOSINOPHILS PERCENT MAN 0 % (0-6); LYMPHOCYTES ABSOLUTE MAN 0.17 K/mm3 (0.84-5.20); LYMPHOCYTES PERCENT MAN 1 % (21-46); METAMYELOCYTE ABSOLUTE MAN 0.34 K/mm3 (0.00-0.00); METAMYELOCYTE PERCENT MAN 2 % (0-0); MONOCYTES ABSOLUTE MAN 1.38 K/mm3 (0.16-1.47); MONOCYTES PERCENT MAN 8 % (4-13); MYELOCYTE ABSOLUTE MAN 0.34 K/mm3 (0.00-0.00); MYELOCYTE PERCENT MAN 2 % (0-0); NEUTROPHILS ABSOLUTE MAN 15.01 K/mm3 (1.96-9.15); SEG NEUTROPHILS PERCENT MAN 79 % (41-73); TOTAL CELLS COUNTED 100
[2024-05-13] MEDS ORDERED: Metoclopramide HCl 5MG / ML 2ML Vial IV ONE (06:00)
--- NOTE | 2024-05-13 06:08 | NUR ---
Shift Summary- Janelle slept very little tonight, had a lot of nausea throughout the night. Called MD around 5am for an additional order of nausea medication due to Janelle experiencing dry heaves. Was able to titrate her oxygen down to 1L- states she does not use oxygen at home. Tried her on room air and her saturations were good, but with turning in the bed, patient became very SOB and de-sats down to 87%- placed back onto 1L and she recovered quickly. Abdomen remains very tender to the touch on the LUQ. J-tube had a substantial amount of drainage- estimate 7-10 split gauze changes throughout the shift (each were very saturated with bile). HR remained in low 50's throughout the night, and tele-tech states she had BBB present on monitor.
[2024-05-13 07:14] VITALS: BP 135/70
[2024-05-13] MEDS ORDERED: HYDROmorphone HCl/Pf 1MG SYR IV PRN (11:15)
[2024-05-13] MEDS ORDERED: Metoclopramide HCl 5MG / ML 2ML Vial IV PRN (11:15)
[2024-05-13 12:15] VITALS: BP 142/79
[2024-05-13] MEDS ORDERED: LOSARTAN POTASS25 M2 PO (12:17)
[2024-05-13] MEDS ORDERED: OMEP20ER PO (12:17)
[2024-05-13] MEDS ORDERED: METOPROLOL TART25 MG PO (12:19)
[2024-05-13] MEDS ORDERED: Trazodone HCl300 MG PO (12:20)
--- NOTE | 2024-05-13 15:56 | NUR ---
[facility] visit conducted. Patient is lying in bed and groggy. She opens her eyes when she states that she is thirsty, needing a bag to vomit in or in pain. She made very small contibutions to the conversation except to request prayer, which I gladly provided. Fito (pt's S.O.), talks at about his break down emotionally this morning when his dtr was present and how she had to encourge him and lifted his spirits a bit, but he admitted to feeling flat still and really hoping that this day would bring some better results in terms of the pt's clarity, energy and ability to take in nutrition by mouth. We explore sources of hope, meaning and inspiration. I provide spiritual care to address those responses from Fito. He responded well to all interventions. I will continue to remain available.
[2024-05-13] MEDS ORDERED: Promethazine HCl 25 MG Supp PR ONE (16:00)
--- NOTE | 2024-05-13 16:19 | NUR ---
DISCUSSED CASE WITH MULTIDICIPLINARY TEAM. SPOKE WITH PROVIDER ABOUT PATIENTS CURRENT CONDITION. REVIEWED CURRENT MEDICAL CONDITIONS POSSIBLE SOURCES AND DIFFERENT TREATMENT OPTIONS. DISCUSSED SYMPTOM MANAGMENT WITH PROVIDER FOR PAIN AND NAUSEA. PROVIDER REPORTED THAT SURGICAL WAS CONSULTED TO EVALUATE FEEDING TUBE. PC WILL REMAIN AVALIABLE.
[2024-05-13] MEDS ORDERED: Piperacillin/Tazobactam Sod 4.5 GM in NS 100 ML IV SCH (17:25)
--- NOTE | 2024-05-13 18:44 | NUR ---
SHIFT ASSESSMENT NEURO: PT ALERT AND MORE ORIENTED THIS AM. ABLE TO GIVE PAIN RATE PAIN ON THE NUMERICAL PAIN SCALE. PT STILL ALERT THIS EVENING BUT APPEARS TO BE MORE TIRED. PT FOLLOWING COMMANDS WHEN ASKED TO MOVE EXTREMITIES. WEAK, BUT ABLE TO MOVE. CARDIAC: PT BP HAS BEEN STABLE THROUGHOUT THE DAY. HR TRENDING IN THE 50'S BUT WILL OCCASIONALLY GO UP TO THE 60'S TO 70'S. PT HAS NOT DROPPED DOWN IN THE 40'S MUCH SHE DID YESTERDAY. DENIES ANY CP OR SOB DURING SHIFT. RESP: REMAINS ON 1L NC THAT THAT TITRATED DOWN FROM 4L ON INSPECTOR HEATING AND REFRIGERATION. LUNG SOUNDS CLEAR THROUGHOUT. DENIES ANY SOB. GI/: PT HAS HAD UNVONTROLLABLE NAUSE WITH OCCASIONAL VOMITING THROUGHOUT THE WHOLE SHIFT. PT WAS MEDICATED WITH ZOFRAN AND REGLAN WITH NO RELIEF. PROVIDER WAS CONSULTED AND ORDERED A PHENERGAN SUPPOSITORY. FLAHERTY REMAINS IN PLACE FOR CRITICAL I'S&O'S PER PROVIDER ORDERS. PT DID NOT HAVE A BOWEL MOVEMENT TODAY. SKIN: DRESSING AROUND G TUBE STILL INTACT AND SKIN UNDERNEATH APPEARS TO BE LESS IRRITATED TODAY THEN YESTERDAY. TUBE CONTINUES TO LEAK A MODERATE AMOUNT OF GASTRIC CONTENTS. IV: 20G LAC PT RECIEVED ABD CT DUE TO C/O INCREASED ABD PAIN. AND ABX WERE CHANGED BY PROVIDER. NO OTHER SIGNIFICANT CHANGES HAPPENEDS DURING THIS SHIFT.
[2024-05-13 19:59] VITALS: BP 157/95
[2024-05-13] MEDS ORDERED: Simethicone 80 MG Chew PO PRN (21:15)
[2024-05-13 23:23] VITALS: BP 162/96
[2024-05-14 03:54] VITALS: BP 164/94
[2024-05-14 04:00] LABS: Hematocrit 33.7 % (33.0-51.0); Hemoglobin 11.2 g/dL (11.5-16.0); Mean Corpuscular HGB 31.3 pg (26.0-34.0); Mean Corpuscular HGB Conc 33.2 g/dL (31.5-36.5); Mean Corpuscular Volume 94 fL (80-100); Mean Platelet Volume 9.5 fL (9.1-12.4); NRBC ABSOLUTE 0.02 K/mm3 (0.00-0.02); NRBC Auto 0.1 /100 WBC (0.0-0.2); Platelet Count 311 K/mm3 (150-400); RDW Coefficient Variation 18.1 % (11.7-14.2); RDW Standard Deviation 62.9 fL (35.1-46.3); Red Blood Cell Count 3.58 M/mm3 (3.80-5.20); White Blood Cell Count 19.86 K/mm3 (4.00-11.30)
[2024-05-14 04:54] LABS: BAND PERCENT MAN 5 % (0-8); BASOPHILS PERCENT MAN 0 % (0-2); EOSINOPHILS PERCENT MAN 0 % (0-6); LYMPHOCYTES ABSOLUTE MAN 0.79 K/mm3 (0.84-5.20); LYMPHOCYTES PERCENT MAN 4 % (21-46); METAMYELOCYTE ABSOLUTE MAN 0.39 K/mm3 (0.00-0.00); METAMYELOCYTE PERCENT MAN 2 % (0-0); MONOCYTES ABSOLUTE MAN 1.19 K/mm3 (0.16-1.47); MONOCYTES PERCENT MAN 6 % (4-13); MYELOCYTE ABSOLUTE MAN 0.19 K/mm3 (0.00-0.00); MYELOCYTE PERCENT MAN 1 % (0-0); NEUTROPHILS ABSOLUTE MAN 17.27 K/mm3 (1.96-9.15); SEG NEUTROPHILS PERCENT MAN 82 % (41-73); TOTAL CELLS COUNTED 100
[2024-05-14 05:19] LABS: Albumin, Blood 1.7 g/dL (3.4-5.0); Albumin/Globulin Ratio 0.4 (0.8-1.8); Bilirubin, Total 0.6 mg/dL (0.1-1.0); Bun/Creatinine Ratio 27.9 (12.0-20.0); Calcium, Blood 8.7 mg/dL (8.5-10.1); Creatinine, Blood 0.68 mg/dL (0.40-1.00); Globulin, Blood 4.4 g/dL (2.2-4.0); Potassium, Blood 3.4 mmol/L (3.5-5.5); Total Protein, Blood 6.1 g/dL (6.4-8.2)
--- NOTE | 2024-05-14 05:19 | NUR ---
SHIFT SUMMARY PT A&O X2-3, ABLE TO MAKE NEEDS KNOWN, ANSWERS QUESTIONS APPROPRIATELY. VSS, AFEBRILE, BP STABLE, SPO2 >90% ON 1L NC. PT WITH INCREASED NAUSEA, BELCHING, AND BACK/ HIP PAIN THIS SHIFT. MEDICATED PER EMAR. DRESSING AROUND G TUBE CHANGED, SITE CLEANED THIS SHIFT. TUBE CONTINUES TO LEAK A MODERATE AMOUNT OF GASTRIC CONTENT. FLAHERTY DRAINING DARK URINE TO GRAVITY. PT IS NOW RESTING QUIETLY IN BED, CALL LIGHT WITHIN REACH, BREATHING EVEN AND UNLABORED.
[2024-05-14 07:20] VITALS: BP 144/77
[2024-05-14] MEDS ORDERED: Fluconazole 100 MG Tab PO SCH (09:00)
--- NOTE | 2024-05-14 10:15 | NUR ---
Spiritual care visit conducted. Patient is lying in bed and asleep. I visit with pt's SO, Fito, just outside the pt's rm. Fito tells me about the visit with the Hospitalist and the test they may perform to rule out cancer possibilities. Fito talks about his good experience with [facility] and the noticeable improvements in care and expertise. He voices his trust in the medical team and also his need for prayer. I gladly provided prayer in the hallway for him and the patient. He showed signs of being encouraged and having greater peace.
[2024-05-14 11:36] VITALS: BP 152/81
[2024-05-14 16:25] VITALS: BP 165/92
--- NOTE | 2024-05-14 16:40 | NUR ---
MET WITH PATIENTS MEG. HE REPORTED THAT SHE WAS VERY TIRED TODAY AND DISCUSSED HER NEW PAIN MEDICATION. PROVIDED THERAPUTIC CONVERSATION. EXPRESSED THAT NEFTALI HAS HAD A LOT OF MEDICAL COMPLICATIONS OVER THE LAST SEVERAL YEARS. PC WILL CONTINUE TO PROVIDE SUPPORT
--- NOTE | 2024-05-14 17:56 | NUR ---
SHIFT SUMMARY PT A/OX2, MOANS AND YELLS OUT FOR HELP. PT ENDORSED PAIN BUT IS UNABLE TO DESCRIBE THE PAIN. PAIN TREATED PER EMAR. VSS THROUGHOUT SHIFT WITH O2 SATS IN THE 90'S ON 1-3L NC. PT DID NOT ENDORSE CHEST PAIN/PRESSURE THROUGHOUT SHIFT. PT DID NOT ENDORSE SOB/DYSPNEA THROUGHOUT SHIFT. PT J TUBE DRESSING CHANGED THIS SHIFT ONCE. AT BEDSIDE FOR MOST OF SHIFT AND UPDATED THAT IR HAS BEEN CONSULTED. FLAHERTY REMAINED IN PLACE DRAINING TO GRAVITY.
[2024-05-14 20:00] VITALS: BP 166/83
[2024-05-14] MEDS ORDERED: Fluconazole 100 MG Tab PO ONE ×2 (20:35→20:55)
[2024-05-15] VITALS (8 sets, daily range): BP systolic 128–160; BP diastolic 72–93
[2024-05-15 06:00] LABS: Hematocrit 34.8 % (33.0-51.0); Hemoglobin 11.5 g/dL (11.5-16.0); Mean Corpuscular HGB 31.4 pg (26.0-34.0); Mean Corpuscular Volume 95 fL (80-100); Mean Platelet Volume 9.7 fL (9.1-12.4); Platelet Count 329 K/mm3 (150-400); RDW Coefficient Variation 18.3 % (11.7-14.2); RDW Standard Deviation 64.1 fL (35.1-46.3); Red Blood Cell Count 3.66 M/mm3 (3.80-5.20); White Blood Cell Count 19.51 K/mm3 (4.00-11.30)
[2024-05-15 06:30] LABS: Albumin, Blood 1.7 g/dL (3.4-5.0); Albumin/Globulin Ratio 0.4 (0.8-1.8); Bilirubin, Total 0.6 mg/dL (0.1-1.0); Bun/Creatinine Ratio 21.5 (12.0-20.0); Calcium, Blood 8.7 mg/dL (8.5-10.1); Creatinine, Blood 0.6 mg/dL (0.40-1.00); Globulin, Blood 4.5 g/dL (2.2-4.0); Potassium, Blood 3.4 mmol/L (3.5-5.5); Total Protein, Blood 6.2 g/dL (6.4-8.2)
--- NOTE | 2024-05-15 06:30 | NUR ---
SHIFT SUMMARY PT A&O X1-2; CONVERSING HOWEVER ANSWERS ARE SHORT AND RESPONSES ARE SLOWED. VSS; SBP 150'S, AFEBRILE, SB WITH RATE IN HIGH 50'S, SPO2 94 - 97% ON 2 LPM. NO ACUTE EVENTS OVERNIGHT. PT TOLERATING WATER INTAKE WELL AND ASKING FOR WATER MORE. NO EVENTS OF NAUSEA/VOMITTING. ORAL CARE COMPLETED. REPOSITIONING Q2 OR PRN. J TUBE CONTINUES TO LEAK PREVIOUS. FLAHERTY IN PLACE AND DRAINING TO GRAVITY; DARK YELLOW URINE. NO BM THIS SHIFT. ABX PER EMAR. PT C/O OF PAIN ON AND OFF T/O SHIFT. MEDICATION PER EMAR WITH GOOD RELIEF. WILL UPDATE ONCOMING RN.
[2024-05-15 06:34] LABS: BAND PERCENT MAN 2 % (0-8); BASOPHILS PERCENT MAN 0 % (0-2); EOSINOPHILS PERCENT MAN 0 % (0-6); LYMPHOCYTES ABSOLUTE MAN 1.17 K/mm3 (0.84-5.20); LYMPHOCYTES PERCENT MAN 6 % (21-46); METAMYELOCYTE ABSOLUTE MAN 0.39 K/mm3 (0.00-0.00); METAMYELOCYTE PERCENT MAN 2 % (0-0); MONOCYTES ABSOLUTE MAN 0.97 K/mm3 (0.16-1.47); MONOCYTES PERCENT MAN 5 % (4-13); MYELOCYTE ABSOLUTE MAN 0.19 K/mm3 (0.00-0.00); MYELOCYTE PERCENT MAN 1 % (0-0); NEUTROPHILS ABSOLUTE MAN 16.77 K/mm3 (1.96-9.15); SEG NEUTROPHILS PERCENT MAN 84 % (41-73); TOTAL CELLS COUNTED 100
--- NOTE | 2024-05-15 10:18 | NUR ---
ASSUMPTION OF CARE PT RESTING IN HOSPITAL BED, DROWSY, BUT AROUSES TO VERBAL STIMULI. PT IS ORIENTED TO SELF ONLY. SPOUSE STATES THIS IS HOW SHE HAS BEEN SINCE HOSPITALIZATION, HE BELIEVES RELATED TO HER INFECTION, BUT STATES SHE IS ORIENTED AT BASELINE. MINITOR SHOWS SINUS BOO WITH HR IN THE 50'S, BP STABLE. PT DENIES CHEST PAIN. PT ON 2L PER NC WITH SPO2 95-97%, DENIES SHORTNESS OF BREATH. PT TOLERATING PO INTAKE, SIPS OF WATER, SWALLOWS PILLS WHOLE ONE AT A TIME. FLAHERTY IN PLACE WITH DARK YELLOW OUTPUT. DRESSING TO LLQ J TUBE INTACT WITH MINIMAL DRAINAGE, PLAN TO CHANGE THIS SHIFT.
[2024-05-15] MEDS ORDERED: MetroNIDAZOLE 500MG/NS 100 ml 100 ML IV SCH (16:30)
[2024-05-15] MEDS ORDERED: Cefepime HCl 2,000 MG in NS 100 ML IV SCH (17:00)
--- NOTE | 2024-05-15 17:18 | NUR ---
SHIFT SUMMARY NO ACUTE EVENTS THIS SHIFT. PT REMAINS ORIENTED X1, MORE ALERT THIS AFTERNOON. VITALS REMAIN STABLE, PT REMAINS ON 2L O2 PER NC. DRESSING CHANGE TO PTS JTUBE SITE THIS SHIFT, CONTINUES TO HAVE MODERATE BILE OUTPUT AROUND TUBE. DISCUSSED WITH DR MEDINA WHO REVIEWED PTS CT SCAN. DR MEDINA STATED LONG J TUBE WAS ABLE TO BE FLUSHED THEN TUBE FEED COULD BE STARTED PT HAS VERY POOR APPETITE AND LITTLE PO INTAKE. TUBE FEED STARTED AT 25ML/HR WITH Q4H 50ML FREE WATER FLUSH, THIS WILL BE CHANGED AND MANAGED BY DIETICIANS ONCE THEY ARE AVAILBLE TO CONSULT WITH PATIENT. PT DOES TOLERATE SIPS OF PO FLUIDS AND SWALLOWS PILLS WHOLE, ONE AT A TIME. FLAHERTY REMAINS IN PLACE, LITTLE OUTPUT THIS SHIFT.
[2024-05-16 04:06] VITALS: BP 161/79
[2024-05-16 04:30] LABS: BASOPHILS ABSOLUTE AUTO 0.06 K/mm3 (0.00-0.23); BASOPHILS PERCENT AUTO 0 % (0-2); EOSINOPHILS ABSOLUTE AUTO 0.07 K/mm3 (0.00-0.68); EOSINOPHILS PERCENT AUTO 0 % (0-6); Hematocrit 34.4 % (33.0-51.0); Hemoglobin 11.3 g/dL (11.5-16.0); IMMATURE GRAN ABSOLUTE AUTO 0.74 K/mm3 (0.00-0.10); IMMATURE GRAN PERCENT AUTO 5 % (0-1); LYMPHOCYTES ABSOLUTE AUTO 0.95 K/mm3 (0.84-5.20); LYMPHOCYTES PERCENT AUTO 6 % (21-46); MONOCYTES ABSOLUTE AUTO 0.64 K/mm3 (0.16-1.47); MONOCYTES PERCENT AUTO 4 % (4-13); Mean Corpuscular HGB 30.9 pg (26.0-34.0); Mean Corpuscular HGB Conc 32.8 g/dL (31.5-36.5); Mean Corpuscular Volume 94 fL (80-100); Mean Platelet Volume 9.3 fL (9.1-12.4); NEUTROPHILS PERCENT AUTO 85 % (41-73); Platelet Count 300 K/mm3 (150-400); RDW Standard Deviation 62.9 fL (35.1-46.3); Red Blood Cell Count 3.66 M/mm3 (3.80-5.20); White Blood Cell Count 16.56 K/mm3 (4.00-11.30)
--- NOTE | 2024-05-16 04:43 | NUR ---
SHIFT SUMMARY ASSUMED CARE OF PT AT 1900. PT LETHARGIC, CONFUSED AND SLOW TO ANSWER, ORIENTED TO SELF AND LOCATION. VSS AND PT CURRENTLY SINUS BOO. FLAHERTY CATHETER CARE COMPLETED, BELOW BLADDER AND NO LONGER LEAKING. J TUBE PRESENTED WITH PURULENT DRAINAGE AND SKIN BREAKDOWN AROUND SITE. SITE CLEANED AND DRESSING CHANGED.
[2024-05-16 04:49] LABS: Albumin, Blood 1.6 g/dL (3.4-5.0); Albumin/Globulin Ratio 0.4 (0.8-1.8); Bilirubin, Total 0.5 mg/dL (0.1-1.0); Bun/Creatinine Ratio 16.3 (12.0-20.0); Calcium, Blood 8.1 mg/dL (8.5-10.1); Creatinine, Blood 0.55 mg/dL (0.40-1.00); Globulin, Blood 4.2 g/dL (2.2-4.0); Potassium, Blood 3.3 mmol/L (3.5-5.5); Total Protein, Blood 5.8 g/dL (6.4-8.2)
[2024-05-16 08:36] VITALS: BP 153/87
--- NOTE | 2024-05-16 09:31 | NUR ---
FEEDING BAG JEVITY AT 80ML'S, PUT A NEW BOTTLE OF JEVITY IN AND CURRENTLY AT 310MLS'S IN FEEDING BAG.
--- NOTE | 2024-05-16 13:37 | NUR ---
TRANSFER NOTE: CALLED AND GIVEN REPORT TO NURSE LEX. PT A&0X2 AND KNOWS SELF & PLACE. OXYGEN SATURATION >90% ON 2LITERS. PT WAS TAKEN VIA BED BY PCU PATIENT IMPREGNATOR AND DRIER HELPER'S. CHART & PERSONAL BELONGINGS WERE TAKEN WITH HER. TUBE FEEDING JEVITY EXTRAS SENT WITH PATIENT WELL.
[2024-05-16] MEDS ORDERED: Potassium Chl 20MEQ/Water100ML 100 ML IV SCH (16:00)
[2024-05-16 16:49] VITALS: BP 170/83
--- NOTE | 2024-05-16 18:48 | NUR ---
SHIFT SUMMARY PT TRANSFERED FROM [facility] THIS SHIFT. PT IS A&O X1-2 AND ASSIXT TIMES 2 AND BEDREST. PT IS WHEELCHAIR BOUND AT BASELINE. PT HAS JTUBE AND RECEIVING CONT FEEDING AND FLUSHED WITH 50ML WATER Q4HR. PT JTUBE SITE NOTED TO HAVE YELLOW/GREENISH DRAINAGE CLEAN WITH WOUNDS CLEANSER AND APPLIED NEW DSG. AREA NOTED TO BE RED AND EXCORATED. PT HAS VOICED C/P ABD PAIN THIS SHIFT MEDICATED PER EMAR. FAMILY PRESENT AT BEDSIDE ON AND OFF THROUGHOUT THIS SHIFT.
[2024-05-16 20:27] VITALS: BP 153/84
[2024-05-17 05:22] LABS: BASOPHILS ABSOLUTE AUTO 0.06 K/mm3 (0.00-0.23); BASOPHILS PERCENT AUTO 0 % (0-2); EOSINOPHILS ABSOLUTE AUTO 0.05 K/mm3 (0.00-0.68); EOSINOPHILS PERCENT AUTO 0 % (0-6); Hematocrit 35.1 % (33.0-51.0); Hemoglobin 11.8 g/dL (11.5-16.0); IMMATURE GRAN ABSOLUTE AUTO 0.45 K/mm3 (0.00-0.10); IMMATURE GRAN PERCENT AUTO 3 % (0-1); LYMPHOCYTES ABSOLUTE AUTO 1.19 K/mm3 (0.84-5.20); LYMPHOCYTES PERCENT AUTO 7 % (21-46); MONOCYTES ABSOLUTE AUTO 0.71 K/mm3 (0.16-1.47); MONOCYTES PERCENT AUTO 4 % (4-13); Mean Corpuscular HGB 31.6 pg (26.0-34.0); Mean Corpuscular HGB Conc 33.6 g/dL (31.5-36.5); Mean Corpuscular Volume 94 fL (80-100); Mean Platelet Volume 9.3 fL (9.1-12.4); NEUTROPHILS ABSOLUTE AUTO 15.53 K/mm3 (1.96-9.15); NEUTROPHILS PERCENT AUTO 86 % (41-73); Platelet Count 323 K/mm3 (150-400); RDW Coefficient Variation 17.8 % (11.7-14.2); RDW Standard Deviation 61.5 fL (35.1-46.3); Red Blood Cell Count 3.73 M/mm3 (3.80-5.20); White Blood Cell Count 17.99 K/mm3 (4.00-11.30)
[2024-05-17 05:40] VITALS: BP 156/76
[2024-05-17 06:14] LABS: Albumin, Blood 1.7 g/dL (3.4-5.0); Albumin/Globulin Ratio 0.4 (0.8-1.8); Bilirubin, Total 0.5 mg/dL (0.1-1.0); Bun/Creatinine Ratio 13.8 (12.0-20.0); Calcium, Blood 8.3 mg/dL (8.5-10.1); Creatinine, Blood 0.51 mg/dL (0.40-1.00); Globulin, Blood 4.8 g/dL (2.2-4.0); Potassium, Blood 3.8 mmol/L (3.5-5.5); Total Protein, Blood 6.5 g/dL (6.4-8.2)
--- NOTE | 2024-05-17 06:23 | NUR ---
SHIFT SUMMARY NOC PT A/O TO SELF AND FAMILY. LETHARGIC AND COOPERATIVE WITH CARE. VSS. Q6H CBG 130, . J TUBE IN PLACE WITH YELLOW/GREEN PURULENT DRAINAGE LEAKING OUT, SPLIT GAUZE WITH SPLIT EXUDRY PADS HELD IN PLACE WITH MEDIPORE TAPE ON 4 CORNERS TO ABSORB DRAINAGE. PT IS QUITE PAINFUL AT J TUBE SITE WITH RED MACERATION AT AND AROUND SITE. JEVITY 1.2 CONTINOUS TUBE FEEDING INFUSING @ 20 ML/HR WITH 50 ML FLUSH Q4H. POTASSIUM 3.8 TODAY AFTER GETTING REPLACEMENT YESTERDAY. THERE IS A POWERGLIDE IN JASON THAT DRAWS. FLAHERTY IN PLACE PATENT AND DRAINING YELLOW URINE TO GRAVITY. ON HUMIDIFIED O2 1L/NC SPO2 >92%. ON TELE SINUS RHYTHM/BBB 70 BPM. PT ABD PAIN BEING MANAGED PER EMAR. PT CURRENTLY RESTING WITH BED IN LOWEST POSITION, AND CALL LIGHT WITHIN REACH.
[2024-05-17 08:08] VITALS: BP 148/89
--- NOTE | 2024-05-17 09:24 | NUR ---
TELEPHONE ORDERS MD NOTIFIED THAT PATIENT'S FLAHERTY CATHETER IS LEAKING AND REQUESTED TO DISCONTINUE AND REMOVE FLAHERTY. MD AGREEABLE, NEW ORDERS TO DISCONTINUE FLAHERTY AND START PATIENT ON VOIDING TRIAL.
[2024-05-17] MEDS ORDERED: Magnesium Hydroxide Conc 10 ML UDC PT PRN (14:25)
[2024-05-17] MEDS ORDERED: Bisacodyl 10 MG Supp PR PRN (14:25)
[2024-05-17] MEDS ORDERED: Docusate Sodium 100 MG UDC PT PRN (14:25)
[2024-05-17 15:10] VITALS: BP 156/89
--- NOTE | 2024-05-17 16:00 | NUR ---
Spiritual care visit conducted. Patient is slepping and her spouse, Fito, is bedside. He tells me about the events of the weekend, his emotional ups and downs and the plan of care going forward. Fito asks questions of a theological nature which opened up great discussion centered around his beliefs. We also explored his coping skills and sources of meaning and purpose. I provided prayer in which the patient awakened for and had a good result for Fito his . I will continue to remain available
[2024-05-17 16:15] VITALS: BP 161/83
--- NOTE | 2024-05-17 18:52 | NUR ---
SHIFT SUMMARY PATIETN A/OX1-2 THIS SHIFT, LETHARGIC. AT BEDSIDE ALL SHIFT. FLAHERTY CATHETR REMOVED THIS AFTERNOON, PATIENT VOIDING APPROPRIATELY. INCONTINENT OF URINE WITH PUREWICK IN PLACE. PATIENT WEANED OFF OF SUPPLEMENTAL OXYGEN AND SPO2 WNL ON ROOM AIR. DRESSING TO J TUBE SITE, CLEAN/DRY/INTACT. TUBE FEEDING ORDER CHANGED THIS EVENING, PATIENT TOLERATING WELL AT THIS TIME. RATE 50ML/HR, TWOCAL FEED, q2 HOUR 125ML FLUSH. TELEMTRY IN PLACE, NO EVENTS NOTED THIS SHIFT. CONTINUES WITH Q2 HOUR TURN. NO OTHER CONCERNS AT THIS TIME.
--- NOTE | 2024-05-17 19:28 | NUR ---
STATES PATIENT HAS NOT HAD BM IN 7-10 DAYS. PATIENT'S STATES "SHE'S NOT AN EVERY DAY GOER ANYWAY". PRNS GIVEN PER MAR, NOC NURSE INFORMED. DISCUSSED IF MEDICATION INEFFECTIVE WILL ESCALATE.
[2024-05-17 19:31] VITALS: BP 163/86
[2024-05-17] MEDS ORDERED: NS 250 ML IV PRN (22:50)
--- NOTE | 2024-05-18 05:04 | NUR ---
SHIFT SUMMARY PT IS A&OX2-3, ABLE TO MAKE HER NEEDS KNOWN. PT ABLE TO ANSWER CLOSE-ENDED QUESTIONS. OCCATIONALLY, PT YELLING "HELP!", AND "HURTS!." PT APPEARS TO BE IN MODERATE-SEVERE PAIN, PER FACE SCALE 8/10. MEDICATED WITH DIALUDID IV ORDERED, X3 DURING THIS SHIFT. PUREWICK IN PLACE (FLAHERTY REMOVED ON PREVIOUS SHIFT,) DRAINING WELL TEA COLOR URINE. @HS UNTIL MIDNIGHT, BY THE BEDSIDE. J-TUBE FEEDING INFUSING WITH FLUSHES WITHOUT ANY ISSUES T/O THIS SHIFT. J-TUBE INSERTION SITE SMALL AMOUNT OF DRAINAGE. DRESSING CHANGED @0505. HOB>45 DEGREES. PT UNABLE TO ASSIST ON TURNING, UE'S FLACCID, COOL FOR THE TOUCH. PT APPEARS WITHDRAWN, AND SOME AH NOTED. NO ACUTE EVENTS/DISTRESS NOTED/REPORTED DURING THIS SHIFT. BED AT THE LOWEST POSITION, CALL LIGHT WITHIN REACH.
[2024-05-18 05:20] VITALS: BP 154/90
[2024-05-18 07:42] VITALS: BP 162/90
[2024-05-18] MEDS ORDERED: Cefepime 2000 mg Vial ONE (08:12)
[2024-05-18 08:22] LABS: BASOPHILS ABSOLUTE AUTO 0.06 K/mm3 (0.00-0.23); BASOPHILS PERCENT AUTO 0 % (0-2); EOSINOPHILS ABSOLUTE AUTO 0.04 K/mm3 (0.00-0.68); EOSINOPHILS PERCENT AUTO 0 % (0-6); Hematocrit 36.9 % (33.0-51.0); IMMATURE GRAN ABSOLUTE AUTO 0.39 K/mm3 (0.00-0.10); IMMATURE GRAN PERCENT AUTO 2 % (0-1); LYMPHOCYTES ABSOLUTE AUTO 1.42 K/mm3 (0.84-5.20); LYMPHOCYTES PERCENT AUTO 9 % (21-46); MONOCYTES ABSOLUTE AUTO 0.79 K/mm3 (0.16-1.47); MONOCYTES PERCENT AUTO 5 % (4-13); Mean Corpuscular HGB 30.6 pg (26.0-34.0); Mean Corpuscular HGB Conc 32.5 g/dL (31.5-36.5); Mean Corpuscular Volume 94 fL (80-100); Mean Platelet Volume 9.2 fL (9.1-12.4); NEUTROPHILS ABSOLUTE AUTO 13.79 K/mm3 (1.96-9.15); NEUTROPHILS PERCENT AUTO 84 % (41-73); Platelet Count 342 K/mm3 (150-400); RDW Coefficient Variation 17.9 % (11.7-14.2); RDW Standard Deviation 61.7 fL (35.1-46.3); Red Blood Cell Count 3.92 M/mm3 (3.80-5.20); White Blood Cell Count 16.49 K/mm3 (4.00-11.30)
[2024-05-18 08:42] LABS: Albumin, Blood 1.8 g/dL (3.4-5.0); Albumin/Globulin Ratio 0.3 (0.8-1.8); Bilirubin, Total 0.4 mg/dL (0.1-1.0); Bun/Creatinine Ratio 17.4 (12.0-20.0); Calcium, Blood 8.3 mg/dL (8.5-10.1); Creatinine, Blood 0.52 mg/dL (0.40-1.00); Globulin, Blood 5.3 g/dL (2.2-4.0); Total Protein, Blood 7.1 g/dL (6.4-8.2)
--- NOTE | 2024-05-18 12:12 | NUR ---
TELEPHONE ORDERS CALLED DR. WILLIAMSON TO INFORM HIM OF PATIENT'S BOWEL MOVEMENT STATUS. PER PATIENT'S PATIENT WIHTOUT BM FOR 7-10 DAYS. PRNS GIVEN YESTERDAY INEFFECTIVE. DULCOLAX SUPPOSITORY GIVEN LATE THIS MORNING, SO FAR INEFFECTIVE. MD AWARE. , MEG, CALLED THIS AFTERNOON STATING [facility] HAS CALLED TO SCHEDULE PATIENT FOR ENDOSCOPY TO SEE IF PATIENT STILL IN NEED OF J TUBE. DR. WILLIAMSON WAS GIVEN DR. RODRIGUES FROM [facility] PHONE NUMBER TO CALL. DR. WILLIAMSON ALSO INFORMED THAT PATIENT COMPLAINING OF NAUSEA AND NOT TOLERATING INCREASED RATE OF TUBE FEED. TELEPHONE ORDERS RECIEVED TO DECREASE RATE BACK TO 20ML/HR. PRN GIVEN FOR NAUSEA AND TUBE FEED HELD FOR 1 HOUR AND WILL RESTART AT LOWER RATE. WOUND CARE ORDERS ALSO RECIEVED FOR J TUBE SITE AND SKIN MACERATION.
[2024-05-18] MEDS ORDERED: Polyethylene Glycol 3350 17 gm PO PRN (13:45)
[2024-05-18 16:04] VITALS: BP 151/93
[2024-05-18 16:05] VITALS: BP 155/85
--- NOTE | 2024-05-18 16:10 | NUR ---
[facility]. Patient's spouse, Fito, stops me in the hallway and tells me about his health issues and his upcoming surgery and that he came into sign for approval of the patient's upcoming procedure. He states that he feels very good about having a new tube placed and for an endoscopy to be performed. I provided encouragemnet, therapeutic lsitening and a calming. Fito responded well and showed signs of reduced stress.
--- NOTE | 2024-05-18 19:20 | NUR ---
SHIFT SUMMARY PATIENT A/OX1. PUREWICK IN PLACE. J TUBE REPLACED THIS EVENING. PATIENT COMPLAINING OF NAUSEA THIS AFTERNOON, TUBE FEED HELD FOR 1 HOUR. MD NOTIFIED ADN ORDER CHANGED TO DECREASE RATE TO 20ML/HR. PATIENT TOLERATING WELL. NOTED TO HAVE GENERALZIED PAIN, PRN AND SCHEDULED MEDICATIONS PROVIDED PER NOV. NO BOWEL MOVEMENT TODAY DESPITE MULTIPLE PRNS GIVEN YESTERDAY AND TODAY, MD NOTIFIED. MIRALAX ORDER SCHEDULED BID FROM DR. BUITRAGO. PLAN TO HAVE ENDOSCOPY TOMORROW. PATIENT NPO AT MIDNIGHT AND TUBE FEED TO BE HELD AT MIDNIGHT TONIGHT FOR PROCEDURE, NOC NURSE NOTIFIED. WOUND CARE RECIEVED FOR J TUBE SITE. NO OTHER CONCERNS NOTED.
[2024-05-18 19:54] VITALS: BP 149/86
[2024-05-18] MEDS ORDERED: Pantoprazole Sodium 40 MG Injection IV SCH (21:00)
[2024-05-18] MEDS ORDERED: Polyethylene Glycol 3350 17 gm PO SCH (21:00)
--- NOTE | 2024-05-19 02:41 | NUR ---
SHIFT SUMMARY PT IS ALERT, ORIENTED TO SELF AND PERSON. @HS, BY THE BEDSIDE. PT IS NPO D/T SCHEDULED ENDOSCOPY THIS AM BY . PT'S FEEDING HAS BEEN STOPPED AT MIDNIGHT (J-TUBE) FOR THE PROCEDURE. ABX INFUSED ORDERED. DIALUDID X1 FOR PAIN (FACE SCALE 9/10) EFFECTIVE. PT'S REPORTED TO THIS CURBING STONECUTTER >1WK SINCE LAST BM. DURING THIS SHIFT PT HAD A XXL BM, LOOSE&HARD STOOL MIX. NO ACUTE EVENTS DURING THIS SHIFT, BED AT THE LOWEST POSITION, CALL LIGHT WITHIN REACH. [id number]. ATTENDS IN PLACE, PUREWIC REMOVED D/T LOOSE STOOL. MIDNIGHT B. TELE: SR@73 WITH BBB.
[2024-05-19 06:05] VITALS: BP 146/87
[2024-05-19 07:14] LABS: BASOPHILS ABSOLUTE AUTO 0.05 K/mm3 (0.00-0.23); BASOPHILS PERCENT AUTO 0 % (0-2); EOSINOPHILS ABSOLUTE AUTO 0.02 K/mm3 (0.00-0.68); EOSINOPHILS PERCENT AUTO 0 % (0-6); Hematocrit 36.5 % (33.0-51.0); Hemoglobin 12.1 g/dL (11.5-16.0); IMMATURE GRAN ABSOLUTE AUTO 0.15 K/mm3 (0.00-0.10); IMMATURE GRAN PERCENT AUTO 1 % (0-1); LYMPHOCYTES ABSOLUTE AUTO 1.37 K/mm3 (0.84-5.20); LYMPHOCYTES PERCENT AUTO 9 % (21-46); MONOCYTES ABSOLUTE AUTO 0.83 K/mm3 (0.16-1.47); MONOCYTES PERCENT AUTO 6 % (4-13); Mean Corpuscular HGB 31.3 pg (26.0-34.0); Mean Corpuscular HGB Conc 33.2 g/dL (31.5-36.5); Mean Corpuscular Volume 95 fL (80-100); Mean Platelet Volume 9.3 fL (9.1-12.4); NEUTROPHILS ABSOLUTE AUTO 12.13 K/mm3 (1.96-9.15); NEUTROPHILS PERCENT AUTO 84 % (41-73); Platelet Count 354 K/mm3 (150-400); RDW Coefficient Variation 17.7 % (11.7-14.2); RDW Standard Deviation 61.8 fL (35.1-46.3); Red Blood Cell Count 3.86 M/mm3 (3.80-5.20); White Blood Cell Count 14.55 K/mm3 (4.00-11.30)
[2024-05-19 07:35] VITALS: BP 154/88
[2024-05-19 07:40] LABS: Albumin, Blood 1.8 g/dL (3.4-5.0); Albumin/Globulin Ratio 0.3 (0.8-1.8); Bilirubin, Total 0.5 mg/dL (0.1-1.0); Creatinine, Blood 0.53 mg/dL (0.40-1.00); Globulin, Blood 5.2 g/dL (2.2-4.0)
[2024-05-19] MEDS ORDERED: Losartan Potassium 25 MG Tab PO SCH (09:00)
[2024-05-19] MEDS ORDERED: Lidocaine HCl 4% 5 ML SDA ONE (11:53)
[2024-05-19 12:00] VITALS: BP 165/83
[2024-05-19] MEDS ORDERED: Lactated Ringer's 1,000 ML IV SCH (12:05)
--- NOTE | 2024-05-19 12:11 | NUR ---
History, Chart, Medications and Allergies reviewed before start of procedure. Pre-Op teaching done. Patient confirms NPO status and agrees with scheduled surgery. Spouse at bedside, consulting with physicians, providing patient information as patient has been primarily non-verbal today per spouse & medical floor rn.
--- NOTE | 2024-05-19 12:25 | NUR ---
05/19/24 1225 Andrei Johnston History, Chart, Medications and Allergies reviewed before start of procedure.MONITOR INTACT WITH CONTINUOUS PULSE OXIMETRY, CONTINUOUS END TITAL CO2, AND INTERMITTENT BLOOD PRESSURE.3-LEAD EKG REVIEWED WITH PHYSICIAN PRIOR TO START OF PROCEDURE.O2 VIA POM INTACT THROUGHOUT SEDATION/PROCEDURE.See Anesthesia record.
--- NOTE | 2024-05-19 15:08 | NUR ---
Spiritual care visit conducted. Patient is sound asleep, snoring loudly. Patient's spouse, Fito is bedside. We talk in normal volumes and patient doesn't awaken. Fito shares about the good report from the Endoscopy and j tube replacement. He then shares about how long and challenging the medical issues with Janelle have been. He states that they both have had moments when it has become overwhelming. He refers back to his [employer] anup for strength and welcomes for prayer. I gladly provided prayer Fito voices great appreciation for the visit, the encouragement and the prayer. I will cotninue to remian available to patient and family.
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
[2024-05-19 15:43] VITALS: BP 150/73
[2024-05-19] MEDS ORDERED: Propofol 10mg/ml 20 ml Vial (Procedural) IV ONE (17:35)
[2024-05-19] MEDS ORDERED: Etomidate 2MG / ML 10ML Vial IV ONE (17:35)
--- NOTE | 2024-05-19 19:22 | NUR ---
SHIFT SUMMARY PATIENT REFUSING TO ANSWER ORIENTATION QUESTIONS THIS SHIFT BUT ANSWERS YES AND NO QUESTIONS. USING ONE WORKD ANSWERS. COMPLAINING OF PAIN, MEDICATED PER MAR. PATIENT WITH ENDOSCOPY TODAY, RETURNED TO ROOM DROWSY BUT ANSWERING QUESTIONS. DRESSINGS TO L PIV AND R POWERGLIDE CHANGED TODAY. WOUNDCARE PROVIDED TO J TUBE SITE. ABDOMINAL DRESSINGS APPLIED X2, MODERATE AMOUNT OF GREEN DRAINAGE NOTED THROUGHOUT SHIFT. DRESSING CHANGED X3. MD AWARE OF LEAKAGE. PUREWICK IN PLACE. PATIENT WITH LARGE LIQUID BOWEL MOVEMENT THIS AM. TELEMETRY IN PLACE, NO CONCERNS NOTED TODAY. CONTINUES WITH TUBE FEED AT 20ML/HR AND Q2HR FLUSHES 125ML. MEG AT BEDSIDE MAJORITY OF SHIFT. NO OTHER CONCERNS AT THIS TIME.
[2024-05-19 20:20] VITALS: BP 148/82
[2024-05-20 03:41] VITALS: BP 152/76
[2024-05-20 06:16] LABS: BASOPHILS ABSOLUTE AUTO 0.05 K/mm3 (0.00-0.23); BASOPHILS PERCENT AUTO 0 % (0-2); EOSINOPHILS ABSOLUTE AUTO 0.02 K/mm3 (0.00-0.68); EOSINOPHILS PERCENT AUTO 0 % (0-6); Hematocrit 35.7 % (33.0-51.0); Hemoglobin 11.8 g/dL (11.5-16.0); IMMATURE GRAN ABSOLUTE AUTO 0.15 K/mm3 (0.00-0.10); IMMATURE GRAN PERCENT AUTO 1 % (0-1); LYMPHOCYTES ABSOLUTE AUTO 1.75 K/mm3 (0.84-5.20); LYMPHOCYTES PERCENT AUTO 12 % (21-46); MONOCYTES ABSOLUTE AUTO 0.87 K/mm3 (0.16-1.47); MONOCYTES PERCENT AUTO 6 % (4-13); Mean Corpuscular HGB 31.1 pg (26.0-34.0); Mean Corpuscular HGB Conc 33.1 g/dL (31.5-36.5); Mean Corpuscular Volume 94 fL (80-100); NEUTROPHILS ABSOLUTE AUTO 11.99 K/mm3 (1.96-9.15); NEUTROPHILS PERCENT AUTO 81 % (41-73); Platelet Count 427 K/mm3 (150-400); RDW Coefficient Variation 17.7 % (11.7-14.2); RDW Standard Deviation 61.5 fL (35.1-46.3); Red Blood Cell Count 3.79 M/mm3 (3.80-5.20); White Blood Cell Count 14.83 K/mm3 (4.00-11.30)
[2024-05-20 06:34] LABS: Albumin, Blood 1.9 g/dL (3.4-5.0); Albumin/Globulin Ratio 0.4 (0.8-1.8); Bilirubin, Total 0.4 mg/dL (0.1-1.0); Bun/Creatinine Ratio 17.1 (12.0-20.0); Calcium, Blood 8.2 mg/dL (8.5-10.1); Creatinine, Blood 0.53 mg/dL (0.40-1.00); Globulin, Blood 5.4 g/dL (2.2-4.0); Potassium, Blood 3.8 mmol/L (3.5-5.5); Total Protein, Blood 7.3 g/dL (6.4-8.2)
--- NOTE | 2024-05-20 06:38 | NUR ---
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 PATIENT DENIED PAIN. PATIENT IS ON A TUBE FEEDING RUNNING AT 20ML/HR AND 125ML FLUSH EVERY 2 HOURS. NOTICED A LEAK AT PATIENT J-TUBE. DRESSING WAS CHANGED.
[2024-05-20 07:55] VITALS: BP 156/101
[2024-05-20] MEDS ORDERED: Azithromycin 500 MG in NS 250 ML IV SCH (15:00)
--- NOTE | 2024-05-20 15:18 | NUR ---
Spiritual care visit conducted. Patient is lying in bed and awake. She states that she has been sick, that she appreciates her family being there for her and that she would welcome prayer. I provided encouragement, levity and prayer. Patient and family responded well and showed signs of an elevated mood.
[2024-05-20 15:59] VITALS: BP 154/91
--- NOTE | 2024-05-20 18:10 | NUR ---
SHIFT SUMMARY PT CONT LEVEL OF CARE WITH NO ACUTE CHANGES NOTED. PT IS A&O TO SELF ONLY AND IS DEPENDENT FOR ALL CARES. PT WAS REPOSITIONED IN BED Q2HR THIS SHIFT. PT REFUSED TO EAT AT MEALS TODAY, BUT CONT JTUBE FEEDS AT 20/HR. PT HAS TAKEN MEDICAITONS PO WITH SIPS OF WATER. FAMILY HAS BEEN AT BEDSIDE OFF AND ON THROUGHOUT THIS SHIFT.
[2024-05-20 19:32] VITALS: BP 153/86
[2024-05-20] MEDS ORDERED: Vancomycin HCL 2,000 MG in NS 500 ML IV ONE (23:15)
[2024-05-21 03:03] VITALS: BP 172/91
[2024-05-21 05:58] VITALS: BP 155/97
[2024-05-21] MEDS ORDERED: Piperacillin/Tazobactam Sod 4.5 GM in NS 100 ML IV SCH (06:00)
--- NOTE | 2024-05-21 06:00 | NUR ---
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 PATIENT IS ON BEDREST, CALL LIGHT IN REACH AND BED AT LOWER POSITION. PATIENT HAS A J TUBE AND HAS A FEEDING RUNNING AT 20ML/HR AND A 125ML FLUSH EVERY 2 HOURS. PATIENT J-TUBE SITE LEAKS AT TIMES AND DRESSING IS CHANGED NEEDED.
[2024-05-21 06:18] LABS: BASOPHILS ABSOLUTE AUTO 0.06 K/mm3 (0.00-0.23); BASOPHILS PERCENT AUTO 1 % (0-2); EOSINOPHILS ABSOLUTE AUTO 0.05 K/mm3 (0.00-0.68); EOSINOPHILS PERCENT AUTO 0 % (0-6); Hematocrit 34.7 % (33.0-51.0); Hemoglobin 11.4 g/dL (11.5-16.0); IMMATURE GRAN PERCENT AUTO 1 % (0-1); LYMPHOCYTES ABSOLUTE AUTO 1.88 K/mm3 (0.84-5.20); LYMPHOCYTES PERCENT AUTO 14 % (21-46); MONOCYTES ABSOLUTE AUTO 0.85 K/mm3 (0.16-1.47); MONOCYTES PERCENT AUTO 7 % (4-13); Mean Corpuscular HGB 31.3 pg (26.0-34.0); Mean Corpuscular HGB Conc 32.9 g/dL (31.5-36.5); Mean Corpuscular Volume 95 fL (80-100); Mean Platelet Volume 9.3 fL (9.1-12.4); NEUTROPHILS PERCENT AUTO 78 % (41-73); Platelet Count 429 K/mm3 (150-400); RDW Coefficient Variation 17.8 % (11.7-14.2); RDW Standard Deviation 61.8 fL (35.1-46.3); Red Blood Cell Count 3.64 M/mm3 (3.80-5.20); White Blood Cell Count 13.14 K/mm3 (4.00-11.30)
[2024-05-21 06:40] LABS: Albumin, Blood 1.9 g/dL (3.4-5.0); Albumin/Globulin Ratio 0.4 (0.8-1.8); Bilirubin, Total 0.4 mg/dL (0.1-1.0); Bun/Creatinine Ratio 16.6 (12.0-20.0); Calcium, Blood 8.5 mg/dL (8.5-10.1); Creatinine, Blood 0.54 mg/dL (0.40-1.00); Globulin, Blood 5.3 g/dL (2.2-4.0); Potassium, Blood 3.9 mmol/L (3.5-5.5); Total Protein, Blood 7.2 g/dL (6.4-8.2)
[2024-05-21 07:37] VITALS: BP 155/98
[2024-05-21] MEDS ORDERED: Furosemide 10 MG / ML 2ML Vial IV SCH ×2 (09:00→18:00)
[2024-05-21] MEDS ORDERED: Vancomycin HCL 1,500 MG in NS 250 ML IV SCH (11:00)
[2024-05-21] MEDS ORDERED: Enoxaparin 40 MG/0.4 ML SYR SC SCH (13:00)
[2024-05-21 15:48] VITALS: BP 172/95
--- NOTE | 2024-05-21 16:06 | NUR ---
SHIFT SUMMARY PT CONT LEVEL OF CARE WITH NO ACUTE CHANGES NOTED. PT CONT TO REMAIN A&O TO SELF ONLY ADN EVERY TWO HR REPOSITION. MEG HAS BEEN AT BEDSIDE THROUGHOUT THIS SHIFT. PT CONT TO REFUSE MEALS AND SUPPLEMENT BUT CONT TO RECEIVE CONT FEEDS AT 20/HR THROUGH A-STAR.
[2024-05-21 17:29] VITALS: BP 146/80
[2024-05-21] MEDS ORDERED: Albumin (Human) 25gm/100ml 100 ML IV SCH (18:00)
[2024-05-21 19:27] VITALS: BP 153/82
[2024-05-21 22:56] LABS: Vancomycin, Trough 27.6 ug/mL (5.0-10.0)
[2024-05-22 02:41] VITALS: BP 169/92
[2024-05-22 06:21] LABS: BASOPHILS ABSOLUTE AUTO 0.08 K/mm3 (0.00-0.23); BASOPHILS PERCENT AUTO 1 % (0-2); EOSINOPHILS ABSOLUTE AUTO 0.05 K/mm3 (0.00-0.68); EOSINOPHILS PERCENT AUTO 0 % (0-6); Hematocrit 34.5 % (33.0-51.0); Hemoglobin 11.3 g/dL (11.5-16.0); IMMATURE GRAN ABSOLUTE AUTO 0.11 K/mm3 (0.00-0.10); IMMATURE GRAN PERCENT AUTO 1 % (0-1); LYMPHOCYTES PERCENT AUTO 15 % (21-46); MONOCYTES ABSOLUTE AUTO 1.01 K/mm3 (0.16-1.47); MONOCYTES PERCENT AUTO 7 % (4-13); Mean Corpuscular HGB Conc 32.8 g/dL (31.5-36.5); Mean Corpuscular Volume 95 fL (80-100); Mean Platelet Volume 8.8 fL (9.1-12.4); NEUTROPHILS ABSOLUTE AUTO 10.56 K/mm3 (1.96-9.15); NEUTROPHILS PERCENT AUTO 76 % (41-73); Platelet Count 477 K/mm3 (150-400); RDW Coefficient Variation 17.7 % (11.7-14.2); RDW Standard Deviation 61.7 fL (35.1-46.3); Red Blood Cell Count 3.64 M/mm3 (3.80-5.20); White Blood Cell Count 13.81 K/mm3 (4.00-11.30)
--- NOTE | 2024-05-22 06:29 | NUR ---
PT STABLE, HTN, TELE RHYTHM SR 70 BPM W/BBB, CBG APPROPRIATE RANGE. VANCO DOSE HELD AFTER TROUGH RESULTED 27.6, ZOSYN ADMINISTERED. PURULENT DRAINAGE CONTINUES TO LEAK AROUND J TUBE INSERTION SITE, CHANGED TWICE DURING SHIFT. TOLERATING CURRENT FEED AND FLUSH RATES. PLAN FOR EGD TODAY.
[2024-05-22 06:44] LABS: Albumin, Blood 2.5 g/dL (3.4-5.0); Albumin/Globulin Ratio 0.5 (0.8-1.8); Bilirubin, Total 0.5 mg/dL (0.1-1.0); Bun/Creatinine Ratio 14.9 (12.0-20.0); C-REACTIVE PROTEIN, EXT RANGE 8.84 mg/dL (0.000-0.300); Calcium, Blood 9.2 mg/dL (8.5-10.1); Creatinine, Blood 0.61 mg/dL (0.40-1.00); Globulin, Blood 5.5 g/dL (2.2-4.0); Magnesium, Blood 2.6 mg/dL (1.6-2.4); Phosphorus, Blood 2.4 mg/dL (2.5-4.9); Potassium, Blood 3.6 mmol/L (3.5-5.5)
[2024-05-22 07:53] VITALS: BP 159/93
[2024-05-22] MEDS ORDERED: Spironolactone 25 MG Tab PO SCH (09:00)
[2024-05-22 11:19] LABS: Vancomycin, Random 17.5 ug/mL
[2024-05-22] MEDS ORDERED: Potassium Chloride 10 Meq Tablet SA PO SCH (12:00)
[2024-05-22] MEDS ORDERED: Vancomycin HCL 1,500 MG in NS 250 ML IV SCH (12:05)
[2024-05-22 16:14] VITALS: BP 149/77
--- NOTE | 2024-05-22 17:42 | NUR ---
SHIFT SUMMARY PATIENT IN BED THIS SHIFT. TOLERATING INCREASE TO FEEDING UP TO 40ML/HR THIS SHIFT. SEVERAL BM THIS SHIFT. INCONTINENT EPISODES OF URINE, PURWICK IN PLACE FOR PART OF THE SHIFT. C/O PAIN, GIVEN APAP WITH MILD RELIEF, MOSTLY COMPLAINS WITH TURNING AND POSITIONING. RED ZOHREH AREA, BARRIER CREAM APPLIED. FEEDING TUBE SITE CLEANED AND REDRESSED. IN ROOM MOST OF DAY SHIFT. PATIENT DECLINING TO TAKE PO FOOD, WILLING TO TAKE PO PILLS. ORIENTED TO SELF ONLY, DENIED KNOWING WHO IS, GIVING ONLY ONE WORD RESPONSES AND SHRUGS. CALL LIGHT IN REACH, BED ALARM ON, CARES ONGOING.
[2024-05-22 19:35] VITALS: BP 160/81
[2024-05-23 02:32] VITALS: BP 154/88
[2024-05-23 05:48] LABS: BASOPHILS ABSOLUTE AUTO 0.07 K/mm3 (0.00-0.23); BASOPHILS PERCENT AUTO 1 % (0-2); EOSINOPHILS ABSOLUTE AUTO 0.07 K/mm3 (0.00-0.68); EOSINOPHILS PERCENT AUTO 1 % (0-6); Hematocrit 33.3 % (33.0-51.0); IMMATURE GRAN ABSOLUTE AUTO 0.06 K/mm3 (0.00-0.10); IMMATURE GRAN PERCENT AUTO 1 % (0-1); LYMPHOCYTES ABSOLUTE AUTO 1.75 K/mm3 (0.84-5.20); LYMPHOCYTES PERCENT AUTO 14 % (21-46); MONOCYTES ABSOLUTE AUTO 0.92 K/mm3 (0.16-1.47); MONOCYTES PERCENT AUTO 7 % (4-13); Mean Corpuscular HGB 31.4 pg (26.0-34.0); Mean Corpuscular Volume 95 fL (80-100); Mean Platelet Volume 8.6 fL (9.1-12.4); NEUTROPHILS PERCENT AUTO 77 % (41-73); Platelet Count 470 K/mm3 (150-400); RDW Coefficient Variation 17.7 % (11.7-14.2); RDW Standard Deviation 61.8 fL (35.1-46.3); White Blood Cell Count 12.37 K/mm3 (4.00-11.30)
[2024-05-23 06:20] LABS: Albumin, Blood 3.2 g/dL (3.4-5.0); Albumin/Globulin Ratio 0.6 (0.8-1.8); Bilirubin, Total 0.5 mg/dL (0.1-1.0); Bun/Creatinine Ratio 19.6 (12.0-20.0); Calcium, Blood 9.1 mg/dL (8.5-10.1); Creatinine, Blood 0.61 mg/dL (0.40-1.00); Globulin, Blood 5.1 g/dL (2.2-4.0); Potassium, Blood 3.9 mmol/L (3.5-5.5); Total Protein, Blood 8.3 g/dL (6.4-8.2)
--- NOTE | 2024-05-23 06:25 | NUR ---
NO ACUTE CHANGES DURING SHIFT. VSS. PT TOLERATING INCREASED TF RATE 40ML/HR. LEAKAGE AROUND J TUBE INSERTION SITE REDUCED. CBG WNL.
[2024-05-23 08:04] VITALS: BP 149/87
[2024-05-23] MEDS ORDERED: NS 100 ML IV ONE (11:56)
[2024-05-23 15:49] VITALS: BP 151/86
--- NOTE | 2024-05-23 18:19 | NUR ---
SHIFT SUMMARY: PATIENT A/OX2-3, PLEASANTLY CONFUSED AND ABLE TO FOLLOW SIMPLE COMMAND. PATIENT DENIES CP/PRESSURE, SOB, N/V AND DIZZINESS. PATIENT TF INCREASED TO 50 MLS/HR, TOLERATING WELL. PATIENT REFUSED ALL MEALS THIS SHIFT. MINIMAL LEAKAGE AROUND J TUBE SITE, DRESSING CHANGED. PATIENT HAD 1 XL LOOSE STOOL, ZOHREH CARE, ATTENDS CHANGED. PATIENT INCONTINENT OF BLADDER, PUREWICK SYSTEM IN PLACED, TOLERATING WELL. PATIENT REPORTS PAIN "ALL OVER", MEDICATED c SCHEDULED AND PRN PAIN MEDS PER EMAR c MOD EFFECT. PATIENT REPOSITIONED T/O SHIFT. VITAL SIGNS REVIEWED. CALL LIGHT REACH. SPOUSE AT BEDSIDE VISITING T/O SHIFT.
[2024-05-23 19:34] VITALS: BP 152/81
[2024-05-24 03:00] VITALS: BP 156/84
[2024-05-24 05:08] LABS: BASOPHILS ABSOLUTE AUTO 0.07 K/mm3 (0.00-0.23); BASOPHILS PERCENT AUTO 1 % (0-2); EOSINOPHILS ABSOLUTE AUTO 0.07 K/mm3 (0.00-0.68); EOSINOPHILS PERCENT AUTO 1 % (0-6); IMMATURE GRAN ABSOLUTE AUTO 0.06 K/mm3 (0.00-0.10); IMMATURE GRAN PERCENT AUTO 1 % (0-1); LYMPHOCYTES ABSOLUTE AUTO 1.91 K/mm3 (0.84-5.20); LYMPHOCYTES PERCENT AUTO 17 % (21-46); MONOCYTES ABSOLUTE AUTO 0.99 K/mm3 (0.16-1.47); MONOCYTES PERCENT AUTO 9 % (4-13); Mean Corpuscular HGB 31.2 pg (26.0-34.0); Mean Corpuscular HGB Conc 32.4 g/dL (31.5-36.5); Mean Corpuscular Volume 96 fL (80-100); Mean Platelet Volume 8.5 fL (9.1-12.4); NEUTROPHILS ABSOLUTE AUTO 8.38 K/mm3 (1.96-9.15); NEUTROPHILS PERCENT AUTO 73 % (41-73); Platelet Count 458 K/mm3 (150-400); RDW Coefficient Variation 17.3 % (11.7-14.2); RDW Standard Deviation 61.1 fL (35.1-46.3); Red Blood Cell Count 3.53 M/mm3 (3.80-5.20); White Blood Cell Count 11.48 K/mm3 (4.00-11.30)
[2024-05-24 05:35] LABS: Albumin, Blood 3.5 g/dL (3.4-5.0); Albumin/Globulin Ratio 0.7 (0.8-1.8); Bilirubin, Total 0.5 mg/dL (0.1-1.0); Bun/Creatinine Ratio 27.2 (12.0-20.0); Calcium, Blood 9.8 mg/dL (8.5-10.1); Creatinine, Blood 0.59 mg/dL (0.40-1.00); Globulin, Blood 5.2 g/dL (2.2-4.0); Potassium, Blood 4.3 mmol/L (3.5-5.5); Total Protein, Blood 8.7 g/dL (6.4-8.2)
--- NOTE | 2024-05-24 06:22 | NUR ---
NO ACUTE CHANGES DURING SHIFT. TF RUNNING 50ML/HR NO NAUSEA NO PAIN. DRAINAGE AT J TUBE INSERTION SITE MINIMAL. PT REPORTS NO PAIN, POSSIBLE SCHEDULED PAIN MEDS CAN BE CHANGED TO PRN. PLAN FOR REPEAT CT SCAN TODAY. ABX ADMINISTERED.
[2024-05-24 07:16] VITALS: BP 130/76
[2024-05-24] MEDS ORDERED: Furosemide 10 MG / ML 2ML Vial IV SCH (09:00)
[2024-05-24] MEDS ORDERED: Vancomycin HCL 1,000 MG in NS 250 ML IV SCH (12:00)
[2024-05-24 16:07] VITALS: BP 147/90
--- NOTE | 2024-05-24 18:07 | NUR ---
SHIFT SUMMARY PATIENT DROWSY T/O SHIFT, ORIENTED TO SELF AND SOMETIMES PLACE. AT BEDSIDE. REFUSED TO TAKE PO MEDS THIS AM. JTUBE FEEDING AT 50ML/HR WITH 125ML FLUSH Q2HRS. TUBE NOTED TO BE CLOGGED AT 24HR BAG/TUBING CHANGE AND HAD TO BE MANUALLY UNPLUGGED WITH FLUSH. SURROUNDING TISSUE INTACT, COVERED WITH HYDROCOLLOID AND SLITTED GAUZE. COMPLAINED OF HEADACHE AND "ALL OVER" PAIN T/O SHIFT, WELL FELT HOT AND COLD ALL DAY BUT AFEBRILE. DENIED CP/PRESSURE OR SOB. LUNG SOUNDS DIM IN BASES. PUREWICK INTACT, GOOD OUTPUT. NO ACUTE CHANGES. ANSWERS QUESTIONS WITH 1-2 WORDS. CURRENTLY SLEEPING. CALL LIGHT WITHIN REACH.
[2024-05-24 19:42] VITALS: BP 156/79
[2024-05-25 02:46] VITALS: BP 147/93
[2024-05-25 05:10] LABS: BASOPHILS ABSOLUTE AUTO 0.09 K/mm3 (0.00-0.23); BASOPHILS PERCENT AUTO 1 % (0-2); EOSINOPHILS ABSOLUTE AUTO 0.07 K/mm3 (0.00-0.68); EOSINOPHILS PERCENT AUTO 1 % (0-6); Hematocrit 33.8 % (33.0-51.0); Hemoglobin 10.9 g/dL (11.5-16.0); IMMATURE GRAN ABSOLUTE AUTO 0.05 K/mm3 (0.00-0.10); IMMATURE GRAN PERCENT AUTO 0 % (0-1); LYMPHOCYTES ABSOLUTE AUTO 2.09 K/mm3 (0.84-5.20); LYMPHOCYTES PERCENT AUTO 19 % (21-46); MONOCYTES ABSOLUTE AUTO 0.92 K/mm3 (0.16-1.47); MONOCYTES PERCENT AUTO 8 % (4-13); Mean Corpuscular HGB 31.1 pg (26.0-34.0); Mean Corpuscular HGB Conc 32.2 g/dL (31.5-36.5); Mean Corpuscular Volume 96 fL (80-100); Mean Platelet Volume 8.5 fL (9.1-12.4); NEUTROPHILS ABSOLUTE AUTO 8.02 K/mm3 (1.96-9.15); NEUTROPHILS PERCENT AUTO 71 % (41-73); Platelet Count 456 K/mm3 (150-400); RDW Coefficient Variation 17.2 % (11.7-14.2); Red Blood Cell Count 3.51 M/mm3 (3.80-5.20); White Blood Cell Count 11.24 K/mm3 (4.00-11.30)
--- NOTE | 2024-05-25 05:29 | NUR ---
SHIFT SUMMARY PT A&O TO SELF, CONFUSED BUT ABLE TO BE REORIENTED. PT SPENT MOST OF SHIFT IN BED WITH EYES CLOSED AND RESPIRATIONS EVEN AND UNLABORED. VSS, NO COMPLAINTS OF CP/PRESSURE OR SOB. PT GETTING TUBE FED AT A RATE OF 50ML/HR WITH A 150 FLUSH Q2 HOURS. PT TOLERATING INTERVENTION WELL. PT RECEIVED SCHEDULED MEDICATIONS. PT REPOSITIONED Q2 HRS. PT LEFT IN A POSITION OF SAFETY WITH FALL PRECAUTIONS IN PLACE AND CALL LIGHT IN REACH.
[2024-05-25 05:52] LABS: Magnesium, Blood 2.3 mg/dL (1.6-2.4)
[2024-05-25 06:00] LABS: Albumin, Blood 3.5 g/dL (3.4-5.0); Albumin/Globulin Ratio 0.7 (0.8-1.8); Bilirubin, Total 0.4 mg/dL (0.1-1.0); Bun/Creatinine Ratio 30.2 (12.0-20.0); C-Reactive Protein, High Sens. 46.6 mg/dL (0.000-3.000); Calcium, Blood 9.4 mg/dL (8.5-10.1); Creatinine, Blood 0.6 mg/dL (0.40-1.00); Globulin, Blood 5.2 g/dL (2.2-4.0); Potassium, Blood 4.5 mmol/L (3.5-5.5); Total Protein, Blood 8.7 g/dL (6.4-8.2)
[2024-05-25 07:52] VITALS: BP 159/105
--- NOTE | 2024-05-25 12:23 | NUR ---
ANSWERS QUESTIONS APPRIATELY, MINIMAL INTERACTION, FLAT EFFECT, CALL LIGHT WITH IN REACH
[2024-05-25 15:50] VITALS: BP 110/73
--- NOTE | 2024-05-25 18:24 | NUR ---
SLOW TO RESPOND, ORIENTED TO SELF AND PERSON, VERY FLAT EFFECT, MAKES NEEDS KNOWN, FRIEND VISITED TODAY, TUBE FEED VIA GTUBE, IV ANTIBIOTICS, COMPLAINED OF BEING HOT/COLD THROUGH OUT THE DAY, PERIWIK INPLACE, REPOSITIONED THROUGH OUT THE DAY, HYPOACTIVE BT, CALL LIGHT WITH IN REACH, WILL RELAY TO PM RN
[2024-05-25 19:33] VITALS: BP 161/88
[2024-05-26] MEDS ORDERED: HYDROcodone 5-APAP 325 TAB PO PRN (02:15)
[2024-05-26] MEDS ORDERED: OxyCODONE 5 mg/Acetamin 325 mg TABLET PO PRN (02:35)
--- NOTE | 2024-05-26 02:57 | NUR ---
PT STATUS I AM BREAKING THE PRIMARY NURSE FOR HIS LUNCH. HE REQUESTED I GET PAIN RX FOR THIS PT. I DID VERIFY WITH PHARMACY THE CORRECT PAIN MEDICATION TO GIVE SHE HAS MANY ALLERGIES. I ASKED THE PT WHAT SHE TAKES AT HOME AND SHE STATED SHE DOES NOT KNOW. I ASKED THE PT ABOUT HER ALLERGIES AND SHE STATED SHE DOES NOT KNOW. I ASKED HER IF SHE WAS IN PAIN RIGHT NOW AND SHE DENIED PAIN TO ME. I HAVE RETURNED THE PAIN MEDICATION AND WILL CONTINUE TO MONITOR.
[2024-05-26 03:38] VITALS: BP 142/87
--- NOTE | 2024-05-26 04:11 | NUR ---
PT RESTING QUIETLY IN BED WITH EYS CLOSED. RESP EVEN AND UNLABORED. LOOSE BM NOTED X2. C/O PAIN NOTED. PT MEDICATED PER ORDERS.
[2024-05-26 06:01] LABS: BASOPHILS ABSOLUTE AUTO 0.07 K/mm3 (0.00-0.23); BASOPHILS PERCENT AUTO 1 % (0-2); EOSINOPHILS ABSOLUTE AUTO 0.08 K/mm3 (0.00-0.68); EOSINOPHILS PERCENT AUTO 1 % (0-6); Hematocrit 33.7 % (33.0-51.0); IMMATURE GRAN ABSOLUTE AUTO 0.06 K/mm3 (0.00-0.10); IMMATURE GRAN PERCENT AUTO 1 % (0-1); LYMPHOCYTES ABSOLUTE AUTO 1.99 K/mm3 (0.84-5.20); LYMPHOCYTES PERCENT AUTO 20 % (21-46); MONOCYTES ABSOLUTE AUTO 0.84 K/mm3 (0.16-1.47); MONOCYTES PERCENT AUTO 8 % (4-13); Mean Corpuscular HGB 31.7 pg (26.0-34.0); Mean Corpuscular HGB Conc 32.6 g/dL (31.5-36.5); Mean Corpuscular Volume 97 fL (80-100); Mean Platelet Volume 8.8 fL (9.1-12.4); NEUTROPHILS ABSOLUTE AUTO 7.13 K/mm3 (1.96-9.15); NEUTROPHILS PERCENT AUTO 70 % (41-73); Platelet Count 430 K/mm3 (150-400); RDW Coefficient Variation 17.1 % (11.7-14.2); RDW Standard Deviation 61.1 fL (35.1-46.3); Red Blood Cell Count 3.47 M/mm3 (3.80-5.20); White Blood Cell Count 10.17 K/mm3 (4.00-11.30)
[2024-05-26 06:36] LABS: Albumin, Blood 3.9 g/dL (3.4-5.0); Albumin/Globulin Ratio 0.8 (0.8-1.8); Bilirubin, Total 0.4 mg/dL (0.1-1.0); Calcium, Blood 9.3 mg/dL (8.5-10.1); Creatinine, Blood 0.6 mg/dL (0.40-1.00); Globulin, Blood 4.9 g/dL (2.2-4.0); Potassium, Blood 4.3 mmol/L (3.5-5.5); Total Protein, Blood 8.8 g/dL (6.4-8.2)
[2024-05-26 08:01] VITALS: BP 153/82
[2024-05-26 13:06] LABS: Vancomycin, Trough 13.7 ug/mL (5.0-10.0)
[2024-05-26] MEDS ORDERED: Vancomycin HCL 1,000 MG in NS 250 ML IV SCH (13:11)
--- NOTE | 2024-05-26 14:48 | NUR ---
Patient is awake but speaks only 3 or 4 word sentences. Her spouse, Fito, is bedside and brings a kind and caring atmosphere to the room. He is worried about her slow recovery but is encouraged by her "numbers getting back to the normal range." He talks about the cat they had to put down last week and the pets that still remain in the house. I normalize Lisandro concerns and worries and since we already discussed his strong Rastafari beliefs, I provided prayer. The prayer set well with Fito and the patient and they both stated that it was what they needed to boost their spirits. I will continue to remain available to patient and family.
[2024-05-26 15:35] VITALS: BP 151/83
--- NOTE | 2024-05-26 18:44 | NUR ---
NO CHANGES, REPEAT CT TO BE DONE ON 05/27/24 POSSIBLY, PATIENT AND FAMILY ENCOURAGED FOR PT/OT REORDERED, PATIENT HAS A VERY FLAT EFFECT, FAMILY HELPFUL AT BEDSIDE, CONTINUED TO HAVE LOOSE STOOL, BROWN SOFT. EASILY ANSWERS YES/NO, CAN SAY SMALL SENTENCES. REPOSIITONED THROUGH OUT THE DAY, REVIEWED LABS, VITALS SIGNS, AND POSSIBEL OUTCOMES IF PATIENT CONTINUES TO REFSUE PT/OT, FAMILY TO ENCOURAGE PATIENT TO WORK WITH PT/OT, WILL RELAY TO PM [id number]
[2024-05-26 19:11] VITALS: BP 151/82
[2024-05-27 02:43] VITALS: BP 149/79
--- NOTE | 2024-05-27 05:36 | NUR ---
PT FOUND INCONTINENT OF SOFT STOOLS ON ROUNDING X3. PT C/O PAIN WITH REPOSITIONING. PT DENIES PAIN AT REST. PT RESTING QUIETLY IN BED WITH EYEC CLOSED AT THIS TIME. RESP EVEN AND UNLABORED. NO DISTRESS NOTED.
[2024-05-27 05:42] LABS: BASOPHILS PERCENT AUTO 1 % (0-2); EOSINOPHILS ABSOLUTE AUTO 0.12 K/mm3 (0.00-0.68); EOSINOPHILS PERCENT AUTO 1 % (0-6); Hematocrit 33.6 % (33.0-51.0); Hemoglobin 10.7 g/dL (11.5-16.0); IMMATURE GRAN ABSOLUTE AUTO 0.05 K/mm3 (0.00-0.10); IMMATURE GRAN PERCENT AUTO 1 % (0-1); LYMPHOCYTES ABSOLUTE AUTO 1.68 K/mm3 (0.84-5.20); LYMPHOCYTES PERCENT AUTO 16 % (21-46); MONOCYTES ABSOLUTE AUTO 0.99 K/mm3 (0.16-1.47); MONOCYTES PERCENT AUTO 9 % (4-13); Mean Corpuscular HGB 31.2 pg (26.0-34.0); Mean Corpuscular HGB Conc 31.8 g/dL (31.5-36.5); Mean Corpuscular Volume 98 fL (80-100); Mean Platelet Volume 8.2 fL (9.1-12.4); NEUTROPHILS ABSOLUTE AUTO 7.93 K/mm3 (1.96-9.15); NEUTROPHILS PERCENT AUTO 73 % (41-73); Platelet Count 381 K/mm3 (150-400); RDW Standard Deviation 61.3 fL (35.1-46.3); Red Blood Cell Count 3.43 M/mm3 (3.80-5.20); White Blood Cell Count 10.87 K/mm3 (4.00-11.30)
--- NOTE | 2024-05-27 05:49 | NUR ---
PT RESING QUIETLY THROUGH THE NIGHT. REPOSTIONED Q 2 HOURS. BIPAP IN USE. O2 PULSE OXIMETER IN USE. SATS 94 %. NO DISTRESS NOTED.
[2024-05-27 06:11] LABS: Albumin, Blood 4.2 g/dL (3.4-5.0); Albumin/Globulin Ratio 0.9 (0.8-1.8); Bilirubin, Total 0.5 mg/dL (0.1-1.0); Bun/Creatinine Ratio 36.8 (12.0-20.0); Calcium, Blood 9.8 mg/dL (8.5-10.1); Creatinine, Blood 0.63 mg/dL (0.40-1.00); Globulin, Blood 4.5 g/dL (2.2-4.0); Potassium, Blood 4.6 mmol/L (3.5-5.5); Total Protein, Blood 8.7 g/dL (6.4-8.2)
[2024-05-27 07:42] VITALS: BP 152/90
--- NOTE | 2024-05-27 14:43 | NUR ---
Spiritual care visit conducted. Patient was alert, spouse was bedside. I provided encouragement and prayer. Both voiced gratitude.
[2024-05-27 14:51] VITALS: BP 146/72
--- NOTE | 2024-05-27 18:28 | NUR ---
PATIENT MORE INTERACTIVE THROUGH OUT THE DAY, YELLS OUT NEEDS, AT BEDSIDE HELPFUL WITH CARE, CT THIS AM, DR KHANNA REPORTED RESULT TO PATIENT AND . PATIENT WORKED WITH PT TODAY, SAT AT THE EDGE OF BED, SUPPORTING SELF, TF CHANGED FOR MORE FIBER, VERY FLAT EFFECT, VSS, REPOSITIONED THROUGH OUT THE DAY, MEDICATED WITH TYLENOL FOR LEG/NECK PATIENT, PATIENT CONTINUES TO COMPLAIN OF BEING HOT/COLD, CALL LIGHT WITH IN REACH, PATIENT NOT IMPULSIVE, PATIENT DOES NOT ALWAYS MAKE HER NEEDS CLEARLY KNOWN, WILL RELAY TO PM RN
[2024-05-27 19:33] VITALS: BP 152/75
--- NOTE | 2024-05-28 03:14 | NUR ---
INDUSTRIAL MECHANIC SUMMARY VSS. VOICED FEELING "HOT" AT HS, TEMP 97.6 AND COOL WET CLOTH TO FOREHEAD. HOB ELEVATED FOR CONFORT AND TO PREVENT ASPIRATION SHE IS ON A TUBE FEEDING WELL. PUREWICK IN USE. REPOSITIONED INTERMITTENTLY FOR COMFORT AND SKIN MAINTENANCE AND CHANGED FOR INCONT - SEE DOCUMENTATION FOR DETAILS. HAS BEEN RESTING QUIETLY SINCE CLOTH TO FOREHEAD. CALL LIGHT IN REACH, RAILS UP X 2 AND BED IN LOW POSITION FOR SAFETY. ANTIBIOTICS INFUSING PER MD ORDERS - SEE MAR FOR DETAILS OF MEDS. WILL CONTINUE TO MONITOR
[2024-05-28 04:20] VITALS: BP 154/87
[2024-05-28 05:04] LABS: BASOPHILS ABSOLUTE AUTO 0.07 K/mm3 (0.00-0.23); BASOPHILS PERCENT AUTO 1 % (0-2); EOSINOPHILS ABSOLUTE AUTO 0.12 K/mm3 (0.00-0.68); EOSINOPHILS PERCENT AUTO 1 % (0-6); Hematocrit 32.8 % (33.0-51.0); Hemoglobin 10.6 g/dL (11.5-16.0); IMMATURE GRAN ABSOLUTE AUTO 0.04 K/mm3 (0.00-0.10); IMMATURE GRAN PERCENT AUTO 0 % (0-1); LYMPHOCYTES ABSOLUTE AUTO 2.11 K/mm3 (0.84-5.20); LYMPHOCYTES PERCENT AUTO 23 % (21-46); MONOCYTES ABSOLUTE AUTO 0.83 K/mm3 (0.16-1.47); MONOCYTES PERCENT AUTO 9 % (4-13); Mean Corpuscular HGB 31.5 pg (26.0-34.0); Mean Corpuscular HGB Conc 32.3 g/dL (31.5-36.5); Mean Corpuscular Volume 97 fL (80-100); Mean Platelet Volume 8.3 fL (9.1-12.4); NEUTROPHILS ABSOLUTE AUTO 5.99 K/mm3 (1.96-9.15); NEUTROPHILS PERCENT AUTO 65 % (41-73); Platelet Count 345 K/mm3 (150-400); RDW Coefficient Variation 16.7 % (11.7-14.2); RDW Standard Deviation 59.7 fL (35.1-46.3); Red Blood Cell Count 3.37 M/mm3 (3.80-5.20); White Blood Cell Count 9.16 K/mm3 (4.00-11.30)
[2024-05-28 05:36] LABS: Albumin, Blood 4.4 g/dL (3.4-5.0); Bilirubin, Total 0.6 mg/dL (0.1-1.0); Bun/Creatinine Ratio 38.2 (12.0-20.0); Calcium, Blood 10.5 mg/dL (8.5-10.1); Creatinine, Blood 0.6 mg/dL (0.40-1.00); Globulin, Blood 4.5 g/dL (2.2-4.0); Potassium, Blood 4.4 mmol/L (3.5-5.5); Total Protein, Blood 8.9 g/dL (6.4-8.2)
[2024-05-28 07:33] VITALS: BP 146/77
[2024-05-28] MEDS ORDERED: Protein Supplement 30 ML UD PT SCH (09:00)
[2024-05-28 12:37] LABS: Vancomycin, Trough 13.8 ug/mL (5.0-10.0)
[2024-05-28 15:04] VITALS: BP 174/92
[2024-05-28] MEDS ORDERED: Losartan Potassium 25 MG Tab PO ONE (15:10)
--- NOTE | 2024-05-28 18:28 | NUR ---
SHIFT SUMMARY PT CONT LEVEL OF CARE WITH NO ACUTE CHANGES NOTED. PT CONT TO BE WITHDRAWN BUT IS A&O X1-2. PT NOTED TO BE INCON OF BM THIS SHIFT. PT FAMILY HAD A MEETING WITH PHYSICIAN THIS AFTERNOON AND PLAN IS FOR PT TO CONT ABT TX VIA IV AND FRIDAY THEY WILL RESCAN PT TO SEE IF ABCESS HAS IMPROVED. PT THEN MAY GO HOME WITH HOME HEALTH.
[2024-05-28 19:39] VITALS: BP 159/77
[2024-05-29 02:22] VITALS: BP 172/92
--- NOTE | 2024-05-29 03:30 | NUR ---
STEREOPTIC PROJECTION TOPOGRAPHER SUMMARY BP ELEVATED BUT WITHIN RANGE OF VS PAST FEW DAYS, OTHERWISE VSS. ASYMPTOMATIC. ALERT AND ORIENTED X 1 - 2. TUBE FEEDING CONTINUES AND IV ANTIBIOTICS CONTINUE TO INFUSE ORDERED. TOLERATES PO MEDS, ASPIRATION PRECAUTIONS MAINTAINED. INCONT A FEW TIMES AND CHANGED WITH 2 PERSON ASSIST, AND REPOSITIONED INTERMITTENTLY FOR COMFORT. HAS BEEN RESTING QUIETLY WITH OCCASIONAL INTERRUPTIONS. CALL LIGHT IN REACH, RAILS UP X 2 AND BED IN LOW POSITION FOR SAFETY. WILL CONTINUE TO MONITOR
[2024-05-29 07:38] VITALS: BP 176/99
[2024-05-29] MEDS ORDERED: Losartan Potassium 50 MG Tab PO SCH (09:00)
[2024-05-29 15:22] VITALS: BP 175/93
--- NOTE | 2024-05-29 16:18 | NUR ---
LEFT MESSAGE WITH DR DESAI REGARDING PATIENT'S HIGH BLOOD PRESSURE BEING 170S/90S
--- NOTE | 2024-05-29 19:18 | NUR ---
PATIENT A&OX 2-3, PLEASANT AND COOPERATIVE. OBEYS COMMANDS. ON BEDREST, USING DEPENDS. J-TUBE FLUSHED, WOUND CARE COMPLETED TO J-TUBE SITE. TUBING TO J-TUBE CHANGED AT 1600. RCVD PRN TYLENOL FOR [place] AT 1845. ABX RUNNING THROUGH JASON POWERGLIDE. PATIENTS BED IN LOW POSITION AND CALL LIGHT WITHIN REACH.
[2024-05-29 20:11] VITALS: BP 177/90
[2024-05-30 03:33] VITALS: BP 176/92
--- NOTE | 2024-05-30 04:59 | NUR ---
INFORMATION SYSTEMS MANAGER SUMMARY PT ORIENTED TO SELF, FAMILY, AND SOME SITUATION. PT LETHARGIC/DROWSY. COOPERATIVE WITH CARE. ABLE TO FOLLOW SIMPLE STEP COMMANDS. PT NEEDING ENCOURAGMENT FOR PARTICIPATION IN CARE. PT DID HAVE 3 EXTRA LARGE LOOSE BOWEL MOVEMENTS T/O THE NIGHT. PT CHANGED PROMPTLY AND BARRIER CREAM APPLIED TO COCCYX. PT REPOSITIONED Q2 T/O THE NIGHT. PEG TUBE SIT CONTINUES TO LEAK. SITE CLEANED AND DRESSED WITH ADDITIONAL TEGADERM TO REENFORCE DRESSING. CALL LIGHT ACCESSIBLE. REGULAR INTERVAL ROUNDING COMPLETE.
[2024-05-30 05:24] LABS: BASOPHILS ABSOLUTE AUTO 0.08 K/mm3 (0.00-0.23); BASOPHILS PERCENT AUTO 1 % (0-2); EOSINOPHILS PERCENT AUTO 2 % (0-6); Hematocrit 33.7 % (33.0-51.0); IMMATURE GRAN ABSOLUTE AUTO 0.03 K/mm3 (0.00-0.10); IMMATURE GRAN PERCENT AUTO 0 % (0-1); LYMPHOCYTES ABSOLUTE AUTO 1.77 K/mm3 (0.84-5.20); LYMPHOCYTES PERCENT AUTO 19 % (21-46); MONOCYTES ABSOLUTE AUTO 0.88 K/mm3 (0.16-1.47); MONOCYTES PERCENT AUTO 10 % (4-13); Mean Corpuscular HGB 31.4 pg (26.0-34.0); Mean Corpuscular HGB Conc 32.6 g/dL (31.5-36.5); Mean Corpuscular Volume 96 fL (80-100); Mean Platelet Volume 8.5 fL (9.1-12.4); NEUTROPHILS ABSOLUTE AUTO 6.33 K/mm3 (1.96-9.15); NEUTROPHILS PERCENT AUTO 68 % (41-73); Platelet Count 323 K/mm3 (150-400); RDW Coefficient Variation 16.5 % (11.7-14.2); RDW Standard Deviation 58.2 fL (35.1-46.3); White Blood Cell Count 9.29 K/mm3 (4.00-11.30)
[2024-05-30 05:59] LABS: Albumin, Blood 4.6 g/dL (3.4-5.0); Bilirubin, Total 0.6 mg/dL (0.1-1.0); Bun/Creatinine Ratio 37.8 (12.0-20.0); Calcium, Blood 10.5 mg/dL (8.5-10.1); Creatinine, Blood 0.66 mg/dL (0.40-1.00); Globulin, Blood 4.6 g/dL (2.2-4.0); Total Protein, Blood 9.2 g/dL (6.4-8.2)
[2024-05-30 07:47] VITALS: BP 177/96
[2024-05-30] MEDS ORDERED: Losartan Potassium 50 MG Tab PO ONE (14:05)
[2024-05-30 15:46] VITALS: BP 180/85
--- NOTE | 2024-05-30 16:35 | NUR ---
DR MEDINA TO BEDSIDE TODAY AROUND 1100. ASKED HIM TO REVIEW HER BLOOD PRESSURES THEY'VE BEEN SBP >170s. HE REPORTED HE WILL LOOK AT THESE.
--- NOTE | 2024-05-30 17:17 | NUR ---
SHIFT SUMMARY; PATIENT REMAINS ON BEDREST. SHE HAS FLAT AFFECT. SPEAKING IN SOFT VOICE AND DOES NOT MAKE EYE CONTACT. TUBE FEEDS ORDERED. WOUND DRESSING CHANGE TO SITE GAUZE PADS PLACED OVER SITE AND TEGADERM. GREEN DRAINAGE NOTED AND EXCORIATION FROM MOISTURE, DECISION NOT TO PLACE OSTOMY WAFER OVER SITE AT THIS TIME. AIR DRY. WILL PASS ON TO NOC SHIFT TO PLACE WAFER OVER SITE IF IT HAS DRIED OUT. PASS ON TO DAY SHIFT RN TO NOTIFY PROVIDER OF INCREASED REDNESS AND EXCORIATION OF SITE.
[2024-05-30 19:42] VITALS: BP 172/91
[2024-05-31 02:28] VITALS: BP 169/93
--- NOTE | 2024-05-31 03:09 | NUR ---
CLINICAL DOCUMENTATION DEVELOPER SUMMARY BP ELEVATED, OTHERWISE VSS. MORE RESPONSIVE TO VERBAL CUES TONIGHT THAN NOTED 24 HR AGO. TUBE FEEDING CONTINUES AT 50 ML/HR AND 125 ML H20 FLUSH ORDERED. ABD DRESSING CHANGED, NOTE SLIGHT REDNESS AT SITE. REPOSITIONED AND CHANGED INTERMITTENTLY THIS SHIFT FOR COMFORT AND HAD LARGE LOOSE STOOL X 1. HAS BEEN RESTING QUIETLY WITH OCCASIONAL INTERRUPTION. CALL LIGHTIN REACH, RAILS UP X 2 AND BED IN LOW POSITION FOR SAFETY. HOB ELEVATED FOR ASPIRATION PRECAUTIONS. WILL CONT TO MONITOR
[2024-05-31 05:05] LABS: BASOPHILS ABSOLUTE AUTO 0.07 K/mm3 (0.00-0.23); BASOPHILS PERCENT AUTO 1 % (0-2); EOSINOPHILS ABSOLUTE AUTO 0.23 K/mm3 (0.00-0.68); EOSINOPHILS PERCENT AUTO 3 % (0-6); Hemoglobin 10.7 g/dL (11.5-16.0); IMMATURE GRAN ABSOLUTE AUTO 0.05 K/mm3 (0.00-0.10); IMMATURE GRAN PERCENT AUTO 1 % (0-1); LYMPHOCYTES PERCENT AUTO 23 % (21-46); MONOCYTES ABSOLUTE AUTO 0.86 K/mm3 (0.16-1.47); MONOCYTES PERCENT AUTO 9 % (4-13); Mean Corpuscular HGB 31.8 pg (26.0-34.0); Mean Corpuscular HGB Conc 33.4 g/dL (31.5-36.5); Mean Corpuscular Volume 95 fL (80-100); Mean Platelet Volume 8.1 fL (9.1-12.4); NEUTROPHILS ABSOLUTE AUTO 5.88 K/mm3 (1.96-9.15); NEUTROPHILS PERCENT AUTO 64 % (41-73); Platelet Count 283 K/mm3 (150-400); RDW Coefficient Variation 16.3 % (11.7-14.2); RDW Standard Deviation 56.8 fL (35.1-46.3); Red Blood Cell Count 3.37 M/mm3 (3.80-5.20); White Blood Cell Count 9.19 K/mm3 (4.00-11.30)
[2024-05-31 05:37] LABS: Albumin, Blood 4.6 g/dL (3.4-5.0); Bilirubin, Total 0.6 mg/dL (0.1-1.0); Bun/Creatinine Ratio 41.4 (12.0-20.0); Calcium, Blood 10.8 mg/dL (8.5-10.1); Creatinine, Blood 0.65 mg/dL (0.40-1.00); Globulin, Blood 4.6 g/dL (2.2-4.0); Total Protein, Blood 9.2 g/dL (6.4-8.2)
[2024-05-31 07:39] VITALS: BP 191/103
[2024-05-31] MEDS ORDERED: Losartan Potassium 50 MG Tab PO SCH (09:00)
[2024-05-31] MEDS ORDERED: HydrALAZINE HCl 20 MG / ML 1ML Vial IV PRN (09:00)
--- NOTE | 2024-05-31 09:00 | NUR ---
Pt laying in bed opens eyes when spoke to but minimally responsive, when asked if she slept well durring the night it was I dont know, refused breakfast this am, lungs are clear in upper [place], dim in bases, on r/a, resp even and unlaobred, no cough noted, on r/a, hrr, no edema noted, ppp+2, cap refill <3 sec vs stable, afebrile, power glide to little, site is clear and patent, btx4, abd flat soft nontender, voids via purwick at this time, has peg tube for supplimental feed, jevity 1.5 infusing at 50mls, no residual this am, skin c/w/d, dayana raygoza, call light in reach.
[2024-05-31 12:47] LABS: Vancomycin, Trough 16.2 ug/mL (5.0-10.0)
[2024-05-31 15:35] VITALS: BP 157/96
--- NOTE | 2024-05-31 18:48 | NUR ---
Pt very reluctant to physically move, has had a headache this afternoon, spouce in room most of the day, no acute changes this shift, call light in reach.
[2024-05-31 19:15] VITALS: BP 172/95
[2024-06-01 00:34] VITALS: BP 187/103
[2024-06-01 04:19] VITALS: BP 153/79
[2024-06-01 05:46] LABS: BASOPHILS ABSOLUTE AUTO 0.08 K/mm3 (0.00-0.23); BASOPHILS PERCENT AUTO 1 % (0-2); EOSINOPHILS ABSOLUTE AUTO 0.17 K/mm3 (0.00-0.68); EOSINOPHILS PERCENT AUTO 1 % (0-6); Hemoglobin 10.7 g/dL (11.5-16.0); IMMATURE GRAN ABSOLUTE AUTO 0.05 K/mm3 (0.00-0.10); IMMATURE GRAN PERCENT AUTO 0 % (0-1); LYMPHOCYTES PERCENT AUTO 15 % (21-46); MONOCYTES ABSOLUTE AUTO 1.04 K/mm3 (0.16-1.47); MONOCYTES PERCENT AUTO 9 % (4-13); Mean Corpuscular HGB 31.4 pg (26.0-34.0); Mean Corpuscular HGB Conc 32.4 g/dL (31.5-36.5); Mean Corpuscular Volume 97 fL (80-100); Mean Platelet Volume 8.7 fL (9.1-12.4); NEUTROPHILS ABSOLUTE AUTO 9.05 K/mm3 (1.96-9.15); NEUTROPHILS PERCENT AUTO 74 % (41-73); Platelet Count 292 K/mm3 (150-400); RDW Coefficient Variation 16.2 % (11.7-14.2); RDW Standard Deviation 58.4 fL (35.1-46.3); Red Blood Cell Count 3.41 M/mm3 (3.80-5.20); White Blood Cell Count 12.19 K/mm3 (4.00-11.30)
--- NOTE | 2024-06-01 06:12 | NUR ---
Shift Summary No BM this shift, per report pt had 3 loose watery stools during dayshift yesterday. On tube feeding at 50 ml/hr, no issues with leaking or drainage. No c/o of pain or nausea. Pt did state she was having trouble breathing last night, I put her on 0.5L O2 for comfort and called RT who did a breathing treatment. O2 sat did not drop below 95% and lung sounds are clear. Pt was very hypertensive last night, 187/103, gave 1 PRN dose of Hydralazine. BP is improved this AM.
[2024-06-01 06:27] LABS: Albumin, Blood 4.5 g/dL (3.4-5.0); Albumin/Globulin Ratio 1.1 (0.8-1.8); Bilirubin, Total 0.5 mg/dL (0.1-1.0); Bun/Creatinine Ratio 43.8 (12.0-20.0); Creatinine, Blood 0.62 mg/dL (0.40-1.00); Globulin, Blood 4.2 g/dL (2.2-4.0); Total Protein, Blood 8.7 g/dL (6.4-8.2)
[2024-06-01 08:01] VITALS: BP 154/91
[2024-06-01 14:32] LABS: Magnesium, Blood 2.6 mg/dL (1.6-2.4); Phosphorus, Blood 2.7 mg/dL (2.5-4.9)
[2024-06-01 15:09] VITALS: BP 159/99
[2024-06-01] MEDS ORDERED: OxyCODONE HCL 5 MG TAB PO PRN (16:30)
[2024-06-01] MEDS ORDERED: Banana Flakes/Tos 1 EA Powder Pack PT SCH (17:30)
--- NOTE | 2024-06-01 18:05 | NUR ---
SHIFT SUMMARY PT IS A/OX2-3. PT GETTING TUBE FEEDINGS OF JEVITY 1.5 AT 50ML/HR. PT IS ABLE TO EAT HOWEVER RUFUSES, ABLE TO SWALLOW PILLS WHOLE WITH WATER. PT ON RA, NO TELE. ANTIBIOTICS ADMINISTERED THROUGHOUT THE SHIFT. THIS AFTERNOON PT DESCRIBES A HEADACHE MAINTAINING 8-9 EVEN WITH PRN TYLENOL AND OXYCODONE. PT ALSO BEGAN TO DESCRIBE FEELING NAUSEOUS, MEDICATED WITH PRN ZOFRAN. PT'S FAMILY AT BEDSIDE THROUGHOUT THIS SHIFT. PT AND FAMILY ABLE TO MAKE NEEDS KNOWN.
[2024-06-01 20:09] VITALS: BP 162/79
[2024-06-02 03:27] VITALS: BP 161/81
--- NOTE | 2024-06-02 04:15 | NUR ---
SHIFT SUMMARY PATIENT HAD NO ACUTE CHANGES. AXOX 3 AND BEDREST USING MINIMAL WORDS. PEG TUBE WITH CONTINUOUS JEVITY 1.5 @ 50 mL/HR. SPOUSE REPORTS SHE CAN EAT BUT REFUSES TO. TAKES MEDICATION WHOLE WITH WATER. POWERGLIDE RU ARM INTACT. IV ABXS INFUSED. REPORTED NAUSEOUS X ONE AND IV REGLAN 10 MG GIVEN. REPORTED GENERAL PAIN WITH [place] AND OXYCODONE 5 MG GIVEN. DENIES CHEST PAIN AND SOB. SPOUSE STAYED FIRST PART OF SHIFT. CALL LIGHT IN REACH. BED IN LOWEST POSITION. WILL CONTINUE TO MONITOR UNTIL DAY SHIFT NURSE ASSUMES CARE.
[2024-06-02 05:48] LABS: BASOPHILS ABSOLUTE AUTO 0.07 K/mm3 (0.00-0.23); BASOPHILS PERCENT AUTO 1 % (0-2); EOSINOPHILS ABSOLUTE AUTO 0.27 K/mm3 (0.00-0.68); EOSINOPHILS PERCENT AUTO 3 % (0-6); Hematocrit 31.2 % (33.0-51.0); IMMATURE GRAN ABSOLUTE AUTO 0.05 K/mm3 (0.00-0.10); IMMATURE GRAN PERCENT AUTO 1 % (0-1); LYMPHOCYTES ABSOLUTE AUTO 1.61 K/mm3 (0.84-5.20); LYMPHOCYTES PERCENT AUTO 18 % (21-46); MONOCYTES ABSOLUTE AUTO 0.87 K/mm3 (0.16-1.47); MONOCYTES PERCENT AUTO 10 % (4-13); Mean Corpuscular HGB 31.6 pg (26.0-34.0); Mean Corpuscular HGB Conc 32.1 g/dL (31.5-36.5); Mean Corpuscular Volume 99 fL (80-100); Mean Platelet Volume 8.5 fL (9.1-12.4); NEUTROPHILS PERCENT AUTO 68 % (41-73); Platelet Count 262 K/mm3 (150-400); RDW Coefficient Variation 16.6 % (11.7-14.2); RDW Standard Deviation 60.4 fL (35.1-46.3); Red Blood Cell Count 3.16 M/mm3 (3.80-5.20); White Blood Cell Count 8.97 K/mm3 (4.00-11.30)
[2024-06-02 06:18] LABS: Albumin, Blood 4.3 g/dL (3.4-5.0); Bilirubin, Total 0.5 mg/dL (0.1-1.0); Bun/Creatinine Ratio 39.5 (12.0-20.0); Calcium, Blood 9.9 mg/dL (8.5-10.1); Creatinine, Blood 0.74 mg/dL (0.40-1.00); Globulin, Blood 4.2 g/dL (2.2-4.0); Potassium, Blood 4.2 mmol/L (3.5-5.5); Total Protein, Blood 8.5 g/dL (6.4-8.2)
[2024-06-02 07:38] VITALS: BP 149/80
[2024-06-02] MEDS ORDERED: Furosemide 20 MG Tab PO SCH (09:00)
--- NOTE | 2024-06-02 11:47 | NUR ---
Met with pt and last evening. The patient continues avoiding eye contact during conversation with flat affect. She states she "doesn't know" why she hasn't been working with therapy, and v/u that she is getting weaker without therapy. She tells her she will begin working with therapy, but unsure this is the case given her decisions so far this hospitalization. Will f/u with them tomorrow.
--- NOTE | 2024-06-02 13:11 | NUR ---
Spiritual care visit conducted. Patient is lying in bed and sleeping. Fito talks to me about his fear that he will be told that the patient will be discharged home and and he will not be ready with the moving of furniture into storage and other details. He also states his worries about how he would be able to manage her care while she is in the current condition that she is in. Welcomed news occurs when later in our conversation Care Management comes by and states that the patient will go to a SNF 1st. Fito is very grateful and expresses that a huge weight is lifted from him. I provided therapeutic listening, and prayer. Fito showed signs of reduced stress. I will continue to remain available to patient and family.
[2024-06-02 16:20] VITALS: BP 168/83
--- NOTE | 2024-06-02 18:31 | NUR ---
SHIFT SUMMARY PT IS A/OX3 AND BEDREST AT THIS TIME. PT USES MINIMAL WORDS AND DEMONSTRATES A FLAT AFFECT DURING CARE. PT RECIEVING TUBE FEEDINGS OF JEVITY 1.5 AT 50 ML/HR. PT IS ABLE TO EAT HOWEVER REFUSES, PT ABLE TO TAKE PILLS WHOLE WITH WATER. PT REMAINS ON RA, NO TELE. AGAIN THIS SHIFT THE PT DESCRIBED A HEADACHE MAINTAINING AN 8-9, GIVEN PRN TYLENOL AND OXYCODONE PER NOV. PT NAUSOUS THIS AFTERNOON, GIVEN PRN ZOFRAN PER NOV. PT'S AT BEDSIDE THROUGHOUT THIS SHIFT. PLANS FOR DISCHARGING TO SNF. PT AND FAMILY ABLE TO MAKE NEEDS KNOWN.
[2024-06-02 19:42] VITALS: BP 165/82
[2024-06-02] MEDS ORDERED: TraZODone HCl 100 MG Tab PO PRN (22:10)
[2024-06-03 04:58] VITALS: BP 151/84
--- NOTE | 2024-06-03 05:33 | NUR ---
Patient alert and oriented x3, VSS, resting in bed. PEG tube in place, tolerating tube feeding well. Patient requested PRN sleep aide as per home medication list, hospitalist team notified and order received, entered by RN, administered per eMAR, tolerated well by patient. Patient repositioned in bed by care staff, frequently incontinent of bowel and bladder. IV antibiotics tolerated as scheduled.
[2024-06-03 05:42] LABS: BASOPHILS ABSOLUTE AUTO 0.06 K/mm3 (0.00-0.23); BASOPHILS PERCENT AUTO 1 % (0-2); EOSINOPHILS ABSOLUTE AUTO 0.33 K/mm3 (0.00-0.68); EOSINOPHILS PERCENT AUTO 4 % (0-6); Hematocrit 31.5 % (33.0-51.0); Hemoglobin 10.3 g/dL (11.5-16.0); IMMATURE GRAN ABSOLUTE AUTO 0.04 K/mm3 (0.00-0.10); IMMATURE GRAN PERCENT AUTO 1 % (0-1); LYMPHOCYTES ABSOLUTE AUTO 1.62 K/mm3 (0.84-5.20); LYMPHOCYTES PERCENT AUTO 19 % (21-46); MONOCYTES ABSOLUTE AUTO 0.88 K/mm3 (0.16-1.47); MONOCYTES PERCENT AUTO 10 % (4-13); Mean Corpuscular HGB 32.1 pg (26.0-34.0); Mean Corpuscular HGB Conc 32.7 g/dL (31.5-36.5); Mean Corpuscular Volume 98 fL (80-100); Mean Platelet Volume 8.9 fL (9.1-12.4); NEUTROPHILS ABSOLUTE AUTO 5.62 K/mm3 (1.96-9.15); NEUTROPHILS PERCENT AUTO 66 % (41-73); Platelet Count 285 K/mm3 (150-400); RDW Coefficient Variation 16.5 % (11.7-14.2); Red Blood Cell Count 3.21 M/mm3 (3.80-5.20); White Blood Cell Count 8.55 K/mm3 (4.00-11.30)
[2024-06-03 06:02] LABS: Albumin, Blood 4.1 g/dL (3.4-5.0); Albumin/Globulin Ratio 0.9 (0.8-1.8); Bilirubin, Total 0.4 mg/dL (0.1-1.0); Bun/Creatinine Ratio 39.2 (12.0-20.0); Calcium, Blood 10.1 mg/dL (8.5-10.1); Creatinine, Blood 0.74 mg/dL (0.40-1.00); Globulin, Blood 4.5 g/dL (2.2-4.0); Potassium, Blood 4.3 mmol/L (3.5-5.5); Total Protein, Blood 8.6 g/dL (6.4-8.2)
[2024-06-03 07:55] VITALS: BP 148/80
[2024-06-03] MEDS ORDERED: Miconazole Nitrate 2% 85 GM PWD TOP SCH ×2 (14:45→21:00)
[2024-06-03 15:25] VITALS: BP 160/86
--- NOTE | 2024-06-03 17:44 | NUR ---
SHIFT SUMMARY PT IS A/OX3 AND BEDREST AT THIS TIME. PT MORE VOCAL TODAY THOUGH STILL DEMONSTRATES A FLAT AFFECT. PT CONTINUES TO RECIEVE TUBE FEEDINGS OF JEVITY 1.5 AT 50 ML/HR. PT CONTINUES TO REFUSE TO EAT, ABLE TO TAKE PILLS WHOLE WITH WATER. PT REMAINS ON RA, NO TELE. PT CONTINUES TO DESCRIBE A HEADACHE THIS SHIFT, GIVEN PRN TYLENOL AND OXYCODONE ONCE THIS SHIFT PER MAR. PT'S AND SON VISITED THIS EVENING. PT INCONTINENT OF STOOL AND URINE. PT CALLS USING THE CALL LIGHT APPROPRIATELY.
[2024-06-03 19:20] VITALS: BP 169/85
[2024-06-04 03:10] VITALS: BP 163/82
[2024-06-04 06:02] LABS: BASOPHILS ABSOLUTE AUTO 0.07 K/mm3 (0.00-0.23); BASOPHILS PERCENT AUTO 1 % (0-2); EOSINOPHILS PERCENT AUTO 3 % (0-6); Hematocrit 31.7 % (33.0-51.0); Hemoglobin 10.5 g/dL (11.5-16.0); IMMATURE GRAN ABSOLUTE AUTO 0.05 K/mm3 (0.00-0.10); IMMATURE GRAN PERCENT AUTO 1 % (0-1); LYMPHOCYTES ABSOLUTE AUTO 2.35 K/mm3 (0.84-5.20); LYMPHOCYTES PERCENT AUTO 22 % (21-46); MONOCYTES ABSOLUTE AUTO 0.96 K/mm3 (0.16-1.47); MONOCYTES PERCENT AUTO 9 % (4-13); Mean Corpuscular HGB 31.7 pg (26.0-34.0); Mean Corpuscular HGB Conc 33.1 g/dL (31.5-36.5); Mean Corpuscular Volume 96 fL (80-100); Mean Platelet Volume 8.6 fL (9.1-12.4); NEUTROPHILS ABSOLUTE AUTO 7.08 K/mm3 (1.96-9.15); NEUTROPHILS PERCENT AUTO 66 % (41-73); Platelet Count 294 K/mm3 (150-400); RDW Coefficient Variation 16.4 % (11.7-14.2); RDW Standard Deviation 58.4 fL (35.1-46.3); Red Blood Cell Count 3.31 M/mm3 (3.80-5.20); White Blood Cell Count 10.81 K/mm3 (4.00-11.30)
--- NOTE | 2024-06-04 06:10 | NUR ---
Patient alert and oriented x3, VSS, resting comfortably in bed on room air, turned Q2 hours for pressure injury prevention and incontinence cleaning. PEG tube in place, tube feeding rate at goal and tolerated fair. Patient continues to demonstrate minimal engagement in care activities, voicing disinterest in eating, taking medications orally, or assisting with turns and cleanings. Powerglide in place to right upper arm, scheduled IV antibiotics tolerated well.
[2024-06-04 06:17] LABS: International Normalized Ratio 1.01; Prothrombin Time Results 10.8 Sec (9.7-11.5)
[2024-06-04 06:30] LABS: Albumin/Globulin Ratio 0.8 (0.8-1.8); Bilirubin, Total 0.5 mg/dL (0.1-1.0); Calcium, Blood 10.3 mg/dL (8.5-10.1); Creatinine, Blood 0.86 mg/dL (0.40-1.00); Globulin, Blood 4.9 g/dL (2.2-4.0); Potassium, Blood 4.6 mmol/L (3.5-5.5); Total Protein, Blood 8.9 g/dL (6.4-8.2)
[2024-06-04 07:26] VITALS: BP 148/80
--- NOTE | 2024-06-04 16:29 | NUR ---
SHIFT SUMMARY; PATIENT HAS FLAT AFFECT DURING DAY. SHE DOES NOT MAKE EYE CONTACT. WANTS ALL MEDS CRUSHED AND PLACED THROUGH FEED TUBE. ORDER FOR THORACENTESIS. PATIENT UNABLE TO TOLERATE SITTING UP FOR PROCEDURE. RADIOLOGIST CALLS TO TO NOTIFY NOT ABLE TO DO THIS PROCEDURE. PALLIATIVE CARE VISIT TO PATIENT ALONG WITH HEADRIG SAWYER. PATIENT CONSIDERING GOING HOME ON HOSPICE ON FRIDAY. VERBALIZED TO SPOUSE MEG "I JUST WANT TO GO HOME" WILL CONTINUE TO MONITOR THIS PATIENT CLOSELY FOR ANY WANTS OR NEEDS UNTIL REPORT AND HAND OFF TO NOC SHIFT RN.
[2024-06-04 17:39] VITALS: BP 152/91
[2024-06-04 19:15] VITALS: BP 156/96
[2024-06-05 04:13] VITALS: BP 156/87
--- NOTE | 2024-06-05 06:40 | NUR ---
SHIFT SUMMARY NEFTALI IS ON ROOM AIR. POWERGLIDE ACCESS TO HER RIGHT UPPER EXTREMITY. IV ANTIBIOTICS RUNNING, AND NS FOR TKO. PT IS INCONINENT OF URINE/STOOL IN ATTENDS. JTUBE RECEIVING JEVITY 1.5 AT 50MLS/HR WITH FLUSH OF 125ML EVERY 2 HOURS VIA KANGAROO PUMP. PT ON BEDREST, TWO PERSON TURN. ENCOURAGING PO INTAKE, PT CAN TAKE PILLS WHOLE WITH APPLESAUCE BUT DECLINES TO EAT MUCH OR DRINK/SIP FROM A CUP. PT STATES FREQUENTLY THAT SHE IS SO TIRED. CURRENT PLAN IS DISCHARGE HOME ON HOSPICE WITH [facility]. PT'S COMES DAILY, AND FAMILY IS SUPPORTIVE/INVOLVED. NEFTALI'S AFFECT IS PLEASANT, BUT AT TIMES BECOMES TEARFUL THINKING OF HOW HER FAMILY WILL COPE WITH NEFTALI'S DECLINING HEALTH STATUS.
--- NOTE | 2024-06-05 06:54 | NUR ---
RN CLEANSED J-TUBE SITE WITH WOUND CLEANSER, APPLIED SKIN PREP AND GAUZE OP-SITE SPONGES. J-TUBE SITE WITH GREEN/YELLOW EXUDATE, REDNESS TO SKIN AROUND OP-SITE.
[2024-06-05 07:29] VITALS: BP 152/99
[2024-06-05 17:10] VITALS: BP 157/91
--- NOTE | 2024-06-05 18:27 | NUR ---
PT PLEASANT TODAY. STATED TO MEM THIS MIDDAY THAT DOES NOT TAKE PAIN MEDS OFTEN, USUALLY ONLY TYLENOL. DISCUSSED WITH DR HASSAN. SCHEDULED PAIN MEDS D/C'D AND PT TO RECEIVE PRN. DISCUSSED WITH PT. SHE FEELS THIS SHOULD WORK BETTER. IN AGREEMENT. PT MORE AWAKE THIS WILMER. DID JUST GIVE PAIN MED AND PT STATES PAIN UNDER CONTROL AND WAS SLEEPING UPON REASSESSMENT. PT STATES BANANATROL IS GROSS. TRIED GIVING ZOFRAN PRIOR THIS WILMER. SEEMS TO WORKSOME BETTER. STILL CAN ONLY TOLERATE SMALL AMT EVERY 10 MIN OR SO. ONLY GETTING ABOUT HALF DOWN EACH DOSE. TUBE FEED INFUSING PER ORDERS. NO OTHER NEW CONCERNS NOTED. BED IN LOW POSITION, CALL LITE IN REACH, CALLS APPROP
[2024-06-05 19:15] VITALS: BP 144/83
[2024-06-06 04:07] VITALS: BP 142/80
--- NOTE | 2024-06-06 05:18 | NUR ---
SHIFT SUMMARY PATIENT HAD NO ACUTE CHANGES. AXOX 3 AND BEDREST. DENIES CHEST PAIN, SOB, AND N/V. VSS/AFEBRILE. REPORTED ABDOMEN PAIN X ONE AND OXYCODONE 5 MG GIVEN PER EMAR. MCF[place] X ONE AND TYLENOL 650 MG GIVEN. POERGLIDE RIGHT UPPER ARM INTACT. JEVITY INFUSING @ 50 mL/HR INTO PEG TUBE. DRESSING CHANGED. CBG 169. CALL LIGHT IN REACH. BED IN LOWEST POSITION. WILL CONTINUE TO MONITOR UNTIL DAY SHIFT NURSE ASSUMES CARE.
[2024-06-06 07:14] VITALS: BP 151/77
[2024-06-06 15:25] VITALS: BP 155/96
--- NOTE | 2024-06-06 19:08 | NUR ---
PT PLEASANT COOP TODAY. LEFT TO MAKE READY THE HOME FOR TOMORROW DISCHARGE. PT EXPRESSED CONCERN IF WILL INDEED COME BACK. I REASSURED HER I SPOKE TO HIM ON PHONE AND HE WILL. PT REFUSED BANATROL AND K+ TONITE. STATES JUST DONE FOR NOW. WILL TRY AGAIN NEXT TIME DUE. DID COME IN LATER THIS WILMER. SITTING WITH HER NOW. STOOL LIGHTLY FIRMED SOME TODAY. NO OTHER CONCERNS NOTED. BED IN LOW POSITIOIN, CALL LITE IN REACH, CALLS APPROP
[2024-06-06 19:24] VITALS: BP 147/87
--- NOTE | 2024-06-07 04:00 | NUR ---
SHIFT SUMMARY PATIENT HAD NO ACUTE CHANGES. AXO X 3 AND BEDREST. POWERGLIDE RU ARM INTACT. IV ABX INFUSED. JEVITY INFUSING VIA PEG TUBE @ 50 mL/HR. DENIES CHEST PAIN, SOB, AND N/V. REPORTED ABDOMEN PAIN AND [place]. OXYCODONE GIVEN FOR BACK PAIN AND TYLENOL FOR [place]. REPORTED INSOMNIA AND TRAZADONE 300 MG GIVEN WITH MINIMAL EFFECT. REPORTS IT IS NOT ALWAYS EFFECTIVE. VSS/AFEBRILE. SPOUSE PRESENT FIRST HALF OF SHIFT. CALL LIGHT IN REACH. BED IN LOWEST POSITION. WILL CONTINUE TO MONITOR UNTIL DAY SHIFT NURSE ASSUMES CARE.
[2024-06-07 04:15] VITALS: BP 108/62
[2024-06-07 07:25] VITALS: BP 125/75
[2024-06-07] MEDS ORDERED: BISA10S PR (12:13)
[2024-06-07] MEDS ORDERED: SIME80CH PO (12:13)
[2024-06-07] MEDS ORDERED: OXYC5 PO (12:14)
[2024-06-07] MEDS ORDERED: MIRALAX17 GM PO (12:15)
[2024-06-07] MEDS ORDERED: Promod946 ML PO (12:16)
--- NOTE | 2024-06-07 16:08 | NUR ---
Spiritual care visit conducted. Patient is alert and lying in bed. Fito is bedside and tells me that Janelle will D/C home on hospice today. Janelle voices her excitement about going home and Fito voices his concerns about managing her care. He explains about the efforts made to prepare the house and that the manufacturing engineer is already at their house waiting. I say a prayer and a blessing, transport arrives and we say our goodbyes. They both express gratitude for all that spiritual care has done for them.
== END 2024-06-07 15:06 | disposition hospice, home (50) | DRG 871 ==
LOC: ER 15:21 → MEDS 18:57 → PCU 18:57 → MEDS 05-16 13:23
PROVIDERS: Emergency Medicine; Family Medicine; Hospitalist; Internal Medicine; Nurse Practitioner Acute Care; ADMIT Internal Medicine
PROC: 3E03329 Introduction of Other Anti-infective into Peripheral Vein, Percutaneous Approach (ICD-10-PCS; 2024-05-10)
PROC: 0F923ZX Drainage of Left Lobe Liver, Percutaneous Approach, Diagnostic (ICD-10-PCS; principal; 2024-05-11)
PROC: 0D2DXUZ Change Feeding Device in Lower Intestinal Tract, External Approach (ICD-10-PCS; 2024-05-18)
PROC: 0DJ08ZZ Inspection of Upper Intestinal Tract, Via Natural or Artificial Opening Endoscopic (ICD-10-PCS; 2024-05-19)
DX: A40.8 Other streptococcal sepsis (principal); K75.0 Abscess of liver; N17.9 Acute kidney failure, unspecified; N39.0 Urinary tract infection, site not specified; K94.13 Enterostomy malfunction; J90 Pleural effusion, not elsewhere classified; E27.40 Unspecified adrenocortical insufficiency; E87.20 Acidosis, unspecified; K91.72 Accidental puncture and laceration of a digestive system organ or structure during other procedure; E44.0 Moderate protein-calorie malnutrition; Z66 Do not resuscitate; Z51.5 Encounter for palliative care; R65.20 Severe sepsis without septic shock; J44.9 Chronic obstructive pulmonary disease, unspecified; E03.9 Hypothyroidism, unspecified; I10 Essential (primary) hypertension; B96.20 Unspecified Escherichia coli [E. coli] as the cause of diseases classified elsewhere; B37.9 Candidiasis, unspecified; K21.9 Gastro-esophageal reflux disease without esophagitis; G47.33 Obstructive sleep apnea (adult) (pediatric); E11.9 Type 2 diabetes mellitus without complications; M19.90 Unspecified osteoarthritis, unspecified site; F32.A Depression, unspecified; G43.909 Migraine, unspecified, not intractable, without status migrainosus; K59.09 Other constipation; F41.9 Anxiety disorder, unspecified; E86.0 Dehydration; D64.9 Anemia, unspecified; E86.1 Hypovolemia; R00.1 Bradycardia, unspecified; G25.0 Essential tremor; Z98.84 Bariatric surgery status; Z86.010 Personal history of colon polyps; Z98.890 Other specified postprocedural states; Z90.710 Acquired absence of both cervix and uterus; Z90.49 Acquired absence of other specified parts of digestive tract; Z88.8 Allergy status to other drugs, medicaments and biological substances; Z88.2 Allergy status to sulfonamides; Z79.899 Other long term (current) drug therapy; Z79.890 Hormone replacement therapy; Z68.30 Body mass index [BMI] 30.0-30.9, adult
CPT/HCPCS: 0241U; 36415; 47000; 49452; 51702; 71045; 74176; 74177; 76604; 77012; 80053; 80202; 81001; 82105; 82140; 82945; 82947; 83605; 83615; 83735; 83880; 84100; 84145; 84157; 84443; 85025; 85610; 85651; 86140; 86141; 87040; 87070; 87075; 87077; 87086; 87184; 87186; 87205; 87449; 93005; 93010; 93306; 94640; 94760; 94762; 96361-59; 96374-59; 97162; 97530; 99285-25; A9270; C1729; C1751; C1769; J0360; J0456; J0692; J0696; J1170; J1650; J1720; J1940; J2001; J2405; J2470; J2543; J2704; J2765; J3370; J3480; J7030; J7040; J7050; J7120; P9047; Q9967

== ENCOUNTER 2024-07-01 18:28 | Observation (INO) | payer MEDICARE, OTHER ==
[~2024-07-01] VITALS: Ht 162.6 cm; Wt 77.1 kg
[~2024-07-01 18:28] MED LIST changes: +BISA10S PR; +LOSARTAN POTASS25 M2 PO; +METOPROLOL TART25 MG PO; +Promod946 ML PO; +SIME80CH PO
[2024-07-01 19:11] LABS: BASOPHILS ABSOLUTE AUTO 0.06 K/mm3 (0.00-0.23); BASOPHILS PERCENT AUTO 1 % (0-2); EOSINOPHILS ABSOLUTE AUTO 0.17 K/mm3 (0.00-0.68); EOSINOPHILS PERCENT AUTO 1 % (0-6); Hematocrit 42.6 % (33.0-51.0); Hemoglobin 13.2 g/dL (11.5-16.0); IMMATURE GRAN ABSOLUTE AUTO 0.07 K/mm3 (0.00-0.10); IMMATURE GRAN PERCENT AUTO 1 % (0-1); LYMPHOCYTES ABSOLUTE AUTO 3.83 K/mm3 (0.84-5.20); LYMPHOCYTES PERCENT AUTO 31 % (21-46); MONOCYTES ABSOLUTE AUTO 0.58 K/mm3 (0.16-1.47); MONOCYTES PERCENT AUTO 5 % (4-13); Mean Corpuscular HGB 33.5 pg (26.0-34.0); Mean Corpuscular Volume 108 fL (80-100); Mean Platelet Volume 8.8 fL (9.1-12.4); NEUTROPHILS ABSOLUTE AUTO 7.72 K/mm3 (1.96-9.15); NEUTROPHILS PERCENT AUTO 62 % (41-73); Platelet Count 313 K/mm3 (150-400); RDW Coefficient Variation 16.5 % (11.7-14.2); RDW Standard Deviation 66.6 fL (35.1-46.3); Red Blood Cell Count 3.94 M/mm3 (3.80-5.20); White Blood Cell Count 12.43 K/mm3 (4.00-11.30)
[2024-07-01 19:18] LABS: Albumin, Blood 3.2 g/dL (3.4-5.0); Albumin/Globulin Ratio 0.5 (0.8-1.8); Bilirubin, Total 0.5 mg/dL (0.1-1.0); Bun/Creatinine Ratio 12.4 (12.0-20.0); Calcium, Blood 9.5 mg/dL (8.5-10.1); Creatinine, Blood 1.29 mg/dL (0.40-1.00); Potassium, Blood 4.3 mmol/L (3.5-5.5); Total Protein, Blood 9.2 g/dL (6.4-8.2)
[2024-07-01] MEDS ORDERED: Azithromycin 500 MG in NS 250 ML IV ONE (22:50)
[2024-07-01] MEDS ORDERED: CefTRIAXone Sodium 1,000 MG in NS 100 ML IV ONE (22:50)
[2024-07-01] MEDS ORDERED: FLU VACC TS2024-25(6MOS UP)/PF 45 MCG/0.5 ML SYRINGE IM ONE (23:45)
[2024-07-02] MEDS ORDERED: Piperacillin/Tazobactam Sod 4.5 GM in NS 100 ML IV SCH (00:23)
[2024-07-02] MEDS ORDERED: Lactated Ringer's 1,000 ML IV SCH (00:25)
[2024-07-02 00:44] LABS: Source, Urine Clean Catch
[2024-07-02 00:49] LABS: Appearance, Urine Turbid (Clear); Bilirubin, Urine Neg (Neg); Blood, Urine 2+ (Neg); Color, Urine Yellow (P-Yellow); Glucose Qualitative, Urine Neg (Neg); Ketones, Urine Neg (Neg); Leukocyte Esterase, Urine 2+ (Neg); Nitrite, Urine Neg (Neg); Protein, Urine 2+ (Neg); Specific Gravity, Urine 1.025 (1.003-1.022); Urobilinogen, Urine 1+ (Normal)
[2024-07-02 01:16] LABS: Amorphous Heavy (0-Heavy); Bacteria Mod /hpf; Red Blood Cells, Urine 0-2 /hpf (0-2); Squamous Epithelial Cells Few /hpf (Few)
[2024-07-02 07:12] LABS: Albumin, Blood 3.2 g/dL (3.4-5.0); Albumin/Globulin Ratio 0.5 (0.8-1.8); Bilirubin, Total 0.4 mg/dL (0.1-1.0); Bun/Creatinine Ratio 17.4 (12.0-20.0); Calcium, Blood 9.6 mg/dL (8.5-10.1); Creatinine, Blood 0.98 mg/dL (0.40-1.00); Globulin, Blood 6.2 g/dL (2.2-4.0); Magnesium, Blood 2.6 mg/dL (1.6-2.4); Total Protein, Blood 9.4 g/dL (6.4-8.2)
[2024-07-02 09:00] VITALS: BP 136/70
[2024-07-02] MEDS ORDERED: Docusate Sodium 100 MG Cap PO SCH (09:00)
[2024-07-02] MEDS ORDERED: Enoxaparin 40 MG/0.4 ML SYR SC SCH (09:00)
[2024-07-02] MEDS ORDERED: Lactobacil 2-S.Thermo-Bifido 1 1 Cap PO SCH (09:00)
[2024-07-02] MEDS ORDERED: Acetaminophen 325 MG TABLET PO PRN (09:45)
[2024-07-02] MEDS ORDERED: OxyCODONE HCL 5 MG TAB PO PRN (09:45)
[2024-07-02] MEDS ORDERED: DOCU100 PO (12:14)
[2024-07-02] MEDS ORDERED: Acetaminophen650 M1 PO (12:15)
[2024-07-02] MEDS ORDERED: Ondansetron 4 MG SoluTab SL ONE (14:05)
[2024-07-02] MEDS ORDERED: Ondansetron HCl 2 MG / ML 2ML Vial IV ONE (14:10)
--- NOTE | 2024-07-02 14:20 | NUR ---
CASE CONFERENCE Met with pt and Fito in ED to address return home with hospice. Pt left the hospital approximately a month ago with hospice admission to follow. Per Fito, the patient was placed on [facility] hospice and all was going well until new med haldol was added and given. Fito reports pt's respiration slowed to around 7 breaths per minute and she became non-responsive. He states he had notified [facility] hospice that he was calling for an ambulance due to those symptoms. Pt was given narcan by EMS and transported to [facility]. Ultimately, the patient stated very clearly she wanted to return home and remain on hospice. Fito is in agreement with this. Pt's daughter Elizabeth has been vocal about wanting the patient to "get treatment" and to "try to get well." Attempted to engage in therapeutic listening and provide comfort to daughter. She remained tearful, but does state she knows the choice is her mom's. New POLST filled out with pt and , pt made DNR. Report given to home hospice aide and returned home to resume hospice. POLST sent to registry and medical records.
--- NOTE | 2024-07-02 14:21 | NUR ---
Spiritual Care Visit. Palliative Nurse Request At the request of Nurse Aden, I visited this Pt. who had been brought back to the ED though she was home on hospice. Spouse and daughter are at bedside. Daughter is significantly emotional and verbalizes denial of the Pts. wishes "to go." With theraputic listening and a calming presence this test car driver sought to bring comfort to the daughter. Prayed with Pt. and family .Pt. began experiencing nausea. As a nurse arrived with meds this test car driver excused himself. Will remain available to the Pt. and family.
== END 2024-07-02 17:30 | disposition home or self-care (01) ==
LOC: ER 18:28 → ERHOLD 18:29
PROVIDERS: Emergency Medicine; ADMIT Student in an Organized Health Care Education/Training Program
DX: J96.01 Acute respiratory failure with hypoxia (principal); E03.9 Hypothyroidism, unspecified; K74.60 Unspecified cirrhosis of liver; I10 Essential (primary) hypertension; E11.9 Type 2 diabetes mellitus without complications; J18.9 Pneumonia, unspecified organism; Z88.8 Allergy status to other drugs, medicaments and biological substances; Z88.2 Allergy status to sulfonamides; Z88.5 Allergy status to narcotic agent; Z79.899 Other long term (current) drug therapy
CPT/HCPCS: 36415; 71045; 74176; 80053; 81001; 83735; 85025; 87077; 87086; 87186; 93005; 93010; 96365; 96375; 99285-25; A9270; G0378; J0456; J0696; J7050